=== PATIENT | female | born 1945 | race Caucasian/White ===

== ENCOUNTER 2016-12-29 15:25 | Emergency (ER) | payer OTHER, MEDICARE ==
[2016-12-29 15:33] VITALS: TEMP 97.9
--- NOTE | 2016-12-29 15:49 | CPEKG ---
Heart Rate: 74 RR Interval: 811 P-R Interval: 144 QRSD Interval: 72 QT Interval: 396 QTC Interval: 440 P Jet: 75 QRS Jet: 34 T Wave Jet: 74 EKG Severity - BORDERLINE ECG - EKG Impression: SINUS RHYTHM EKG Impression: BORDERLINE T ABNORMALITIES, ANT-LAT LEADS Electronically Signed By: Jj Lauren 29-Dec-2016 18:15:01
[2016-12-29] MEDS ORDERED: NS 1,000 ML IV ONE (15:58)
--- NOTE | 2016-12-29 16:05 | EDPHY ---
H & P Stated Complaint: chest pressure Time Seen by Provider: 12/29/16 15:38 HPI/ROS: CHIEF COMPLAINT: Chest wall pain HISTORY OF PRESENT ILLNESS: The patient presents to the ED with a 2 day history of chest wall pain. The patient's symptoms began without history of trauma, cough or congestion. She reports a history of similar discomfort with prior history of pneumonia. The patient reportedly used cannabis oil on her chest wall which has resulted in market resolution of her symptoms. The patient was somewhat concerned that her chest pain was software support representative of myocardial infarction prompting her visit to the ED today. Patient has no history of myocardial infarction she does have a history of ulcerative colitis and has chronic abdominal pain from this condition. The patient has undergone a colectomy. She currently has a colostomy bag. The patient reports normal output from the colostomy bag. She denies dysuria. She denies history of exertional chest pain or shortness of breath. Patient denies history of PE or DVT. REVIEW OF SYSTEMS: A comprehensive 10 point review of systems is otherwise negative aside from elements mentioned in the history of present illness. Source: Patient Exam Limitations: No limitations - Personal History Current Tetanus/Diphtheria Vaccine: Unsure - Medical/Surgical History Hx Asthma: Yes Hx Chronic Respiratory Disease: No Hx Diabetes: No Hx Cardiac Disease: No Hx Renal Disease: No Hx Cirrhosis: No Hx Alcoholism: No Hx HIV/AIDS: No Hx Splenectomy or Spleen Trauma: No Other PMH: PMH: asthma, ulcerative colitis, arthritis, chronic neck and back pain, pneumonia, depression, chronic pain with opioid dependence. PSH: Total colectomy with ostomy, 3 sx related to bowel obstructions in the past, HERNIA REPAIR - Social History Smoking Status: Heavy smoker - Physical Exam Exam: General Appearance: Thin female, no acute distress Eyes: Pupils equal and round no pallor or injection ENT, Mouth: Mucous membranes moist Respiratory: Lungs clear to auscultation, mild tenderness to palpation throughout the anterior chest wall Cardiovascular: Regular rate and rhythm Gastrointestinal: Abdomen is soft and nontender, no masses, bowel sounds normal Neurological: A&O, normal motor function, normal sensory exam, normal cranial nerves Skin: Warm and dry, no rashes Musculoskeletal: Neck is supple nontender Extremities: symmetrical, full range of motion Constitutional: Initial Vital Signs Temperature (C) 36.6 C 12/29/16 15:32 Heart Rate 90 12/29/16 15:32 Respiratory Rate 18 12/29/16 15:32 Blood Pressure 109/85 H 12/29/16 15:32 O2 Sat (%) 90 L 12/29/16 15:32 O2 Delivery Mode Nasal Cannula O2 (L/minute) 3 Allergies/Adverse Reactions: amoxicillin Allergy (Verified 12/29/16 15:30) budesonide Allergy (Verified 12/29/16 15:30) cefuroxime Allergy (Verified 12/29/16 15:30) ciprofloxacin Allergy (Verified 12/29/16 15:30) clarithromycin Allergy (Verified 12/29/16 15:30) clavulanic acid Allergy (Verified 12/29/16 15:30) codeine Allergy (Verified 12/29/16 15:30) dicyclomine Allergy (Verified 12/29/16 15:30) Unknown doxycycline Allergy (Verified 12/29/16 15:30) duloxetine HCl [From Cymbalta] Allergy (Verified 12/29/16 15:30) fluconazole Allergy (Verified 12/29/16 15:30) gabapentin Allergy (Verified 12/29/16 15:30) hydrocodone Allergy (Verified 12/29/16 15:30) metronidazole Allergy (Verified 12/29/16 15:30) prednisone Allergy (Verified 12/29/16 15:30) rabeprazole Allergy (Verified 12/29/16 15:30) ranitidine Allergy (Verified 12/29/16 15:30) Home Medications: Medication Instructions Recorded Herbals/Supplements -Info Only 1 ea PO DAILY 08/10/15 Ondansetron Odt [Zofran Odt 4 mg 4 mg PO Q6 PRN 08/10/15 (*)] Albuterol [Proventil Inhaler HFA 2 puffs IH DAILY PRN 08/13/15 (*)] Cholecalciferol Vit D3 [Vitamin D3 1,000 units PO DAILY 05/25/16 (*)] Acetaminophen [Tylenol 325mg (*)] 650 mg PO Q4HRS PRN #0 tab 09/14/16 Melatonin [Melatonin 3 MG (*)] 3 mg PO HS 09/14/16 Nystatin [Mycostatin Oral Liquid 5 ml PO QID PRN 09/14/16 (*)] oxyCODONE IR [Oxycodone Ir (*)] 5 mg PO Q4H PRN 10/22/16 Ascorbic Acid [Vitamin C 500 mg 1,000 mg PO DAILY 11/13/16 (*)] Diazepam [Valium 5 MG (*)] 2.5 - 5 mg PO Q8 PRN 11/13/16 oxyCODONE HCL/ACETAMINOPHEN 1 each PO Q4HRS PRN 11/13/16 [Percocet 10-325 mg Tablet] Acetaminophen [Tylenol 325mg (*)] 650 mg PO Q4HRS PRN #0 tab 11/15/16 Medical Decision Making - Diagnostics EKG Interpretation: EKG: Complete interpretation has been separately recorded in the [email or web address] archive. Summary impression: Sinus rhythm Imaging: Chest x-ray PA lateral: Negative for acute disease by my interpretation ED Course/Re-evaluation: The patient presents to the ED with a 2 day history of anterior chest wall pain which has been resolved with the application of THC ointment. The patient has no ischemic changes on her EKG. The patient has a negative troponin. The patient has stable vital signs and an unremarkable physical examination. At this point time I clinical suspicion for acute coronary syndrome is quite low. I feel she most likely is experiencing musculoskeletal chest pain. The patient will be discharged home and instructed to follow up with her regular primary care provider. She should use ibuprofen for pain. The patient did undergo 3 serial examinations in the ED by myself over a 2.5 hour period. She remained with stable vital signs and an unremarkable physical exam. Differential Diagnosis: Differential diagnosis considered includes costochondritis, pericarditis, acute coronary syndrome, rib fracture, pneumonia, pneumothorax - Data Points Laboratory Results: Laboratory Results 12/29/16 15:45 12/29/16 15:45 12/29/16 15:45 WBC 6.75 10^3/uL (3.80-9.50) RBC 5.22 10^6/uL (4.18-5.33) Hgb 15.3 g/dL (12.6-16.3) Hct 46.9 % (38.0-47.0) MCV 89.8 fL (81.5-99.8) MCH 29.3 pg (27.9-34.1) MCHC 32.6 g/dL (32.4-36.7) RDW 13.5 % (11.5-15.2) Plt Count 346 10^3/uL (150-400) MPV 10.1 fL (8.7-11.7) Neut % (Auto) 76.6 H % (39.3-74.2) Lymph % (Auto) 13.9 L % (15.0-45.0) Davidson % (Auto) 6.4 % (4.5-13.0) Eos % (Auto) 1.5 % (0.6-7.6) Baso % (Auto) 1.3 % (0.3-1.7) Nucleat RBC Rel Count 0.0 % (0.0-0.2) Absolute Neuts (auto) 5.17 10^3/uL (1.70-6.50) Absolute Lymphs (auto) 0.94 L 10^3/uL (1.00-3.00) Absolute Monos (auto) 0.43 10^3/uL (0.30-0.80) Absolute Eos (auto) 0.10 10^3/uL (0.03-0.40) Absolute Basos (auto) 0.09 10^3/uL (0.02-0.10) Absolute Nucleated RBC 0.00 10^3/uL (0-0.01) Immature Gran % 0.3 % (0.0-1.1) Immature Gran # 0.02 10^3/uL (0.00-0.10) Sodium 137 mEq/L (134-144) Potassium 5.8 H mEq/L (3.5-5.2) Chloride 103 mEq/L (97-110) Carbon Dioxide 24 mEq/l (22-31) Anion Gap 10 mEq/L (8-16) BUN 8 mg/dL (7-23) Creatinine 0.6 mg/dL (0.6-1.0) Estimated GFR > 60 Glucose 89 mg/dL (70-100) Calcium 9.6 mg/dL (8.5-10.4) Troponin I < 0.012 ng/mL (0-0.034) Specimen Hemolysis 150 Medications Given: Discontinued Medications Sodium Chloride (Ns) 1,000 mls @ 0 mls/hr IV EDNOW ONE PRN Reason: Wide Open Stop: 12/29/16 15:59 Last Admin: 12/29/16 15:59 Dose: 1,000 mls Departure - Departure Disposition: Home, Routine, Self-Care Clinical Impression: Chest wall pain Condition: Good Instructions: Chest Wall Pain (ED) Additional Instructions: 1. Take Ibuprofen or Motrin 600 mg by mouth three times a day. 2. Please return to the ED for markedly worsening symptoms or other concerns. 3. Please schedule a follow-up appointment with your primary care provider as needed
[2016-12-29 16:12] LABS: % IMMATURE GRANULYOCYTES 0.3 % (0.0-1.1); ABSOLUTE IMMATURE GRANULOCYTES 0.02 10^3/uL (0.00-0.10); ADD DIFF? NO; ADD MORPH? NO; ADD SCAN? NO; ATYPICAL LYMPHOCYTE FLAG 10 (0-99); FRAGMENT RBC FLAG 0 (0-99); HEMATOCRIT 46.9 % (38.0-47.0); HEMOGLOBIN 15.3 g/dL (12.6-16.3); LEFT SHIFT FLG 0 (0-99); LIPEMIA HEMOLYSIS FLAG 80 (0-99); MEAN CELL HEMOGLOBIN 29.3 pg (27.9-34.1); MEAN CELL HEMOGLOBIN CONCENTR. 32.6 g/dL (32.4-36.7); MEAN CELL VOLUME 89.8 fL (81.5-99.8); MEAN PLATELET VOLUME 10.1 fL (8.7-11.7); PLATELET CLUMPS FLAG 0 (0-99); PLATELET COUNT 346 10^3/uL (150-400); RED BLOOD CELL COUNT 5.22 10^6/uL (4.18-5.33); RED CELL DISTRIBUTION WIDTH 13.5 % (11.5-15.2)
[2016-12-29 16:18] LABS: ANION GAP 10 mEq/L (8-16); CALCIUM 9.6 mg/dL (8.5-10.4); CARBON DIOXIDE 24 mEq/l (22-31); CHLORIDE 103 mEq/L (97-110); CREATININE 0.6 mg/dL (0.6-1.0); GLOMERULAR FILTRATION RATE > 60; GLUCOSE 89 mg/dL (70-100); POTASSIUM 5.8 mEq/L (3.5-5.2); SODIUM 137 mEq/L (134-144); SPECIMEN HEMOLYSIS 150
[2016-12-29 16:30] LABS: TROPONIN I < 0.012 ng/mL (0-0.034)
[2016-12-29 16:32] VITALS: BP 118/60
--- NOTE | 2016-12-29 17:45 | DX ---
Chest, Two Views at 1547 hours History: Chest pain. Comparison: October 2016 Findings: Cardiac silhouette is within normal range. Hyperinflation lungs and flattening the hemidiap hragms consistent with COPD. Alveolar opacity in the right lower lobe consistent with pneumonia, new since previous study. Previous cervical fusion hardware. Thoracic dextroscoliosis. No definite pleura l effusion. Impression: 1. Right lower lobe pneumonia. 2. COPD. 3. Recommend follow-up until clear.
[2016-12-29] MEDS ORDERED: IBUPROFEN 600 MG TAB PO ONE (18:45)
[2016-12-29 18:56] VITALS: PULSE 68; RESP 16; O2SAT 98
== END 2016-12-29 18:48 | disposition home or self-care (01) ==
DX: R07.89 Other chest pain (principal); J45.909 Unspecified asthma, uncomplicated; F17.200 Nicotine dependence, unspecified, uncomplicated

== ENCOUNTER 2017-02-27 18:13 | Inpatient (IN) | payer OTHER, MEDICARE ==
--- NOTE | 2017-02-27 18:40 | EDPHY ---
H & P Stated Complaint: abd [id number] abd hx Time Seen by Provider: 02/27/17 18:40 - Personal History Current Tetanus Diphtheria and Acellular Pertussis (TDAP): Unsure - Medical/Surgical History Hx Asthma: Yes Hx Chronic Respiratory Disease: No Hx Diabetes: No Hx Cardiac Disease: No Hx Renal Disease: No Hx Cirrhosis: No Hx Alcoholism: No Hx HIV/AIDS: No Hx Splenectomy or Spleen Trauma: No Other PMH: PMH: asthma, ulcerative colitis, arthritis, chronic neck and back pain, pneumonia, depression, chronic pain with opioid dependence. PSH: Total colectomy with ostomy, 3 sx related to bowel obstructions in the past, HERNIA REPAIR - Social History Smoking Status: Heavy smoker Constitutional: Initial Vital Signs Temperature (C) 36.6 C 02/27/17 18:18 Heart Rate 91 02/27/17 18:18 Respiratory Rate 16 02/27/17 18:18 Blood Pressure 135/81 H 02/27/17 18:18 O2 Sat (%) 96 02/27/17 18:18 O2 Delivery Mode Room Air Allergies/Adverse Reactions: amoxicillin Allergy (Verified 02/27/17 18:17) budesonide Allergy (Verified 02/27/17 18:17) cefuroxime Allergy (Verified 02/27/17 18:17) ciprofloxacin Allergy (Verified 02/27/17 18:17) clarithromycin Allergy (Verified 02/27/17 18:17) clavulanic acid Allergy (Verified 02/27/17 18:17) codeine Allergy (Verified 02/27/17 18:17) dicyclomine Allergy (Verified 02/27/17 18:17) Unknown doxycycline Allergy (Verified 02/27/17 18:17) duloxetine HCl [From Cymbalta] Allergy (Verified 02/27/17 18:17) fluconazole Allergy (Verified 02/27/17 18:17) gabapentin Allergy (Verified 02/27/17 18:17) hydrocodone Allergy (Verified 02/27/17 18:17) metronidazole Allergy (Verified 02/27/17 18:17) prednisone Allergy (Verified 02/27/17 18:17) rabeprazole Allergy (Verified 02/27/17 18:17) ranitidine Allergy (Verified 02/27/17 18:17) Home Medications: Medication Instructions Recorded Herbals/Supplements -Info Only 1 ea PO DAILY 08/10/15 Ondansetron Odt [Zofran Odt 4 mg 4 mg PO Q6 PRN 08/10/15 (*)] Albuterol [Proventil Inhaler HFA 2 puffs IH DAILY PRN 08/13/15 (*)] Cholecalciferol Vit D3 [Vitamin D3 1,000 units PO DAILY 05/25/16 (*)] Acetaminophen [Tylenol 325mg (*)] 650 mg PO Q4HRS PRN #0 tab 09/14/16 Melatonin [Melatonin 3 MG (*)] 3 mg PO HS 09/14/16 Nystatin [Mycostatin Oral Liquid 5 ml PO QID PRN 09/14/16 (*)] oxyCODONE IR [Oxycodone Ir (*)] 5 mg PO Q4H PRN 09/14/16 Ascorbic Acid [Vitamin C 500 mg 1,000 mg PO DAILY 11/13/16 (*)] Diazepam [Valium 5 MG (*)] 2.5 - 5 mg PO Q8 PRN 11/13/16 oxyCODONE HCL/ACETAMINOPHEN 1 each PO Q4HRS PRN 11/13/16 [Percocet 10-325 mg Tablet] Acetaminophen [Tylenol 325mg (*)] 650 mg PO Q4HRS PRN #0 tab 11/15/16 Medical Decision Making ED Course/Re-evaluation: CHIEF COMPLAINT: Chronic abdominal pain HISTORY OF PRESENT ILLNESS: The patient is a 71 y/o female, with 5 previous ED visit for abdominal pain in the last year, complaining of chronic abdominal pain for the last several months. She had an ostomy performed by Dr. Montgomery for ulcerative colitis. The patient reports she followed up with Dr. Montgomery 2 days ago and "she couldn't do anything" for her pain. She was unable to see Dr. Oliveira. Her PCP manages her pain, but has been reducing her narcotic prescriptions recently. The patient says she is using 5 pills of 10mg Oxycodone and 2 doses of 5mg Oxycodone every day without alleviation of her pain. REVIEW OF SYSTEMS: A 10 point review of systems was performed and is negative with the exception of the elements mentioned in the history of present illness. PHYSICAL EXAM: HR, BP, O2 Sat, RR. Temp noted General Appearance: Alert, well hydrated, appropriate, and malnourished appearing. Head: Atraumatic without scalp tenderness or obvious injury Eyes: Pupils equal, round, reactive to light and accommodation, EOMI, no trauma , no injection. Ears: Clear bilaterally, no perforation, normal landmarks Nose: Atraumatic, no rhinorrhea, clear. Throat: There is no erythema or exudates, no lesions, normal tonsils, mucus membranes moist. Neck: Supple, nontender, no lymphadenopathy. Respiratory: No retractions, no distress, no wheezes, and no accessory muscle use. Lungs are clear to auscultation bilaterally. Cardiovascular: Regular rate and rhythm, no murmurs, rubs, or gallops. Good capillary refill all extremities. Gastrointestinal: Abdomen is soft, diffusely tender, non-distended, no masses, no rebound, no guarding, no peritoneal signs. Ostomy has normal output. Musculoskeletal: Normal active ROM of all extremities, atraumatic. Neurological: Alert, appropriate, and interactive. The patient has normal DTRs and non-focal cranial nerves, motor, sensory, and cerebellar exam. Skin: No rashes, good turgor, no nodules on palpation. Past medical history: chronic abdominal pain, ulcerative colitis status post colectomy, chronic continuous opioid dependency, COPD, chronic hypoxemic respiratory failure, depression, anxiety, malnutrition Past surgical history: total colectomy with ostomy - Dr. Montgomery, hernia repair, cervical spine surgery, take down of J-pouch, lysis of adhesions Family history: noncontributory Social history: Family member at bedside. PCP: Kavita Maldonado Prior medical records reviewed including admission 11/13/16 for chronic abdominal pain and vomiting. DIAGNOSTICS/PROCEDURES/CRITICAL CARE TIME: I viewed the images myself on the PACS system. DIFFERENTIAL DIAGNOSIS: The differential diagnosis for the patient's abdominal pain included but was not limited to chronic abdominal pain, ovarian cyst, pelvic inflammatory disease, ovarian torsion, urinary tract infection, ectopic , cholecystitis, and appendicitis. MEDICAL DECISION MAKING: This is a 71 y/o female with a history of chronic abdominal pain and continuous opioid dependency presenting with the same pain again. Her ostomy has had normal output and she denies any new symptoms. She is unwilling to allow me to touch her abdomen due to pain, so examination is difficult. Plan to consult her surgeon and manage her symptoms. IV established. Labs drawn including CBC, CHEM , lipase, LFTs, and UA. 2 tabs PO Oxycodone and 5mg PO Valium administered. 1899: Consulted with Dr. Friedman, surgeon, who is on-call for Dr. Montgomery. He will assess patient in the ED. 1929: Dr. Friedman requests a CTA to rule out ischemic bowel and recommends admission. 1999: Spoke with Dr. Ayon, hospitalist. She accepts admission for chronic abdominal pain. - Data Points Laboratory Results: Laboratory Results 02/27/17 19:23 02/27/17 19:23 02/27/17 02/27/17 19:23 19:23 WBC 7.07 10^3/uL 10^3/uL (3.80-9.50) RBC 4.97 10^6/uL 10^6/uL (4.18-5.33) Hgb 14.3 g/dL g/dL (12.6-16.3) Hct 43.8 % % (38.0-47.0) MCV 88.1 fL fL (81.5-99.8) MCH 28.8 pg pg (27.9-34.1) MCHC 32.6 g/dL g/dL (32.4-36.7) RDW 13.3 % % (11.5-15.2) Plt Count 337 10^3/uL 10^3/uL (150-400) MPV 9.9 fL fL (8.7-11.7) Neut % (Auto) 76.2 % H % (39.3-74.2) Lymph % (Auto) 14.1 % L % (15.0-45.0) Cottle % (Auto) 7.1 % % (4.5-13.0) Eos % (Auto) 0.7 % % (0.6-7.6) Baso % (Auto) 1.6 % % (0.3-1.7) Nucleat RBC Rel Count 0.0 % % (0.0-0.2) Absolute Neuts (auto) 5.39 10^3/uL 10^3/uL (1.70-6.50) Absolute Lymphs (auto) 1.00 10^3/uL 10^3/uL (1.00-3.00) Absolute Monos (auto) 0.50 10^3/uL 10^3/uL (0.30-0.80) Absolute Eos (auto) 0.05 10^3/uL 10^3/uL (0.03-0.40) Absolute Basos (auto) 0.11 10^3/uL H 10^3/uL (0.02-0.10) Absolute Nucleated RBC 0.00 10^3/uL 10^3/uL (0-0.01) Immature Gran % 0.3 % % (0.0-1.1) Immature Gran # 0.02 10^3/uL 10^3/uL (0.00-0.10) Sodium 138 mEq/L mEq/L (134-144) Potassium 5.0 mEq/L mEq/L (3.5-5.2) Chloride 99 mEq/L mEq/L (97-110) Carbon Dioxide 30 mEq/l mEq/l (22-31) Anion Gap 9 mEq/L mEq/L (8-16) BUN 12 mg/dL mg/dL (7-23) Creatinine 0.7 mg/dL mg/dL (0.6-1.0) Estimated GFR > 60 Glucose 93 mg/dL mg/dL (70-100) Calcium 10.1 mg/dL mg/dL (8.5-10.4) Total Bilirubin 0.6 mg/dL mg/dL (0.1-1.4) Conjugated Bilirubin 0.4 mg/dL mg/dL (0.0-0.5) Unconjugated Bilirubin 0.2 mg/dL mg/dL (0.0-1.1) AST 33 IU/L IU/L (14-46) ALT 39 IU/L IU/L (9-52) Alkaline Phosphatase 115 IU/L IU/L (38-126) Total Protein 7.9 g/dL g/dL (6.3-8.2) Albumin 4.3 g/dL g/dL (3.5-5.0) Lipase 21.0 IU/L L IU/L (23-300) Medications Given: Discontinued Medications Diazepam (Valium) 5 mg PO EDNOW ONE Stop: 02/27/17 19:32 Last Admin: 02/27/17 19:34 Dose: 5 mg Hydromorphone HCl (Dilaudid) 2 mg PO EDNOW ONE Stop: 02/27/17 18:53 Last Admin: 02/27/17 18:55 Dose: 2 mg Departure - Departure Disposition: [facility] In[facility] Acute Clinical Impression: Chronic abdominal pain Condition: Fair Report Scribed for: Billy Durant Report Scribed by: Diana Irvin Date of Report: 02/27/17 Time of Report: 18:44
[2017-02-27] MEDS ORDERED: HYDROmorphONE/DILAUDID 2 MG TAB PO ONE (18:52)
[2017-02-27] MEDS ORDERED: DIAZEPAM 5 MG TAB PO ONE (19:31)
[2017-02-27 19:35] LABS: % IMMATURE GRANULYOCYTES 0.3 % (0.0-1.1); ABSOLUTE IMMATURE GRANULOCYTES 0.02 10^3/uL (0.00-0.10); ADD DIFF? NO; ADD MORPH? NO; ADD SCAN? NO; ATYPICAL LYMPHOCYTE FLAG 10 (0-99); FRAGMENT RBC FLAG 10 (0-99); HEMATOCRIT 43.8 % (38.0-47.0); HEMOGLOBIN 14.3 g/dL (12.6-16.3); LEFT SHIFT FLG 0 (0-99); LIPEMIA HEMOLYSIS FLAG 80 (0-99); MEAN CELL HEMOGLOBIN 28.8 pg (27.9-34.1); MEAN CELL HEMOGLOBIN CONCENTR. 32.6 g/dL (32.4-36.7); MEAN CELL VOLUME 88.1 fL (81.5-99.8); MEAN PLATELET VOLUME 9.9 fL (8.7-11.7); PLATELET CLUMPS FLAG 0 (0-99); PLATELET COUNT 337 10^3/uL (150-400); RED BLOOD CELL COUNT 4.97 10^6/uL (4.18-5.33); RED CELL DISTRIBUTION WIDTH 13.3 % (11.5-15.2)
[2017-02-27 19:40] LABS: ALANINE AMINOTRANSFERASE 39 IU/L (9-52); ALBUMIN 4.3 g/dL (3.5-5.0); ALKALINE PHOSPHATASE 115 IU/L (38-126); ANION GAP 9 mEq/L (8-16); ASPARTATE AMINOTRANSFERASE 33 IU/L (14-46); BILIRUBIN,TOTAL 0.6 mg/dL (0.1-1.4); BILIRUBIN-CONJUGATED 0.4 mg/dL (0.0-0.5); BILIRUBIN-UNCONJUGATED 0.2 mg/dL (0.0-1.1); CALCIUM 10.1 mg/dL (8.5-10.4); CARBON DIOXIDE 30 mEq/l (22-31); CHLORIDE 99 mEq/L (97-110); CREATININE 0.7 mg/dL (0.6-1.0); GLOMERULAR FILTRATION RATE > 60; GLUCOSE 93 mg/dL (70-100); SODIUM 138 mEq/L (134-144); TOTAL PROTEIN 7.9 g/dL (6.3-8.2)
[2017-02-27] MEDS ORDERED: IOPAMIDOL (ISOVUE 370) 100 ML BTL IV ONE (19:43)
[2017-02-27] MEDS ORDERED: ONDANSETRON 4 MG/2 ML VIAL IVP PRN (20:00)
[2017-02-27] MEDS ORDERED: OXYCODONE/APAP 5/325 TAB PO PRN (20:00)
[2017-02-27] MEDS ORDERED: ACETAMINOPHEN 325 MG TAB PO PRN (20:00)
[2017-02-27] MEDS ORDERED: ALBUTEROL 60 PUFFS/8 GM MDI IH PRN (21:20)
[2017-02-27] MEDS ORDERED: HYDROGEN PEROXIDE 236 ML BOTTLE TP PRN (21:20)
[2017-02-27] MEDS ORDERED: DIAZEPAM 5 MG TAB PO PRN ×2 (21:20→22:40)
--- NOTE | 2017-02-27 22:13 | GHP ---
[f rep st] HISTORY AND PHYSICAL DATE OF ADMISSION: 02/27/2017 CHIEF COMPLAINT: Abdominal pain. HISTORY OF PRESENT ILLNESS: This is a 71-year-old female with a longstanding history of chronic abd ominal pain, status post total colectomy with ostomy for ulcerative colitis, who presents after seei ng an outpatient provider everyday this week with persisting unmanageable abdominal pain. The patie nt reports that her pain is markedly worse first thing when she wakes up in the morning, and is mini jane treated by pain medications to allow her to tolerate some p.o. intake, but again, gets markedl y worse later in the day. The patient reports the ability to take some p.o. intake, but her nutriti onal intake overall is markedly decreased. She reports that her ostomy output more recently has bec ome more solid. She denies any bloodiness or melena, denies any dysuria, denies any hematuria, fredy es any chest pain or palpitations. Does have intermittent shortness of breath and uses oxygen at [facility]. Denies any subjective fevers or chills, any new rashes, and simply describes this chronic, unr elenting pain has become truly unmanageable. PAST MEDICAL HISTORY: 1. Ulcerative colitis, status post total colectomy with ostomy. 2. Chronic pain with continuous opioid dependency. 3. COPD. 4. Chronic hypoxic respiratory failure thought secondary to COPD and hyperventilation from opioid t herapy. 5. Depression. 6. Anxiety. 7. Severe protein-calorie malnutrition. SOCIAL HISTORY: Patient smokes a pack of cigarettes a day. Denies alcohol, but does use daily THC tinctures and occasionally smokes marijuana, as well. FAMILY HISTORY: Negative for ulcerative colitis. ADVANCED DIRECTIVES: Patient is full cor, full tube. REVIEW OF SYSTEMS: A 10-point review of systems is negative with the exception of that reported in the HPI. PHYSICAL EXAMINATION: VITAL SIGNS: Blood pressure is 111/56, heart rate 66, respiratory rate 20, 9 4 on room air, 36.6. GENERAL: This is a cachectic-appearing elderly female in mild distress. HEEN T: Notable for dry mucous membranes. Eye exam is negative for any icterus. CARDIAC: Patient is r egular rate and rhythm. PULMONARY: Clear to auscultation bilaterally. GASTROINTESTINAL: The lotus ent has positive bowel sounds, ostomy output appears nonbloody. The patient is tender in all 4 quad rants. MUSCULOSKELETAL: Negative for any lower extremity edema. SKIN: Has chronic changes of the bilateral lower extremities. NEUROLOGIC: She is alert and oriented x3. PSYCHIATRIC: She is depr essed. LABORATORY DATA: White count 7.07, hematocrit 43, creatinine 0.7. Lipase low at 21. CT of the abd omen and pelvis, which I personally reviewed and interpreted shows no acute abscess or abnormality. Official recording from radiology is pending with the description of chronic postsurgical changes. ASSESSMENT AND PLAN: A 71-year-old female with chronic abdominal pain. 1. Acute on chronic abdominal pain. Initial radiographic review does not show acute cause of her w orsening symptoms. I am encouraged that her stooling has been more regular and that she has not had nausea and vomiting in the home. Will initiate a regular diet with p.r.n. antiemetics and pain med ications. Will consult with both Gastroenterology and General Surgery for recommendations on the ne xt step of diagnostic workup. She is quite thin, wonder about SMA syndrome. 2. Severe protein-calorie malnutrition. It appears the longstanding gastrointestinal complaints milligan ve led to malnutrition. Will ask dietary to see the patient and make recommendations on high-calori e repletion. 3. Depression and anxiety. Will continue her home medications. 4. Chronic pain with continuous opioid dependency. Once reconciled, will continue her home medicat ions with p.r.n. IV medications, as well. 5. Prophylaxis with Lovenox. DIET: She can tolerate regular. DISPOSITION: I expect greater than 2 midnights, as patient is presenting with a difficult complaint that will take diagnostics and coordinated care to address. I have discussed the case with the [facility] physician. Patient will be triaged to the medical-surgical floor for care. /[id number]/MODL
[2017-02-27] MEDS ORDERED: HYDROCODONE/APAP 10/325 TAB PO PRN (22:45)
[2017-02-27] MEDS: DIAZEPAM 5 MG TAB PO PRN (23:11)
[2017-02-28 00:15] LABS: COLOR YELLOW; LEUKOCYTE ESTERASE,URINE NEGATIVE (NEGATIVE); NITRITE,URINE NEGATIVE (NEGATIVE)
[2017-02-28] MEDS: oxyCODONE IR 5 MG TAB PO PRN ×5 (00:57→20:58)
[2017-02-28] MEDS: ONDANSETRON DISINTEGRATING 4 MG TAB PO PRN ×4 (02:12→22:17)
[2017-02-28] MEDS: OXYCODONE/APAP 5/325 TAB PO PRN ×5 (02:12→20:57)
[2017-02-28] MEDS: MELATONIN 3 MG TAB PO SCH (03:26)
[2017-02-28 05:18] LABS: % IMMATURE GRANULYOCYTES 0.2 % (0.0-1.1); ABSOLUTE IMMATURE GRANULOCYTES 0.01 10^3/uL (0.00-0.10); ADD DIFF? NO; ADD MORPH? NO; ADD SCAN? NO; ATYPICAL LYMPHOCYTE FLAG 20 (0-99); FRAGMENT RBC FLAG 0 (0-99); HEMATOCRIT 37.7 % (38.0-47.0); HEMOGLOBIN 12.1 g/dL (12.6-16.3); LEFT SHIFT FLG 0 (0-99); LIPEMIA HEMOLYSIS FLAG 80 (0-99); MEAN CELL HEMOGLOBIN 29.4 pg (27.9-34.1); MEAN CELL HEMOGLOBIN CONCENTR. 32.1 g/dL (32.4-36.7); MEAN CELL VOLUME 91.5 fL (81.5-99.8); MEAN PLATELET VOLUME 10.2 fL (8.7-11.7); PLATELET CLUMPS FLAG 0 (0-99); PLATELET COUNT 244 10^3/uL (150-400); RED BLOOD CELL COUNT 4.12 10^6/uL (4.18-5.33); RED CELL DISTRIBUTION WIDTH 13.4 % (11.5-15.2)
[2017-02-28 05:31] LABS: ANION GAP 9 mEq/L (8-16); CARBON DIOXIDE 27 mEq/l (22-31); CHLORIDE 103 mEq/L (97-110); CREATININE 0.7 mg/dL (0.6-1.0); GLOMERULAR FILTRATION RATE > 60; GLUCOSE 57 mg/dL (70-100); POTASSIUM 4.4 mEq/L (3.5-5.2); SODIUM 139 mEq/L (134-144)
[2017-02-28] MEDS: HYDROmorphONE/DILAUDID 1 MG/ML SYR IVP PRN ×3 (06:07→20:00)
[2017-02-28] MEDS: DIAZEPAM 5 MG TAB PO PRN ×2 (08:26→16:32)
[2017-02-28] MEDS: CHOLECALCIFEROL VIT D3 1,000 UNITS TAB PO SCH (08:32)
[2017-02-28] MEDS: ENOXAPARIN 40 MG/0.4 ML SYR SC SCH (08:32)
[2017-02-28] MEDS: ASCORBIC ACID 500 MG TAB PO SCH (08:32)
[2017-02-28] MEDS ORDERED: Herbals/Supplements -Info Only PO SCH (09:00)
--- NOTE | 2017-02-28 13:04 | SOAPPROG ---
SOAP Progress Note Assessment/Plan: Assessment: 71yo female with Hx of chronic ab pain, Hx of ulcerative colitis, Hx of remote colectomy with ileostomy, followed later by laparotomy lysis of adhesions ileostomy revision. "ate too much today, abdomen still hurts though not as bad as yesterday". Upset about home situation re relationship with . PE awake alert sitting up, cachectic stool in ostomy, bowel sounds present upon auscultation. CTA from yesterday reviewed, negative. Plan: Try to explain to pt many times that it is unlikely that there is any immediate surgical indication. Patient was frustrated I could not spend more time discussing relationship issues, home issues. 02/28/17 12:56 Objective: Vital Signs Temp Pulse Resp BP Pulse Ox 37.1 C 79 18 111/61 90 L 02/28/17 11:13 02/28/17 11:13 02/28/17 11:13 02/28/17 11:13 02/28/17 11:13 Laboratory Results 02/28/17 04:40 02/28/17 04:40 ICD10 Worksheet Patient Problems: Problems Problem Status Onset Chronic abdominal pain Acute Abdominal pain Acute Abdominal pain, generalized Acute C. difficile diarrhea Acute 05/25/16 Chronic Disease Mgmt/Transitional Care Acute Colonic stricture Acute Constipation by outlet dysfunction Acute Diarrhea in adult patient Acute Failure to thrive in adult Acute Gastroenteritis Acute Generalized pain Acute Hypoxemia Acute Intractable abdominal pain Acute Ulcerative colitis Acute
--- NOTE | 2017-02-28 13:40 | HOSPPROG ---
Hospitalist Progress Note Assessment/Plan: * acute on chronic abdominal pain in setting of ulcerative colitis and multiple bowel surgeries * CTA did not show any significant bowel ischemia * will have GI see * suspect etiology of her pain will be elusive * will check pancreatic elastase to look a pancreatic function * history of ulcer colitis with ileostomy and recent revision about a year ago * COPD * chronic pain * osteoarthritis * tobacco abuse Subjective: pain is about the same. Objective: Vital Signs Temp Pulse Resp BP Pulse Ox 37.1 C 79 18 111/61 90 L 02/28/17 11:13 02/28/17 11:13 02/28/17 11:13 02/28/17 11:13 02/28/17 11:13 Laboratory Results 02/28/17 04:40 02/28/17 04:40 Discussed with surgery and Gastroenterology. CT scan of the abdomen pelvis personally viewed - Physical Exam Constitutional: no apparent distress, appears nourished, not in pain Eyes: anicteric sclera, EOMI Ears, Nose, Mouth, Throat: moist mucous membranes, hearing normal, ears appear normal Cardiovascular: regular rate and rhythym, no murmur, rub, or gallop Respiratory: no respiratory distress, reduced air movement Gastrointestinal: normoactive bowel sounds, tenderness ( diffuse), other ( ileostomy with gas and stool) Skin: warm Neurologic: AAOx3 Psychiatric: interacting appropriately, not anxious, not encephalopathic, thought process linear ICD10 Worksheet Patient Problems: Problems Problem Status Onset Chronic abdominal pain Acute Abdominal pain Acute Abdominal pain, generalized Acute C. difficile diarrhea Acute 05/25/16 Chronic Disease Mgmt/Transitional Care Acute Colonic stricture Acute Constipation by outlet dysfunction Acute Diarrhea in adult patient Acute Failure to thrive in adult Acute Gastroenteritis Acute Generalized pain Acute Hypoxemia Acute Intractable abdominal pain Acute Ulcerative colitis Acute
--- NOTE | 2017-02-28 18:10 | GCON ---
[f rep st] CONSULTATION REFERRING PHYSICIAN: Jamari Vazquez MD ASSESSMENT: 71-year-old female with a history of ulcerative colitis who initially underwent subtotal colectomy with ileal polyps in 2004 with subsequent end ileostomy in June 2016 secondary to abdominal pain, diarrhea, and anal stricture who has had chronic abdominal pain and was admitted for acute on chronic abdominal pain. Her abdominal pain is diffuse and worse in the left lower quadrant. She most likely has chronic abdominal pain syndrome. In addition, she has chronic pancreatitis on CT imaging and abdominal atherosclerotic disease. RECOMMENDATIONS: 1. I agree with the previous recommendations for pain management and consultation with Pain Clinic. 2. She is very depressed and endorses the desire to not go on living and, therefore, would benefit from mental health consultation and counseling. 3. Agree with checking a fecal lactase to see if she would benefit from pancreatic enzymes. 4. At this point, I do not think endoscopic evaluation with EGD, endoscopic ultrasound, or ileoscopy is going to explain her pain. Thank you for allowing me to participate in the care of patient. Please do not hesitate to call with questions. CHIEF COMPLAINT: I was asked to see the patient in consultation by Dr. Vazquez for the chief complaint of diffuse acute on chronic abdominal pain, chronic pancreatitis, history of ulcerative colitis. HISTORY OF PRESENT ILLNESS: The patient is a 71-year-old female, with history of longstanding abdominal pain. She has a history of ulcerative colitis with subtotal colectomy and J pouch in 2004 with subsequent end ileostomy in June 2016 after developing abdominal pain, diarrhea, and anal stricture. She has a history of COPD, hypoxia, respiratory failure, recurrent C diff infections, depression, and chronic pancreatitis. 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 She most recently saw Dr. Jones on February 25, and Dr. Jones advised referral to a pain clinic and application designer. The patient uses marijuana to help supplement narcotics for pain management. Her pain is 10/10 and constant. Nothing makes the pain better. She has been losing weight. She denies any fevers. REVIEW OF SYSTEMS: CONSTITUTIONAL: Negative. HEENT: Negative. RESPIRATORY: Negative. CARDIOVASCULAR: Negative. GASTROINTESTINAL: See history of present illness. She has severe constant abdominal pain which is diffuse and worse in the left lower quadrant. GENITOURINARY: Negative. REPRODUCTIVE ENDOCRINE: Negative. MUSCULOSKELETAL: She feels weak. HEMATOLOGIC/LYMPHATIC : Negative. ALLERGIC/RHEUMATOLOGIC: She has chronic arthritis. SKIN: Negative. NEUROLOGIC: Negative. MENTAL HEALTH: She is very depressed and has a flat base affect. PAST MEDICAL HISTORY: 1. Ulcerative colitis, status post subtotal colectomy and ileal pouch 2004 with subsequent end ileostomy in 2015. 2. Chronic pain with opioid dependence. 3. COPD and ongoing tobacco use. 4. Depression. 5. Anxiety. 6. Severe protein calorie malnutrition. 7. History of C5, C6, C7 cervical neck fusion. 8. History of cholecystectomy. FAMILY HISTORY: There is no family history related to the chief complaint. SOCIAL HISTORY: The patient continues to smoke 1 pack of cigarettes per day. No alcohol use. She uses daily THC tinctures and occasionally smokes marijuana. ALLERGIES: Include amoxicillin, clarithromycin, cefuroxime, ciprofloxacin, codeine, Cymbalta, dicyclomine, doxycycline, Flagyl, fluticasone, gabapentin, hydrocodone, MetroGel, budesonide, ranitidine, and Vicodin. MEDICATIONS: 1. Tylenol. 2. Albuterol. 3. Vitamin C. 4. Vitamin D. 5. Valium. 6. Lovenox. 7. Dilaudid. 8. Melatonin. 9. Zofran. 10. Oxycodone. 11. Percocet. PHYSICAL EXAMINATION: VITAL SIGNS: Blood pressure is 111/61, heart rate 79, respiratory rate 18, saturating 90% on 2 L of oxygen. GENERAL: She is a thin frail appearing female lying in bed. HEENT: PERRL. Oral mucosa is moist. CHEST: Clear to auscultation bilaterally without rales, rhonchi, or wheezing. CARDIOVASCULAR: Regular rate and rhythm. No murmurs, rubs, or gallops. ABDOMEN: Diffusely tender to light and deep palpation. Ostomy has brown stool in it. She has midline surgical incision site. MUSCULOSKELETAL: She has decreased muscle tone and bulk, but there is full range of motion in her extremities. SKIN: [place], warm, well perfused. NEUROLOGIC: Grossly nonfocal. LYMPH NODES: No palpable lymph nodes. PSYCHIATRIC: She is oriented x3. She is depressed and has a flat affect. LABORATORY VALUES: White blood cell count is 4, hemoglobin 12, hematocrit 37, platelet count is 244. LFTs normal. Bilirubin is 0.6. AST 33, ALT 39, alkaline phosphatase 115, total protein 7.9, albumin 4.3, lipase is 21. Sodium 139, potassium 4.4, chloride 103, creatinine is 0.7. 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 She has chronic pancreatitis, right nephrolithiasis, and right parapelvic cysts are unchanged. /[id number]/MODL MTDD
[2017-02-28 20:12] VITALS: RESP 16
[2017-02-28] MEDS ORDERED: MELATONIN 3 MG TAB PO SCH (21:00)
[2017-03-01] MEDS: oxyCODONE IR 5 MG TAB PO PRN ×4 (01:10→15:30)
[2017-03-01] MEDS: OXYCODONE/APAP 5/325 TAB PO PRN ×4 (01:11→15:31)
[2017-03-01] MEDS: DIAZEPAM 5 MG TAB PO PRN ×2 (01:12→10:41)
[2017-03-01] MEDS: MELATONIN 3 MG TAB PO SCH (02:32)
[2017-03-01 08:10] VITALS: BP 135/77; PULSE 62; TEMP 97.5; O2SAT 90
[2017-03-01] MEDS: ASCORBIC ACID 500 MG TAB PO SCH (09:20)
[2017-03-01] MEDS: CHOLECALCIFEROL VIT D3 1,000 UNITS TAB PO SCH (09:20)
[2017-03-01] MEDS: ENOXAPARIN 40 MG/0.4 ML SYR SC SCH (09:21)
--- NOTE | 2017-03-01 09:55 | SOAPPROG ---
SOAP Progress Note Assessment/Plan: Assessment: 71yo female with Hx of chronic ab pain, Hx of ulcerative colitis, Hx of remote colectomy with ileostomy, followed later by laparotomy lysis of adhesions ileostomy revision. Patient called last night, collections clerk service while still in hospital. Spoke to pt for greater than 20min regarding her overall condition, pt wanted to speak about home issues, crying, distraught about relationships. Plan: Try to explain to pt many times that it is unlikely that there is any immediate surgical indication. Patient was frustrated I could not spend more time discussing relationship issues, home issues. Appreciate GI input. will discuss with nursing today as pt should not be calling collections clerk service while in hospital. May have nursing call if any issues. 02/28/17 12:56 03/01/17 09:53 Objective: Vital Signs Temp Pulse Resp BP Pulse Ox 36.4 C 62 16 135/77 H 90 L 03/01/17 08:00 03/01/17 08:00 03/01/17 08:00 03/01/17 08:00 03/01/17 08:00 Laboratory Results 02/28/17 04:40 02/28/17 04:40 ICD10 Worksheet Patient Problems: Problems Problem Status Onset Chronic abdominal pain Acute Abdominal pain Acute Abdominal pain, generalized Acute C. difficile diarrhea Acute 05/25/16 Chronic Disease Mgmt/Transitional Care Acute Colonic stricture Acute Constipation by outlet dysfunction Acute Diarrhea in adult patient Acute Failure to thrive in adult Acute Gastroenteritis Acute Generalized pain Acute Hypoxemia Acute Intractable abdominal pain Acute Ulcerative colitis Acute
--- NOTE | 2017-03-01 10:33 | SOAPPROG ---
SOZAK Progress Note Assessment/Plan: Assessment/PLan: 1. Abdominal Pain - uncertain etiology - likely multifactorial - psych, idiopathic, pancreatitis, etc - continue supportive care 2. Inflammatory Bowel disease - s/p colectomy - may have vague post-op pain from hx of multiple surgeries, but no clear evidence to suggest IBD is active or contributing to pain 3. Biliary ductal dilation - likely consequence of chronic narcotic therapy, perhaps some contribution of chronic pancreatitis - doubt choledocholithiasis in setting of nl LFTs - could consider MRCP - can consider EUS/ERC eventually to help evaluate this finding - but would defer for now as yield is low and risk is high 4. Chronic pancreatitis - fecal elastase pending - can be source of pain - if this is contributing, no particular therapy applies (apart from low fat diet) - can add fecal fat collection of resolve if pancreatic insufficiency at play - tobacco cessation should be priority, given impact of smoking on chronic pancreatitis 5. Depression - certainly a large contributor to patients presentation 6. Dispo - patient eating ron, eggs, hash browns this AM and reporting less pain - consider dc home? - can f/u in GI clinic to consider the above, but no plans for added w/u now - will sign off, call with questions - 25min spent in patient care, >50% spent in coordination of care Subjective: CC: continued pain S: able to eat today tolerating eggs, ron, hash browns this AM no vomiting Objective: Vital Signs Temp Pulse Resp BP Pulse Ox 36.4 C 62 16 135/77 H 90 L 03/01/17 08:00 03/01/17 08:00 03/01/17 08:00 03/01/17 08:00 03/01/17 08:00 Laboratory Results 02/28/17 04:40 02/28/17 04:40 Physical Exam - Physical Exam General Appearance: WD/WN, alert EENT: PERRL/EOMI Neck: non-tender Respiratory: lungs clear Cardiac/Chest: normal peripheral pulses Abdomen: normal bowel sounds, non-tender, soft, rebound Skin: normal color ICD10 Worksheet Patient Problems: Problems Problem Status Onset Chronic abdominal pain Acute Abdominal pain Acute Abdominal pain, generalized Acute C. difficile diarrhea Acute 05/25/16 Chronic Disease Mgmt/Transitional Care Acute Colonic stricture Acute Constipation by outlet dysfunction Acute Diarrhea in adult patient Acute Failure to thrive in adult Acute Gastroenteritis Acute Generalized pain Acute Hypoxemia Acute Intractable abdominal pain Acute Ulcerative colitis Acute
--- NOTE | 2017-03-01 11:49 | HOSPPROG ---
Hospitalist Progress Note Assessment/Plan: 71 yo F with hx of chronic abdominal pain with hx of UC s/p subtotal colectomy as well as hx of chronic pancreatitis and SPCM pw acute on chronic pain # acute on chronic abdominal pain: in the setting of having her pain medications cut down by her PCP with underlying history of chronic pain. Imaging without etiology for worsening pain, GI/gen surgery evaluation completed and consult notes reviewed--nothing in terms of intervention likely to improve her sxs at this point. This am eating large breakfast of ron/eggs/ potatoes and no worsening issues. Suspect a large portion of this is related to her tapering off of narcotics with significant somatic overtones. Again recommended she establish care with pain management service which she remains resistant to doing. # chronic pain and continuous narcotic use and dependency: as above patient recently downtitrated on her pain meds as above, f/u with pcp/pain mgmt # malnutrition: chronic and related to above, eating well here in house # hx of UC: s/p subtotal colectomy and subsequent end ileostomy with hx of anal stricture # copd: without evidence of acute exacerbation # dispo: will dc home likely today, patient interested in snf if possible--will have pt evaluate but do not suspect she meets criteria Patient new to my care. Old records reviewed and summarized as above. Reviewed care plan with CM/PT. Subjective: no significant overnight events, patient eating well this am, states pain is better controlled but still there Objective: Vital Signs Temp Pulse Resp BP Pulse Ox 36.4 C 62 16 135/77 H 90 L 03/01/17 08:00 03/01/17 08:00 03/01/17 08:00 03/01/17 08:00 03/01/17 08:00 Laboratory Results 02/28/17 04:40 02/28/17 04:40 cachectic anicteric op clear rrr no mrg cta b soft nt nd +bs no cce warm dry well perfused oriented appropriate - Time Spent With Patient Time Spent with Patient: greater than 35 minutes Time Spent with Patient: Greater than 35 minutes spent on this patients care, greater than 50% of time spent counseling, educating, and coordinating care regarding the above mentioned plan. ICD10 Worksheet Patient Problems: Problems Problem Status Onset Chronic Disease Mgmt/Transitional Care Acute Colonic stricture Acute Ulcerative colitis Acute Constipation by outlet dysfunction Acute Abdominal pain, generalized Acute Abdominal pain Acute Hypoxemia Acute Failure to thrive in adult Acute Diarrhea in adult patient Acute C. difficile diarrhea Acute 05/25/16 Intractable abdominal pain Acute Generalized pain Acute Gastroenteritis Acute Chronic abdominal pain Acute
[2017-03-01] MEDS: ONDANSETRON DISINTEGRATING 4 MG TAB PO PRN (12:00)
--- NOTE | 2017-03-01 14:55 | PDDCSUM ---
Discharge Summary Discharge Summary: Dates of service: 02/27-03/01/17 Consultations: GI, general surgery Procedures: abd ct Hospital course by problem: # acute on chronic abdominal pain: largely appears at baseline, some worsening after having pain meds cut down by her PCP, eating well, ambulating well, eval by GI/gen surg without any intervention that would be likely to help. # chronic pain and continuous narcotic use and dependency: as above patient recently downtitrated on her pain meds as above, f/u with pcp/pain mgmt # malnutrition: chronic and related to above, eating well here in house # hx of UC: s/p subtotal colectomy and subsequent end ileostomy with hx of anal stricture # copd: without evidence of acute exacerbation DC home with f/u with PCP and pain mgmt > 35 minutes spent in dc of patient more than half in coordination of care
== END 2017-03-01 16:12 | disposition home or self-care (01) | DRG 391 ==
LOC: OBSVTOIN 20:00 → F3E 20:45
PROVIDERS: ADMIT Hospitalist; ATTEND Hospitalist
DX: R10.9 Unspecified abdominal pain (principal); E43 Unspecified severe protein-calorie malnutrition; F11.20 Opioid dependence, uncomplicated; G89.29 Other chronic pain; F41.8 Other specified anxiety disorders; J44.9 Chronic obstructive pulmonary disease, unspecified; Z72.0 Tobacco use; Z98.1 Arthrodesis status
CPT/HCPCS: 97161-GP; 97165-GO; G8978-GP-CI; G8979-GP-CI; G8980-GP-CI; G8987-GO-CI; G8988-GO-CI; G8989-GO-CI; J1170; J1650; Q9967

== ENCOUNTER 2017-04-01 17:31 | Emergency (ER) | payer OTHER, MEDICARE ==
[2017-04-01 17:41] VITALS: TEMP 98.1
[2017-04-01] MEDS ORDERED: ONDANSETRON 4 MG/2 ML VIAL IVP ONE (18:03)
[2017-04-01] MEDS ORDERED: KETAMINE 100 MG/10 ML SYR IVP ONE (18:03)
[2017-04-01] MEDS ORDERED: DIAZEPAM 10 MG/2 ML SYR IVP ONE (18:03)
[2017-04-01] MEDS ORDERED: NS 1,000 ML IV ONE (18:03)
--- NOTE | 2017-04-01 18:07 | EDPHY ---
H & P Stated Complaint: Abd pain;needs more pain meds;wants to be admitted;can't get in to pain mgt Time Seen by Provider: 04/01/17 17:42 HPI/ROS: CHIEF COMPLAINT: Chronic abdominal pain and arthritis HISTORY OF PRESENT ILLNESS: Patient is a 71-year-old female with a history of chronic abdominal pain and arthritis. She has a history consistent for ulcerative colitis Status post colectomy with ostomy, chronic pain with opiate dependency, COPD, depression, anxiety and malnutrition. She has been admitted to the hospital several times for pain control. She has been referred several times to pain management. Her doctor recently decreased her opiates and she states that she has had chronic pain for the last month since then. She saw the pain management physician Beverley Proctro today who was recommending a less addictive narcotic but wanted to switch her from Valium to another muscle relaxant. The patient refused this. She states that her pain today is not changed from her baseline but that she simply is here wanting better pain control. She has had normal output from her ostomy. REVIEW OF SYSTEMS: Constitutional: denies: chills, fever, recent illness, recent injury EENTM: denies: blurred vision, double vision, nose congestion Respiratory: denies: cough, shortness of breath Cardiac: denies: chest pain, irregular heart rate, lightheadedness, palpitations Gastrointestinal/Abdominal: Abdominal pain, chronic denies: diarrhea, nausea, vomiting, blood streaked stools Genitourinary: denies: dysuria, frequency, hematuria, pain Musculoskeletal: Chronic diffuse pain Skin: denies: lesions, rash, jaundice, bruising Neurological: denies: headache, numbness, paresthesia, tingling, dizziness, weakness Hematologic/Lymphatic: denies: blood clots, easy bleeding, easy bruising Immunologic/allergic: denies: HIV/AIDS, transplant EXAM: GENERAL: Cachectic, malnourished HEAD: Atraumatic, normocephalic. EYES: Pupils equal round and reactive to light, extraocular movements intact, sclera anicteric, conjunctiva are normal. ENT: TMs normal, nares patent, oropharynx clear without exudates. Slightly dry mucous membranes. NECK: Normal range of motion, supple without lymphadenopathy or JVD. LUNGS: Breath sounds clear to auscultation bilaterally and equal. No wheezes rales or rhonchi. HEART: Regular rate and rhythm without murmurs, rubs or gallops. ABDOMEN: Diffuse pain, patient jumps before palpated, normoactive bowel sounds. No guarding, no rebound. No masses appreciated. BACK: No CVA tenderness, no spinal tenderness, step-offs or deformities EXTREMITIES: Normal range of motion, no pitting or edema. No clubbing or cyanosis. NEUROLOGICAL: Cranial nerves II through XII grossly intact. Normal speech, normal gait. 5/5 strength, normal movement in all extremities, normal sensation PSYCH: Normal mood, normal affect. SKIN: Warm, dry, normal turgor, no visible rashes or lesions. Source: Patient Exam Limitations: No limitations - Personal History Current Tetanus Diphtheria and Acellular Pertussis (TDAP): No - Medical/Surgical History Hx Asthma: Yes Hx Chronic Respiratory Disease: No Hx Diabetes: No Hx Cardiac Disease: No Hx Renal Disease: No Hx Cirrhosis: No Hx Alcoholism: No Hx HIV/AIDS: No Hx Splenectomy or Spleen Trauma: No Other PMH: PMH: asthma, ulcerative colitis, arthritis, chronic neck and back pain, pneumonia, depression, chronic pain with opioid dependence. PSH: Total colectomy with ostomy, 3 sx related to bowel obstructions in the past, HERNIA REPAIR - Family History Significant Family History: No pertinent family hx - Social History Smoking Status: Heavy smoker Alcohol Use: Sober Drug Use: None Constitutional: Initial Vital Signs Temperature (C) 36.7 C 04/01/17 17:35 Heart Rate 92 04/01/17 17:35 Respiratory Rate 18 04/01/17 17:35 Blood Pressure 104/68 04/01/17 17:35 O2 Sat (%) 91 L 04/01/17 17:35 O2 Delivery Mode Room Air Allergies/Adverse Reactions: amoxicillin Allergy (Verified 04/01/17 17:31) budesonide Allergy (Verified 04/01/17 17:31) cefuroxime Allergy (Verified 04/01/17 17:31) ciprofloxacin Allergy (Verified 04/01/17 17:31) clarithromycin Allergy (Verified 04/01/17 17:31) clavulanic acid Allergy (Verified 04/01/17 17:31) codeine Allergy (Verified 04/01/17 17:31) dicyclomine Allergy (Verified 04/01/17 17:31) Unknown doxycycline Allergy (Verified 04/01/17 17:31) duloxetine HCl [From Cymbalta] Allergy (Verified 04/01/17 17:31) fluconazole Allergy (Verified 04/01/17 17:31) gabapentin Allergy (Verified 04/01/17 17:31) hydrocodone Allergy (Verified 04/01/17 17:31) metronidazole Allergy (Verified 04/01/17 17:31) prednisone Allergy (Verified 04/01/17 17:31) rabeprazole Allergy (Verified 04/01/17 17:31) ranitidine Allergy (Verified 04/01/17 17:31) Home Medications: Medication Instructions Recorded Herbals/Supplements -Info Only 1 ea PO DAILY 08/10/15 Ondansetron Odt [Zofran Odt 4 mg 4 mg PO Q6 PRN 08/10/15 (*)] Albuterol [Proventil Inhaler HFA 2 puffs IH DAILY PRN 08/13/15 (*)] Cholecalciferol Vit D3 [Vitamin D3 1,000 units PO DAILY 05/25/16 (*)] Melatonin [Melatonin 3 MG (*)] 3 mg PO HS 09/14/16 oxyCODONE IR [Oxycodone Ir (*)] 5 mg PO Q4H PRN 09/14/16 Ascorbic Acid [Vitamin C 500 mg 1,000 mg PO DAILY 11/13/16 (*)] Diazepam [Valium 5 MG (*)] 2.5 - 5 mg PO TID PRN 11/13/16 oxyCODONE HCL/ACETAMINOPHEN 1 - 2 each PO Q4HRS PRN MDD 5 tabs 11/13/16 [Percocet 10-325 mg Tablet] Hydrogen Peroxide [Hydrogen 1 ben TP BID PRN 02/27/17 Peroxide (OTC)] Acetaminophen [Tylenol 325mg (*)] 650 mg PO Q4HRS PRN #0 tab 03/01/17 Medical Decision Making ED Course/Re-evaluation: The patient is here for pain management. She is refusing to take the [place] of her pain management physician and primary care physicians who were trying to wean her off of opiates. I told her that I will not provide her opiates here in the emergency department and I will not admit her. I feel that this would be detrimental to her progress. I explained to her that opiates are sensitized in her and making her have more severe and chronic pain. Her agrees with this. I will try and treat her with non narcotics here in the emergency department as well as hydration. She is tearful and frustrated. Her is supportive. 6:50 p.m. the patient has been seen by case management. She will be sent a no Narc letter. The patient was at her pain management doctors today and when they discussed her plan her states she went irate and demanded to come to the ER . He agrees with our plan currently and not giving her narcotics. The patient is feeling much better after treatment here in the emergency department with Valium and ketamine. She states she is ready to go home. We discussed indications for returning. Differential Diagnosis: Partial list of the Differential diagnosis considered include but were not limited to; opiate dependency, chronic abdominal pain, arthritis and although unlikely based on the history and physical exam, I also considered infection, obstruction, ischemia, volvulus. I discussed these differential diagnoses and the plan with the patient as well as the usual and expected course. The patient understands that the diagnosis is provisional and that in medicine we are not always correct and that further workup is often warranted. Usual and customary warnings were given. All of the patient's questions were answered. The patient was instructed to return to the emergency department should the symptoms at all worsen or return, otherwise to followup with the physician as we discussed. - Data Points Medications Given: Discontinued Medications Diazepam (Valium Injection) 5 mg IVP EDNOW ONE Stop: 04/01/17 18:04 Last Admin: 04/01/17 18:23 Dose: 5 mg Sodium Chloride (Ns) 1,000 mls @ 0 mls/hr IV ONCE ONE PRN Reason: Wide Open Stop: 04/01/17 18:04 Last Admin: 04/01/17 18:24 Dose: 1,000 mls Ketamine HCl (Ketamine) 10 mg IVP EDNOW ONE Stop: 04/01/17 18:04 Last Admin: 04/01/17 18:24 Dose: 10 mg Ondansetron HCl (Zofran) 4 mg IVP EDNOW ONE Stop: 04/01/17 18:04 Last Admin: 04/01/17 18:24 Dose: 4 mg Departure - Departure Disposition: Home, Routine, Self-Care Clinical Impression: Chronic generalized abdominal pain, Arthritis Opiate dependence Qualifiers: Substance use status: uncomplicated Qualified Code(s): F11.20 - Opioid dependence, uncomplicated Condition: Fair Instructions: Narcotic Abuse (ED), Arthritis (ED), Chronic Abdominal Pain (ED) Referrals: [facility] [Other] - As per Instructions
[2017-04-01 19:14] VITALS: BP 131/73; PULSE 80; RESP 16; O2SAT 97
== END 2017-04-01 19:14 | disposition home or self-care (01) ==
DX: R10.84 Generalized abdominal pain (principal); G89.29 Other chronic pain; M19.90 Unspecified osteoarthritis, unspecified site; F11.20 Opioid dependence, uncomplicated; J45.909 Unspecified asthma, uncomplicated; F17.200 Nicotine dependence, unspecified, uncomplicated; Z90.49 Acquired absence of other specified parts of digestive tract
CPT/HCPCS: 96361; 96374; 96375; 99284; J2405

== ENCOUNTER → 2017-06-27 | Outpatient (CLI) | payer OTHER, MEDICARE | LOC: FIMAGING 17:39 | PROVIDERS: ATTEND Internal Medicine Gastroenterology | DX: K94.13 Enterostomy malfunction (principal) ==

== ENCOUNTER 2017-07-03 08:03 | Inpatient (IN) | payer OTHER, MEDICARE ==
--- NOTE | 2017-07-03 09:01 | EDPHY ---
H & P Stated Complaint: chronic abd pain/surg scheduled for surg friday/in [facility] in may Time Seen by Provider: 07/03/17 08:57 HPI/ROS: CHIEF COMPLAINT: Worsening chronic abdominal pain HISTORY OF PRESENT ILLNESS: The patient presents to the ED with acutely worsening chronic abdominal pain. The patient unfortunately has been struggling with this condition for months. She does have a history of ulcerative colitis status post colostomy. The patient recently underwent an upper GI series which did demonstrate evidence of a stricture at the terminal ileum. The patient has been evaluated in consultation by Dr. Jacinda Montgomery who had planned on performing surgery next week. The patient states that her pain is unmanageable. The patient reports she has symptoms of bloating, erratic output from her ostomy and unmanaged nausea. The patient denies fever, cough or congestion. She has no complaints of acute dysuria. The patient reports her symptoms are moderate to severe in nature. REVIEW OF SYSTEMS: A comprehensive 10 point review of systems is otherwise negative aside from elements mentioned in the history of present illness. Source: Patient - Personal History Current Tetanus/Diphtheria Vaccine: Unsure - Medical/Surgical History Hx Asthma: Yes Hx Chronic Respiratory Disease: No Hx Diabetes: No Hx Cardiac Disease: No Hx Renal Disease: No Hx Cirrhosis: No Hx Alcoholism: No Hx HIV/AIDS: No Hx Splenectomy or Spleen Trauma: No Other PMH: PMH: asthma, ulcerative colitis, arthritis, chronic neck and back pain, pneumonia, depression, chronic pain with opioid dependence. PSH: Total colectomy with ostomy, 3 sx related to bowel obstructions in the past, HERNIA REPAIR - Social History Smoking Status: Heavy smoker - Physical Exam Exam: General Appearance: Thin female, cachectic, no acute distress Eyes: Pupils equal and round no pallor or injection ENT, Mouth: Mucous membranes moist Respiratory: There are no retractions, lungs are clear to auscultation Cardiovascular: Regular rate and rhythm Gastrointestinal: Ostomy site clean dry and intact, generalized mild abdominal tenderness Neurological: A&O, normal motor function, normal sensory exam, normal cranial nerves Skin: Warm and dry, no rashes Musculoskeletal: Neck is supple nontender Extremities: symmetrical, full range of motion Constitutional: Initial Vital Signs Temperature (C) 36.4 C 07/03/17 08:08 Heart Rate 75 07/03/17 08:08 Respiratory Rate 18 07/03/17 08:08 Blood Pressure 98/82 H 07/03/17 08:08 O2 Sat (%) 93 07/03/17 08:08 O2 Delivery Mode Room Air Allergies/Adverse Reactions: amoxicillin Allergy (Verified 07/03/17 08:04) budesonide Allergy (Verified 07/03/17 08:04) cefuroxime Allergy (Verified 07/03/17 08:04) ciprofloxacin Allergy (Verified 07/03/17 08:04) clarithromycin Allergy (Verified 07/03/17 08:04) clavulanic acid Allergy (Verified 07/03/17 08:04) codeine Allergy (Verified 07/03/17 08:04) dicyclomine Allergy (Verified 07/03/17 08:04) Unknown doxycycline Allergy (Verified 07/03/17 08:04) duloxetine HCl [From Cymbalta] Allergy (Verified 07/03/17 08:04) fluconazole Allergy (Verified 07/03/17 08:04) gabapentin Allergy (Verified 07/03/17 08:04) hydrocodone Allergy (Verified 07/03/17 08:04) metronidazole Allergy (Verified 07/03/17 08:04) prednisone Allergy (Verified 07/03/17 08:04) rabeprazole Allergy (Verified 07/03/17 08:04) ranitidine Allergy (Verified 07/03/17 08:04) Home Medications: Medication Instructions Recorded Herbals/Supplements -Info Only 1 ea PO DAILY 08/10/15 Ondansetron Odt [Zofran Odt 4 mg 4 mg PO Q6 PRN 08/10/15 (*)] Albuterol [Proventil Inhaler HFA 2 puffs IH DAILY PRN 08/13/15 (*)] Cholecalciferol Vit D3 [Vitamin D3 1,000 units PO DAILY 05/25/16 (*)] Melatonin [Melatonin 3 MG (*)] 3 mg PO HS 09/14/16 oxyCODONE IR [Oxycodone Ir (*)] 5 mg PO Q4H PRN 09/14/16 Diazepam [Valium 5 MG (*)] 2.5 - 5 mg PO TID PRN MDD 15mg 11/13/16 oxyCODONE HCL/ACETAMINOPHEN 1 each PO Q4HRS PRN MDD 5 tabs 11/13/16 [Percocet 10-325 mg Tablet] Nystatin 5 ml PO DAILY 07/03/17 Medical Decision Making ED Course/Re-evaluation: I reviewed the patient's past medical records. I consulted with Dr. Jacinda Montgomery from General surgery who recommends admission to the hospital. The patient does have a stricture in her terminal ileum which is likely the etiology of her symptoms. The patient will require surgical repair of this condition. Additional database in the emergency department included an unremarkable CBC and basic metabolic panel. The patient did receive 1 L of IV fluid for dehydration. The patient will be admitted to the medical-surgical floor under the care of Dr. Montgomery. Differential Diagnosis: Differential diagnosis considered includes perforation, obstruction, dehydration , renal failure, metabolic abnormality, peritonitis - Data Points Medications Given: Potassium Chloride/Dextrose/Sod Cl (D5w 1/2 Ns W/ 20 Kcl/L) 1,000 mls @ 75 mls/ hr IV CONT NANDINI Stop: 12/30/17 10:29 Last Admin: 07/03/17 13:31 Dose: 1,000 mls Morphine Sulfate (Morphine) 2 mg IVP Q1HR PRN PRN Reason: Pain, Severe Unable to Take PO Stop: 07/13/17 10:25 Last Admin: 07/03/17 15:07 Dose: 2 mg Discontinued Medications Sodium Chloride (Ns) 1,000 mls @ 0 mls/hr IV EDNOW ONE; Wide Open PRN Reason: Protocol Stop: 07/03/17 09:09 Last Admin: 07/03/17 10:07 Dose: 1,000 mls Lactated Ringer's (Lr) 1,000 mls @ 0 mls/hr IV ONCE ONE PRN Reason: KVO Stop: 07/03/17 16:31 Last Admin: 07/03/17 16:36 Dose: 1,000 mls Departure - Departure Disposition: [facility] Inpatient Acute Clinical Impression: Chronic abdominal pain, Stricture of small intestine Condition: Fair
[2017-07-03] MEDS ORDERED: NS 1,000 ML IV ONE (09:08)
[2017-07-03 10:11] LABS: % IMMATURE GRANULYOCYTES 0.2 % (0.0-1.1); ABSOLUTE IMMATURE GRANULOCYTES 0.01 10^3/uL (0.00-0.10); ADD DIFF? NO; ADD MORPH? NO; ADD SCAN? NO; ATYPICAL LYMPHOCYTE FLAG 10 (0-99); FRAGMENT RBC FLAG 0 (0-99); HEMATOCRIT 36.5 % (38.0-47.0); HEMOGLOBIN 12.1 g/dL (12.6-16.3); LEFT SHIFT FLG 0 (0-99); LIPEMIA HEMOLYSIS FLAG 80 (0-99); MEAN CELL HEMOGLOBIN 29.8 pg (27.9-34.1); MEAN CELL HEMOGLOBIN CONCENTR. 33.2 g/dL (32.4-36.7); MEAN CELL VOLUME 89.9 fL (81.5-99.8); MEAN PLATELET VOLUME 9.4 fL (8.7-11.7); PLATELET CLUMPS FLAG 10 (0-99); PLATELET COUNT 257 10^3/uL (150-400); RED BLOOD CELL COUNT 4.06 10^6/uL (4.18-5.33); RED CELL DISTRIBUTION WIDTH 12.8 % (11.5-15.2)
[2017-07-03 10:29] LABS: ANION GAP 10 mEq/L (8-16); CALCIUM 9.2 mg/dL (8.5-10.4); CARBON DIOXIDE 31 mEq/l (22-31); CHLORIDE 93 mEq/L (97-110); CREATININE 0.5 mg/dL (0.6-1.0); GLOMERULAR FILTRATION RATE > 60; GLUCOSE 80 mg/dL (70-100); POTASSIUM 4.1 mEq/L (3.5-5.2); SODIUM 134 mEq/L (134-144)
--- NOTE | 2017-07-03 12:02 | GCON ---
[f rep st] CONSULTATION REQUESTING PHYSICIANS: Dr. Candy Montgomery. REASON FOR CONSULTATION: Abdominal pain. Briefly, Ms. Christine is a complicated 72-year-old female with a past medical history for ulcerative c olitis. She is status post partial colectomy with ileoanal pull-through. She had multiple pouch is sues after that surgery and ultimately has undergone a total colectomy with ileostomy placement. Fani nolasco has recurring abdominal pain symptoms that are likely multifactorial. In the setting of her compl ex recurring pain history, she appears to be having some recurrence of poor function, or possibly pa rtial obstruction, of her ileostomy. She has had multiple emergency room visits and hospital stays and on more than one occasion may have had imaging evidence consistent with obstruction. She presen [place] to the emergency room today with worsening abdominal pain. This worsening abdominal pain has oc curred, however, in the setting of what appears to be stable ostomy function over the last several d ays. She was recently admitted to [facility]. At that time, x-rays revealed partial obstruction. Catheter placement into the ostomy led to resolution of abdominal pain symptoms. Last week she underwent radiographic evaluation of the distal small bowel, and it was felt that she had an approximately 1 or 2 cm long terminal ileal stricture. In the setting of recurring abdominal sym ptoms, possible recurring partial obstruction at the ileostomy site, surgical revision has been cons idered. Prior to surgical revision, however, it has been requested by Dr. Montgomery to perform ileoscopy in [facility] to confirm the presence or absence of terminal ileal stricturing. ALLERGIES: To amoxicillin, budesonide, cefuroxime, ciprofloxacin, clarithromycin, clavulanic acid, codeine, dicyclomine, doxycycline, duloxetine, fluconazole, gabapentin, hydrocodone, metronidazole, prednisone, rabeprazole and ranitidine. CURRENT ACTIVE MEDICINES: 1. Morphine. 2. Zofran. 3. Potassium. PAST MEDICAL HISTORY: Includes ulcerative colitis, constipation and outlet dysfunction, abdominal p ain, history of C diff diarrhea, history of generalized abdominal pain, history of arthritis, histor y of H pylori infection, history of opiate dependence. FAMILY HISTORY: Negative for inflammatory bowel disease. SOCIAL HISTORY: She is a smoker. Does not use drugs. Takes THC tincture occasionally. Occasional ly smokes marijuana. OUTPATIENT MEDICINES: Included: 1. Tylenol. 2. Albuterol. 3. Multivitamins. 4. Valium. 5. Zofran. 6. Oxycodone. 7. Percocet. REVIEW OF SYSTEMS: A complete 10-point review of systems was undertaken with the patient. The pert inent positives and negatives are detailed in history of present illness. PHYSICAL EXAM: GENERAL: This is a thin elderly female, in no apparent distress. She appears chron ically ill. Her oropharynx is clear. NECK: Supple. She has no lymphadenopathy. HEART: Regular without murmur. ABDOMEN: Soft, nontender, with normoactive bowel sounds. She has a right lower qu adrant ileostomy that appears to be in good condition. There is both gas and stool in her ostomy ba g. EXTREMITIES: Free of cyanosis, clubbing, edema. NEURO: Grossly nonfocal. SKIN: Without lesi ons or jaundice. NEUROLOGIC: Grossly nonfocal. PSYCH: Reveals somewhat flat and depressed affect . LABORATORY: Shows a white count of 4.18, hemoglobin of 12.1 and hematocrit of 36.5, platelet count of 257. Chemistry shows sodium of 134, potassium of 4.1, chloride of 93, bicarb of 31, creatinine o f 0.5, BUN of 16. On 06/27/2017 she underwent fluoroscopy which showed appearance of a benign ileal stricture approximately 17 mm in length, several centimeters deep to the ostomy orifice. IMPRESSION AND RECOMMENDATIONS: Ms. Christine is admitted to the hospital today with abdominal pain. She has recurring functional/multifactorial abdominal pain syndrome. Coincident with this backgroun d of intermittent, and sometimes severe, abdominal pain, she may be having some intermittent obstruc tive symptoms related to her ileostomy. Recent admission to the hospital and fluoroscopy is concern ing for possible terminal ileal stricture. As such, consideration has been given for surgical ostom y revision. In order to help decision making related to surgical therapy of ostomy, I recommend the patient unde rgo ileoscopy today. If stricturing is confirmed, the patient is likely to receive some benefit fro m ostomy revision. If stricturing is not described, patient may not benefit from ileostomy revision . Given her chronic narcotic therapies, debilitated status, and increased anxiety, we will plan her ileoscopy procedure to occur with general anesthesia. /[id number]/MODL
[2017-07-03] MEDS ORDERED: ALBUTEROL 60 PUFFS/8 GM MDI IH PRN (12:50)
[2017-07-03] MEDS ORDERED: NON-FORMULARY NEW DRUG (Oxycodone Hcl/Acetaminophen [Percocet 10-325 Mg Tablet] 1 EACH) PO PRN (12:50)
[2017-07-03] MEDS ORDERED: oxyCODONE IR 5 MG TAB PO PRN (13:04)
[2017-07-03] MEDS ORDERED: ALBUTEROL 200 PUFFS/18 GM MDI IH PRN (13:09)
[2017-07-03] MEDS: D5W 1/2 NS W/ 20 KCl/L 1,000 ML IV SCH ×2 (13:31→20:59)
[2017-07-03] MEDS ORDERED: BUPIVACAINE 0.5% 30 ML SDV ONE (15:27)
[2017-07-03] MEDS ORDERED: BACITRACIN ZINC 14.2 GM OINTTUBE TP ONE (15:30)
[2017-07-03] MEDS ORDERED: ERTAPENEM 1 GM in NS 100 ML IV ONE (16:00)
[2017-07-03] MEDS ORDERED: NYSTATIN SUSP 500000 UNIT/5 ML UDCUP PO ONE (16:00)
[2017-07-03] MEDS ORDERED: fentaNYL 100 MCG/2 ML INJ ONE ×2 (16:22→19:35)
[2017-07-03] MEDS ORDERED: PROPOFOL/EMULSION 500 MG/50 ML BOTTLE IV ONE (16:22)
[2017-07-03] MEDS ORDERED: LIDOCAINE 2% 100 MG/5 ML SYR ONE (16:23)
[2017-07-03] MEDS ORDERED: LR 1,000 ML IV ONE (16:30)
--- NOTE | 2017-07-03 16:32 | PDANEPAE ---
ANE Past Medical History - Cardiovascular History Hx Hypertension: No Hx Arrhythmias: No Hx Chest Pain: No Hx Coronary Artery / Peripheral Vascular Disease: No Hx CHF / Valvular Disease: No Hx Palpitations: No - Pulmonary History Hx COPD: Yes Hx Asthma/Reactive Airway Disease: Yes Hx Recent Upper Respiratory Infection: No Hx Oxygen in Use at Home: Yes O2 in Use at Home (L/minute): 3 Hx Sleep Apnea: No Sleep Apnea Screening Result - Last Documented: Negative Pulmonary History Comment: ASTHMA - Neurologic History Hx Cerebrovascular Accident: No Hx Seizures: No Hx Dementia: No - Endocrine History Hx Diabetes: No - Renal History Hx Renal Disorders: No - Liver History Hx Hepatic Disorders: No Hepatic History Comment: hep a age 15 - Neurological & Psychiatric Hx Hx Neurological and Psychiatric Disorders: Yes Neurological / Psychiatric History Comment: depression, anxiety, stress - Cancer History Hx Cancer: No - Congenital Disorder History Hx Congenital Disorders: No - GI History Hx Gastrointestinal Disorders: Yes Gastrointestinal History Comment: ulcerative colitis- rem large intestine 10 y ago. ventral hernia. diarrhea, leakage of stool occ, constipation occ, abd pain. hx esophagitis. nausea. poor appetite - Other Health History Other Health History: na - Chronic Pain History Chronic Pain: Yes - Surgical History Prior Surgeries: SIGMOIDOSCOPY WITH GATOF 06/26/16. FLEX SIG, DIL STRICTURE . COLON SURG FOR ULCERATIVE COLITIS- REM LARGE INTESTINE 10 Y AGO. CERVICAL FUSION C5-7. CINDY. OVARY REM. EYE CATARCTS TIMOTHY ANE Patient History - Allergies Allergies/Adverse Reactions: amoxicillin Allergy (Verified 07/03/17 08:04) budesonide Allergy (Verified 07/03/17 08:04) cefuroxime Allergy (Verified 07/03/17 08:04) ciprofloxacin Allergy (Verified 07/03/17 08:04) clarithromycin Allergy (Verified 07/03/17 08:04) clavulanic acid Allergy (Verified 07/03/17 08:04) codeine Allergy (Verified 07/03/17 08:04) dicyclomine Allergy (Verified 07/03/17 08:04) Unknown doxycycline Allergy (Verified 07/03/17 08:04) duloxetine HCl [From Cymbalta] Allergy (Verified 07/03/17 08:04) fluconazole Allergy (Verified 07/03/17 08:04) gabapentin Allergy (Verified 07/03/17 08:04) hydrocodone Allergy (Verified 07/03/17 08:04) metronidazole Allergy (Verified 07/03/17 08:04) prednisone Allergy (Verified 07/03/17 08:04) rabeprazole Allergy (Verified 07/03/17 08:04) ranitidine Allergy (Verified 07/03/17 08:04) - Home Medications Home Medications: Herbals/Supplements -Info Only 1 ea PO DAILY 08/10/15 [Last Taken 07/22/16] Ondansetron Odt [Zofran Odt 4 mg (*)] 4 mg PO Q6 PRN 08/10/15 [Last Taken ] Albuterol [Proventil Inhaler HFA (*)] 2 puffs IH DAILY PRN 08/13/15 [Last Taken 02/27/17] Cholecalciferol Vit D3 [Vitamin D3 (*)] 1,000 units PO DAILY 05/25/16 [Last Taken 02/27/17] Melatonin [Melatonin 3 MG (*)] 3 mg PO HS 09/14/16 [Last Taken 07/02/17] oxyCODONE IR [Oxycodone Ir (*)] 5 mg PO Q4H PRN 09/14/16 [Last Taken 07/02/17] Diazepam [Valium 5 MG (*)] 2.5 - 5 mg PO TID PRN MDD 15mg 11/13/16 [Last Taken 07/03/17] oxyCODONE HCL/ACETAMINOPHEN [Percocet 10-325 mg Tablet] 1 each PO Q4HRS PRN MDD 5 tabs 11/13/16 [Last Taken 07/03/17 07:00] Nystatin 5 ml PO DAILY 07/03/17 [Last Taken Unknown] - NPO status NPO Since - Liquids (Date): 07/03/17 NPO Since - Liquids (Time): 08:00 NPO Since - Solids (Date): 07/03/17 NPO Since - Solids (Time): 08:00 - Smoking Hx Smoking Status: Heavy smoker - Family Anes Hx Family Hx Anesthesia Complications: NONE ANE Labs/Vital Signs - Labs Result Diagrams: 07/03/17 10:00 07/03/17 10:00 - Vital Signs Blood Pressure: 131/75 Heart Rate: 71 Respiratory Rate: 16 O2 Sat (%): 97 Height: 160.02 cm Weight: 39.78 kg ANE Physical Exam - Airway Mallampati Score: Class 2 Mouth exam: normal dental/mouth exam - Pulmonary Pulmonary: no respiratory distress - Cardiovascular Cardiovascular: regular rate and rhythym - ASA Status ASA Status: II, E ANE Anesthesia Plan Anesthesia Plan: general endotracheal anesthesia, MAC
--- NOTE | 2017-07-03 17:37 | SUROPNOTE ---
WIN Operative Report - Surgery ILEOSCOPY Indication: intermittent ileoscopy obstruction Meds: per anesthesia Complications: none acutely Findings: - palpable extra-luminal lesion in LLQ - normal appearing, although somewhat dilated, ileum - scope advanced to 60cm without difficulty - no focal stenosis - minimally tortuous distal ileum - ostomy prolapse of ~5cm, easily reducible
[2017-07-03] MEDS ORDERED: NALOXONE HCL 0.4 MG/ML INJ IVP PRN (18:17)
[2017-07-03] MEDS ORDERED: ONDANSETRON 4 MG/2 ML VIAL IVP PRN (18:17)
--- NOTE | 2017-07-03 18:18 | POSTANESTH ---
Post Anesthetic Evaluation Respiratory Status: Normal, Stable Level of Consciousness/Mental Status: Mildly Sleepy, Arousable Pain Control: Adequate, Prn Tx Ordered Nausea/Vomiting Control: Adequate, Prn Tx Ordered Complications Possibly Related to Anesthesia: None Noted
[2017-07-03] MEDS ORDERED: ONDANSETRON 4 MG/2 ML VIAL ONE (18:39)
--- NOTE | 2017-07-03 18:59 | POSTOPPROG ---
Post Op Note Date of Operation: 07/03/17 Surgeon: Jacinda Montgomery Anesthesiologist: Shira Anesthesia: GET(General Endotracheal) Pre-op Diagnosis: Ileostomy dysfunction Post-op Diagnosis: adhesions Indication: 72 yo with chronic abdominal pain. GI study with stricture. Mass palpated Procedure: ex lap with 1 hour adhesiolysis Findings: inferior pole of kidney touching ileostomy. Some adhesions but no transiti Inf/Abcess present in the surg proc area at time of surgery?: No EBL: Minimal Specimen(s): none
--- NOTE | 2017-07-03 19:35 | GHP ---
[f rep st] HISTORY AND PHYSICAL DATE OF ADMISSION: 07/03/2017 CHIEF COMPLAINT: Abdominal pain. HISTORY OF PRESENT ILLNESS: The patient is a 72-year-old woman well known to me who has a history o f ulcerative colitis. She is status post subtotal colectomy with an ileal pouch anal anastomosis pe rformed in 2004. I then took her to the operating room in 2015 and gave her an end ileostomy. She still has difficulty eating and abdominal pain. She has been admitted to [place] twice in the past 2 months for concern of bowel obstruction. She had a GI study performed through the ileostomy whic h showed a possible stricture just distal to the ileostomy. I have admitted her for abdominal pain and to do a completion workup for the possible ileal stricture. She reports that she is having difficulty eating anything. She sometimes does not have any output f or 12 hours and then will have a lot of output with gas. Her life is miserable. PAST MEDICAL HISTORY: 1. Ulcerative colitis status post subtotal colectomy with ileal pouch and subsequent end ileostomy. 2. Hypoxic respiratory failure on 3 L oxygen at night. 3. COPD. 4. Chronic pain. 5. Anxiety. 6. Asthma. PAST SURGICAL HISTORY: 1. Subtotal colectomy with ileal pouch anal anastomosis. 2. Lysis of adhesions for obstructive symptoms x3 February 2009, September 2009, March 2010. 3. Cholecystectomy. 4. Multiple eye surgeries. 5. Level 5, 6, 7 cervical neck fusion. 6. Ventral hernia repair, July 2015. 7. End ileostomy in 2016. MEDICATIONS: Please see reconciliation. ALLERGIES: Please see chart. SOCIAL HISTORY: She is with 3 children. She smokes cigarettes and uses medical marijuana. FAMILY HISTORY: Significant for hyperlipidemia, heart disease, diabetes. REVIEW OF SYSTEMS: 10-point review of systems negative except per HPI. PHYSICAL EXAM: GENERAL: Pleasant, thin woman. Cachetic. Appears chronically malnourished at visi t with . HEENT: Normocephalic. No gross hearing deficits. Mucous membranes moist. Pupils equal and round. No scleral icterus. LUNGS: Clear to auscultation bilaterally. No increased wor k of breathing. CARDIAC: Regular rate. Normal S1, S2. No peripheral edema. ABDOMEN: Scaphoid w ith multiple incisions. Ostomy is in right upper quadrant with gas and stool in bag. MUSCULOSKELET AL: Normal nails. SKIN: Warm and dry. NEURO: Grossly intact. PSYCH: Somewhat unrealistic. IMPRESSION AND PLAN: The patient is a 72-year-old with multiple medical problems, who has a possibl e stricture. I have asked GI to perform a scope prior to surgery. In the event that there is absol utely no stricture, then I would not proceed with the OR in her. In the event that we need to go th e OR, I have considered for exploratory laparotomy with possible small-bowel resection, possible rev ision of ostomy. Risks and benefits including, but not limited to, stroke, heart attack, , blo od clots, infection, bleeding, damage to surrounding structures, were discussed. She had her questi ons answered to her satisfaction and signed the consent. /[id number]/MODL
[2017-07-03] MEDS: fentaNYL 100 MCG/2 ML INJ IVP PRN ×2 (19:39→19:48)
[2017-07-03] MEDS: OXYCODONE/APAP 5/325 TAB PO PRN (21:02)
--- NOTE | 2017-07-03 21:10 | GOP ---
[f rep st] OPERATIVE REPORT DATE OF OPERATION: 07/03/2017 SURGEON: Jacinda Montgomery MD ANESTHESIOLOGIST: Harsha Silva MD. PREOPERATIVE DIAGNOSIS: Possible external compression of ileostomy/ileostomy stricture. POSTOPERATIVE DIAGNOSIS: Adhesions. PROCEDURE PERFORMED: Exploratory laparotomy with 1 hour of adhesiolysis. FINDINGS: Inferior pole of kidney is very near to the ileostomy. No obvious strictures. Her proximal bowel was a bit more decompressed than the distal bowel. She has no midline adhesions but she does have some interloop adhesions. SPECIMENS: None. INDICATIONS: The patient is a 72-year-old woman with history of subtotal colectomy and end ileostomy with multiple other abdominal surgeries. She was having more abdominal pain and difficulty eating. Her barium study through her ileostomy showed possible stricture. She had a scope performed that showed a sharp angle below the fascia but no obvious caliber change. When I palpated through the ostomy I could feel a possible external mass compressing the ileum. DESCRIPTION OF PROCEDURE: The patient was brought in the operating room, placed supine on the table, and general anesthesia was administered. Her abdomen was prepped and draped in the usual sterile fashion. I infiltrated the area with 0.5% Marcaine. I made an incision above her previous incision, dissected down through the subcutaneous tissue until I encountered the fascia. I divided the fascia and entered the peritoneal cavity sharply. She had no midline adhesions. I extended the incision further. I placed an Jt wound protector. I was able to identify the ileostomy and the mass near her ileostomy was the right inferior pole of the kidney. Attention was drawn to the bowel. She had some decompressed small bowel that was very easy to run. She also had a lot of other bowel that was of slightly larger caliber with a lot of interloop adhesions without any obvious transition point. The bowel had areas where it waxed and waned in size without an obvious area of obstruction. None of the bowel was very dilated. I spent 60 minutes performing adhesiolysis due to extensive intraloop adhesions which made this procedure approximately 50 % longer than the average duration for this type of procedure. All the bowel was returned to the abdominal cavity. Fascia closed with 0 PDS. Skin closed with heather. Dressing applied. Ostomy appliance replaced. She was awakened in the operating room, extubated, transferred to PACU in stable condition. /[id number]/MODL MTDD
[2017-07-03] MEDS: MELATONIN 3 MG TAB PO SCH (21:49)
[2017-07-04] MEDS: HYDROmorphONE/DILAUDID 1 MG/ML SYR IVP PRN ×5 (00:55→20:03)
[2017-07-04] MEDS: DIAZEPAM 5 MG TAB PO PRN ×4 (01:00→20:03)
[2017-07-04] MEDS: oxyCODONE IR 5 MG TAB PO PRN ×2 (02:36→07:50)
[2017-07-04] MEDS: OXYCODONE/APAP 5/325 TAB PO PRN ×4 (02:36→20:48)
[2017-07-04] MEDS: CHOLECALCIFEROL VIT D3 1,000 UNITS TAB PO SCH ×2 (07:49→17:03)
[2017-07-04] MEDS: D5W 1/2 NS W/ 20 KCl/L 1,000 ML IV SCH (07:49)
[2017-07-04] MEDS: ALBUTEROL HFA ANES ONLY 200 PUFFS/8.5 GM MDI IH PRN ×2 (07:54→21:55)
[2017-07-04] MEDS ORDERED: NYSTATIN SUSP 500000 UNIT/5 ML UDCUP PO SCH (09:00)
--- NOTE | 2017-07-04 13:02 | SOAPPROG ---
SOAP Progress Note Assessment/Plan: Assessment: POD # 1 s/p laparotomy and lysis of adhesions for intermittent small bowel obstruction Pain last night Slept well this am Advance diet as tolerated Ambulate S: Pain last night O: Dressing with staining. Stool in ostomy appliance Abdomen scaphoid and appropriately tender Plan: 07/04/17 13:01 Objective: Vital Signs Temp Pulse Resp BP Pulse Ox 36.6 C 68 18 107/58 L 92 07/04/17 11:18 07/04/17 11:18 07/04/17 11:18 07/04/17 11:18 07/04/17 11:18 Laboratory Results 07/03/17 10:00 07/03/17 10:00 07/03/17 07/04/17 07/05/17 05:59 05:59 05:59 Intake Total 1244 Output Total 430 Balance 814 ICD10 Worksheet Patient Problems: Problems Problem Status Onset Chronic abdominal pain Acute Stricture of small intestine Acute Abdominal pain Acute Abdominal pain, generalized Acute C. difficile diarrhea Acute 05/25/16 Chronic Disease Mgmt/Transitional Care Acute Chronic abdominal pain Acute Colonic stricture Acute Constipation by outlet dysfunction Acute Diarrhea in adult patient Acute Failure to thrive in adult Acute Gastroenteritis Acute Generalized pain Acute Hypoxemia Acute Intractable abdominal pain Acute Ulcerative colitis Acute
[2017-07-04] MEDS: ONDANSETRON DISINTEGRATING 4 MG TAB PO PRN (15:24)
[2017-07-04] MEDS ORDERED: ALBUTEROL 3 ML DEYVIAL IH PRN (16:36)
[2017-07-04] MEDS ORDERED: ALBUTEROL 3 ML DEYVIAL ONE (16:36)
[2017-07-04] MEDS: NYSTATIN SUSP 500000 UNIT/5 ML UDCUP PO SCH ×2 (17:48→21:56)
[2017-07-04] MEDS: LORazepam 0.5 MG TAB PO PRN (19:43)
[2017-07-04] MEDS: MELATONIN 3 MG TAB PO SCH (21:54)
[2017-07-05] MEDS: OXYCODONE/APAP 5/325 TAB PO PRN ×4 (00:49→17:37)
[2017-07-05] MEDS: ONDANSETRON 4 MG/2 ML VIAL IVP PRN (00:52)
[2017-07-05] MEDS: DIAZEPAM 5 MG TAB PO PRN ×3 (03:12→17:40)
[2017-07-05] MEDS: NYSTATIN SUSP 500000 UNIT/5 ML UDCUP PO SCH ×4 (05:22→21:32)
[2017-07-05] MEDS: ALBUTEROL HFA ANES ONLY 200 PUFFS/8.5 GM MDI IH PRN ×2 (05:24→21:35)
[2017-07-05] MEDS: HYDROmorphONE/DILAUDID 1 MG/ML SYR IVP PRN ×3 (07:42→21:18)
[2017-07-05] MEDS: CHOLECALCIFEROL VIT D3 1,000 UNITS TAB PO SCH (07:43)
[2017-07-05] MEDS: ONDANSETRON DISINTEGRATING 4 MG TAB PO PRN ×2 (10:30→19:53)
[2017-07-05] MEDS: LORazepam 0.5 MG TAB PO PRN ×3 (10:53→22:04)
[2017-07-05] MEDS ORDERED: DIAZEPAM 5 MG TAB PO ONE (11:15)
--- NOTE | 2017-07-05 16:14 | SOAPPROG ---
SOAP Progress Note Assessment/Plan: Assessment: POD # 2 s/p laparotomy and lysis of adhesions for intermittent small bowel obstruction Pain continues Advance diet as tolerated Ambulate S: Anxiety this am but improved after valium O: Dressing with staining. Stool in ostomy appliance Abdomen scaphoid and appropriately tender Plan: 17 13:01 07/05/17 16:12 Objective: Vital Signs Temp Pulse Resp BP Pulse Ox 36.3 C 78 1 L 121/65 H 20 L 07/05/17 15:31 07/05/17 15:31 07/05/17 15:31 07/05/17 15:31 07/05/17 15:31 Laboratory Results 07/03/17 10:00 07/03/17 10:00 07/04/17 07/05/17 07/06/17 05:59 05:59 05:59 Intake Total 1244 1589 Output Total 430 6287 548 Balance 814 -61 -090 ICD10 Worksheet Patient Problems: Problems Problem Status Onset Chronic abdominal pain Acute Stricture of small intestine Acute Abdominal pain Acute Abdominal pain, generalized Acute C. difficile diarrhea Acute 05/25/16 Chronic Disease Mgmt/Transitional Care Acute Chronic abdominal pain Acute Colonic stricture Acute Constipation by outlet dysfunction Acute Diarrhea in adult patient Acute Failure to thrive in adult Acute Gastroenteritis Acute Generalized pain Acute Hypoxemia Acute Intractable abdominal pain Acute Ulcerative colitis Acute
[2017-07-05] MEDS: MELATONIN 3 MG TAB PO SCH (21:32)
[2017-07-05] MEDS ORDERED: HYDROmorphONE/DILAUDID 1 MG/ML SYR IVP ONE (22:03)
[2017-07-06] MEDS: DIAZEPAM 5 MG TAB PO PRN ×3 (00:03→18:14)
[2017-07-06] MEDS: OXYCODONE/APAP 5/325 TAB PO PRN ×5 (00:03→23:48)
[2017-07-06] MEDS: LORazepam 0.5 MG TAB PO PRN ×3 (04:51→21:56)
[2017-07-06] MEDS: NYSTATIN SUSP 500000 UNIT/5 ML UDCUP PO SCH ×4 (04:51→19:26)
[2017-07-06] MEDS: CHOLECALCIFEROL VIT D3 1,000 UNITS TAB PO SCH ×2 (08:33→09:12)
[2017-07-06] MEDS: ONDANSETRON 4 MG/2 ML VIAL IVP PRN (09:55)
--- NOTE | 2017-07-06 10:37 | SOAPPROG ---
SOAP Progress Note Assessment/Plan: Assessment: POD # 3 s/p laparotomy and lysis of adhesions for intermittent small bowel obstruction Pain continues Regular diet Still having difficulty with pain control - mainly back pain due to arthritis - unable to supply cannabis cream Offered lidocaine patch which was declined Added toradol Ambulate S: Did not sleep well. Ambulated to hallway yesterday O: Incision cdi. Stool in ostomy appliance Abdomen scaphoid and appropriately tender BS present Lungs clear Heart regular Plan: 07/04/17 13:01 07/05/17 16:12 07/06/17 10:36 Objective: Vital Signs Temp Pulse Resp BP Pulse Ox 36.4 C 74 24 H 152/80 H 90 L 07/06/17 07:32 07/06/17 07:32 07/06/17 07:32 07/06/17 07:32 07/06/17 07:32 Laboratory Results 07/03/17 10:00 07/03/17 10:00 07/05/17 07/06/17 07/07/17 05:59 05:59 05:59 Intake Total 1589 2290 Output Total 1650 2993 600 Balance -61 -460 -600 ICD10 Worksheet Patient Problems: Problems Problem Status Onset Chronic abdominal pain Acute Stricture of small intestine Acute Abdominal pain Acute Abdominal pain, generalized Acute C. difficile diarrhea Acute 05/25/16 Chronic Disease Mgmt/Transitional Care Acute Chronic abdominal pain Acute Colonic stricture Acute Constipation by outlet dysfunction Acute Diarrhea in adult patient Acute Failure to thrive in adult Acute Gastroenteritis Acute Generalized pain Acute Hypoxemia Acute Intractable abdominal pain Acute Ulcerative colitis Acute
[2017-07-06] MEDS: KETOROLAC 15 MG/1 ML SDV IVP SCH ×3 (12:38→23:07)
[2017-07-06] MEDS: D5W 1/2 NS W/ 20 KCl/L 1,000 ML IV SCH (17:17)
[2017-07-06] MEDS: MELATONIN 3 MG TAB PO SCH (19:26)
[2017-07-06] MEDS: ONDANSETRON DISINTEGRATING 4 MG TAB PO PRN (23:48)
[2017-07-07] MEDS: DIAZEPAM 5 MG TAB PO PRN ×3 (00:59→20:09)
[2017-07-07] MEDS: OXYCODONE/APAP 5/325 TAB PO PRN ×4 (03:50→20:09)
[2017-07-07] MEDS: D5W 1/2 NS W/ 20 KCl/L 1,000 ML IV SCH ×2 (03:54→15:55)
[2017-07-07 05:15] LABS: % IMMATURE GRANULYOCYTES 0.4 % (0.0-1.1); ABSOLUTE IMMATURE GRANULOCYTES 0.04 10^3/uL (0.00-0.10); ADD DIFF? NO; ADD MORPH? NO; ADD SCAN? NO; ATYPICAL LYMPHOCYTE FLAG 0 (0-99); FRAGMENT RBC FLAG 0 (0-99); HEMATOCRIT 37.9 % (38.0-47.0); HEMOGLOBIN 12.4 g/dL (12.6-16.3); LEFT SHIFT FLG 0 (0-99); LIPEMIA HEMOLYSIS FLAG 80 (0-99); MEAN CELL HEMOGLOBIN CONCENTR. 32.7 g/dL (32.4-36.7); MEAN CELL VOLUME 91.5 fL (81.5-99.8); PLATELET CLUMPS FLAG 0 (0-99); PLATELET COUNT 252 10^3/uL (150-400); RED BLOOD CELL COUNT 4.14 10^6/uL (4.18-5.33)
[2017-07-07] MEDS: KETOROLAC 15 MG/1 ML SDV IVP SCH ×4 (05:20→22:50)
[2017-07-07] MEDS: NYSTATIN SUSP 500000 UNIT/5 ML UDCUP PO SCH ×4 (05:21→22:10)
[2017-07-07 05:33] LABS: ANION GAP 6 mEq/L (8-16); CALCIUM 8.8 mg/dL (8.5-10.4); CARBON DIOXIDE 31 mEq/l (22-31); CHLORIDE 102 mEq/L (97-110); CREATININE 0.5 mg/dL (0.6-1.0); GLOMERULAR FILTRATION RATE > 60; GLUCOSE 80 mg/dL (70-100); POTASSIUM 4.1 mEq/L (3.5-5.2); SODIUM 139 mEq/L (134-144)
[2017-07-07] MEDS: CHOLECALCIFEROL VIT D3 1,000 UNITS TAB PO SCH (09:11)
[2017-07-07] MEDS: ALBUTEROL 3 ML DEYVIAL NEB PRN ×2 (14:50→23:08)
[2017-07-07] MEDS: ONDANSETRON DISINTEGRATING 4 MG TAB PO PRN (17:33)
--- NOTE | 2017-07-07 18:28 | SOAPPROG ---
SOAP Progress Note Assessment/Plan: Assessment: POD#4 s/p laparotomy and lysis of adhesions for intermittent small bowel obstruction Pain continues Regular diet Return of bowel function Incision CDI Still having difficulty with pain control - mainly back pain due to arthritis - unable to supply cannabis cream Ambulate, PT/OT Spent significant time talking about psychosocial factors affecting recovery and pain S: Feels awful. Walked around room after encouragement from nurse Fransisco. O: Laying in bed, comfortable, NAD Incision cdi. Stool in ostomy appliance Abdomen soft, tender to deep palpation No increased WOB Objective: Vital Signs Temp Pulse Resp BP Pulse Ox 36.4 C 97 14 125/78 H 95 07/07/17 16:00 07/07/17 16:00 07/07/17 16:00 07/07/17 16:00 07/07/17 16:00 Laboratory Results 07/07/17 04:20 07/07/17 04:20 07/06/17 07/07/17 07/08/17 05:59 05:59 05:59 Intake Total 2290 0 1380 Output Total 2750 1750 Balance -460 -1750 1380 ICD10 Worksheet Patient Problems: Problems Problem Status Onset Chronic abdominal pain Acute Stricture of small intestine Acute Abdominal pain Acute Abdominal pain, generalized Acute C. difficile diarrhea Acute 05/25/16 Chronic Disease Mgmt/Transitional Care Acute Chronic abdominal pain Acute Colonic stricture Acute Constipation by outlet dysfunction Acute Diarrhea in adult patient Acute Failure to thrive in adult Acute Gastroenteritis Acute Generalized pain Acute Hypoxemia Acute Intractable abdominal pain Acute Ulcerative colitis Acute
[2017-07-07] MEDS: HYDROmorphONE/DILAUDID 1 MG/ML SYR IVP PRN (20:59)
[2017-07-07] MEDS: guaiFENesin 600 MG TAB.ER PO SCH (21:54)
[2017-07-07] MEDS: MELATONIN 3 MG TAB PO SCH (22:11)
[2017-07-07] MEDS: LORazepam 0.5 MG TAB PO PRN (22:50)
[2017-07-08] MEDS: OXYCODONE/APAP 5/325 TAB PO PRN ×5 (00:14→19:54)
[2017-07-08] MEDS: HYDROmorphONE/DILAUDID 1 MG/ML SYR IVP PRN ×3 (01:58→22:37)
[2017-07-08] MEDS: D5W 1/2 NS W/ 20 KCl/L 1,000 ML IV SCH (05:17)
[2017-07-08] MEDS: NYSTATIN SUSP 500000 UNIT/5 ML UDCUP PO SCH ×5 (05:17→22:39)
[2017-07-08] MEDS: KETOROLAC 15 MG/1 ML SDV IVP SCH ×3 (05:17→18:44)
[2017-07-08] MEDS: DIAZEPAM 5 MG TAB PO PRN ×2 (05:17→16:44)
[2017-07-08] MEDS: ALBUTEROL HFA ANES ONLY 200 PUFFS/8.5 GM MDI IH PRN (05:46)
--- NOTE | 2017-07-08 07:17 | SOAPPROG ---
SOAP Progress Note Assessment/Plan: Assessment: POD # 5 s/p laparotomy and lysis of adhesions for intermittent small bowel obstruction Underweight with BMI 15.5 Opiod Dependence - pain continues to be an issue. Back pain from arthritis as well as abdominal pain. unable to supply cannabis cream Severe protein calorie malnutrition Chronic respirator failure - home oxygen dependence Regular diet Ambulate S: Will ambulate to hallway but in a lot of pain. Trying to eat O: Incision cdi. Stool in ostomy appliance Abdomen scaphoid and appropriately tender BS present Lungs clear Heart regular Plan: 07/04/17 13:01 07/05/17 16:12 07/06/17 10:36 07/08/17 07:15 07/08/17 21:34 Objective: Vital Signs Temp Pulse Resp BP Pulse Ox 36.2 C 79 16 143/84 H 92 07/08/17 04:00 07/08/17 04:00 07/08/17 04:00 07/08/17 04:00 07/08/17 04:00 Laboratory Results 07/07/17 04:20 07/07/17 04:20 07/07/17 07/08/17 07/09/17 05:59 05:59 05:59 Intake Total 0 1380 Output Total 1750 Balance -1750 1380 ICD10 Worksheet Patient Problems: Problems Problem Status Onset Chronic abdominal pain Acute Stricture of small intestine Acute Abdominal pain Acute Abdominal pain, generalized Acute C. difficile diarrhea Acute 05/25/16 Chronic Disease Mgmt/Transitional Care Acute Chronic abdominal pain Acute Colonic stricture Acute Constipation by outlet dysfunction Acute Diarrhea in adult patient Acute Failure to thrive in adult Acute Gastroenteritis Acute Generalized pain Acute Hypoxemia Acute Intractable abdominal pain Acute Ulcerative colitis Acute
[2017-07-08] MEDS: CHOLECALCIFEROL VIT D3 1,000 UNITS TAB PO SCH (09:46)
[2017-07-08] MEDS: guaiFENesin 600 MG TAB.ER PO SCH ×2 (09:47→19:56)
[2017-07-08] MEDS: ALBUTEROL 3 ML DEYVIAL NEB PRN (11:22)
[2017-07-08] MEDS: ONDANSETRON DISINTEGRATING 4 MG TAB PO PRN (12:59)
[2017-07-08] MEDS: MELATONIN 3 MG TAB PO SCH (19:56)
[2017-07-09] MEDS: KETOROLAC 15 MG/1 ML SDV IVP SCH ×2 (00:25→06:11)
[2017-07-09] MEDS: OXYCODONE/APAP 5/325 TAB PO PRN ×5 (00:25→20:12)
[2017-07-09] MEDS: MELATONIN 3 MG TAB PO SCH ×2 (00:30→20:13)
[2017-07-09] MEDS: DIAZEPAM 5 MG TAB PO PRN ×3 (00:32→20:13)
[2017-07-09] MEDS: ALBUTEROL HFA ANES ONLY 200 PUFFS/8.5 GM MDI IH PRN (01:30)
[2017-07-09] MEDS: HYDROmorphONE/DILAUDID 1 MG/ML SYR IVP PRN ×3 (03:17→18:36)
[2017-07-09] MEDS: NYSTATIN SUSP 500000 UNIT/5 ML UDCUP PO SCH ×4 (06:11→20:13)
[2017-07-09] MEDS: [UNRECOGNIZED DRUG - OTHER] PO SCH (08:25)
[2017-07-09] MEDS: guaiFENesin 600 MG TAB.ER PO SCH ×2 (08:35→20:13)
[2017-07-09] MEDS: ONDANSETRON DISINTEGRATING 4 MG TAB PO PRN (15:51)
--- NOTE | 2017-07-09 16:28 | SOAPPROG ---
SOAP Progress Note Assessment/Plan: Assessment: POD#6 s/p laparotomy and lysis of adhesions for intermittent small bowel obstruction. Severe protein deficient malnutrition. Pain continues Regular diet Return of bowel function Incision CDI Check CXR Still having difficulty with pain control - mainly back pain due to arthritis - unable to supply cannabis cream Ambulate, PT/OT Change ostomy appliance today - I encouraged Mariana to do this herself as she does it independently at home Dispo: we recommend SNF to get stronger and work with PT/OT prior to d/c home. D /c tomorrow. Seen c Dr. Montgomery S: Walked yesterday and taking deep breaths. Breathing easier today, not coughing, no fevers. Anxious about ostomy change today O: Laying in bed, comfortable, NAD Incision cdi. heather in place Stool in ostomy appliance Abdomen soft, tender to deep palpation No increased WOB Objective: Vital Signs Temp Pulse Resp BP Pulse Ox 36.7 C 80 20 155/78 H 98 07/09/17 15:31 07/09/17 15:31 07/09/17 15:31 07/09/17 15:31 07/09/17 15:31 Laboratory Results 07/07/17 04:20 07/07/17 04:20 07/08/17 07/09/17 07/10/17 05:59 05:59 05:59 Intake Total 1380 480 Output Total 150 Balance 1380 330 ICD10 Worksheet Patient Problems: Problems Problem Status Onset Chronic abdominal pain Acute Stricture of small intestine Acute Abdominal pain Acute Abdominal pain, generalized Acute C. difficile diarrhea Acute 05/25/16 Chronic Disease Mgmt/Transitional Care Acute Chronic abdominal pain Acute Colonic stricture Acute Constipation by outlet dysfunction Acute Diarrhea in adult patient Acute Failure to thrive in adult Acute Gastroenteritis Acute Generalized pain Acute Hypoxemia Acute Intractable abdominal pain Acute Ulcerative colitis Acute
[2017-07-09] MEDS ORDERED: LOPERAMIDE HCL 2 MG CAP PO ONE (22:15)
[2017-07-10] MEDS: ALBUTEROL 3 ML DEYVIAL NEB PRN (00:20)
[2017-07-10] MEDS: OXYCODONE/APAP 5/325 TAB PO PRN ×5 (00:33→20:26)
[2017-07-10] MEDS: MELATONIN 3 MG TAB PO SCH ×3 (00:34→23:07)
[2017-07-10] MEDS: LORazepam 0.5 MG TAB PO PRN ×2 (00:34→23:07)
[2017-07-10] MEDS: HYDROmorphONE/DILAUDID 1 MG/ML SYR IVP PRN ×4 (03:52→23:06)
[2017-07-10] MEDS: NYSTATIN SUSP 500000 UNIT/5 ML UDCUP PO SCH ×4 (06:17→20:25)
[2017-07-10] MEDS: ONDANSETRON DISINTEGRATING 4 MG TAB PO PRN ×2 (09:12→18:07)
[2017-07-10] MEDS: [UNRECOGNIZED DRUG - OTHER] PO SCH (09:12)
[2017-07-10] MEDS: guaiFENesin 600 MG TAB.ER PO SCH ×2 (09:12→20:20)
[2017-07-10] MEDS: DIAZEPAM 5 MG TAB PO PRN ×2 (09:28→18:07)
[2017-07-10 20:18] VITALS: O2SAT 96
--- NOTE | 2017-07-10 21:08 | SOAPPROG ---
SOAP Progress Note Assessment/Plan: Assessment: POD # 7 s/p laparotomy and lysis of adhesions for intermittent small bowel obstruction Underweight with BMI 15.5 Opiod Dependence - pain continues to be an issue. Back pain from arthritis as well as abdominal pain. unable to supply cannabis cream Severe protein calorie malnutrition Chronic respirator failure - home oxygen dependence Likely home tomorrow Regular diet - appreciate dietary meeting with her. Ambulate S: Tolerated oatmeal. concerned about ostomy appliance. No respiratory symptoms O: Incision cdi. Stool in ostomy appliance Abdomen scaphoid Looks much better today Plan: 07/04/17 13:01 07/05/17 16:12 07/06/17 10:36 07/08/17 07:15 07/08/17 21:34 07/10/17 21:06 Objective: Vital Signs Temp Pulse Resp BP Pulse Ox 36.8 C 86 18 143/71 H 96 07/10/17 20:17 07/10/17 20:17 07/10/17 20:17 07/10/17 20:17 07/10/17 20:17 Laboratory Results 07/07/17 04:20 07/07/17 04:20 07/09/17 07/10/17 07/11/17 05:59 05:59 05:59 Intake Total 480 1000 Output Total 150 3 Balance 330 997 ICD10 Worksheet Patient Problems: Problems Problem Status Onset Chronic abdominal pain Acute Stricture of small intestine Acute Abdominal pain Acute Abdominal pain, generalized Acute C. difficile diarrhea Acute 05/25/16 Chronic Disease Mgmt/Transitional Care Acute Chronic abdominal pain Acute Colonic stricture Acute Constipation by outlet dysfunction Acute Diarrhea in adult patient Acute Failure to thrive in adult Acute Gastroenteritis Acute Generalized pain Acute Hypoxemia Acute Intractable abdominal pain Acute Ulcerative colitis Acute
[2017-07-10] MEDS: ONDANSETRON 4 MG/2 ML VIAL IVP PRN (23:12)
[2017-07-11] MEDS: OXYCODONE/APAP 5/325 TAB PO PRN ×4 (01:12→14:15)
[2017-07-11] MEDS: DIAZEPAM 5 MG TAB PO PRN ×2 (01:39→08:41)
[2017-07-11] MEDS: NYSTATIN SUSP 500000 UNIT/5 ML UDCUP PO SCH ×2 (05:21→12:19)
[2017-07-11] MEDS: LORazepam 0.5 MG TAB PO PRN (05:21)
[2017-07-11] MEDS: guaiFENesin 600 MG TAB.ER PO SCH (08:29)
[2017-07-11] MEDS: ONDANSETRON DISINTEGRATING 4 MG TAB PO PRN ×2 (08:37→14:32)
[2017-07-11] MEDS: [UNRECOGNIZED DRUG - OTHER] PO SCH (08:38)
[2017-07-11 11:07] VITALS: BP 129/68; PULSE 79; RESP 20; TEMP 97.9
== END 2017-07-11 16:50 | disposition home or self-care (01) | DRG 335 ==
LOC: F3E 10:40
PROVIDERS: ADMIT Surgery; ATTEND Surgery
PROC: 0DN80ZZ Release Small Intestine, Open Approach (ICD-10-PCS; principal; 2017-07-03 16:00)
DX: K56.5 Intestinal adhesions [bands] with obstruction (postinfection) (principal); E43 Unspecified severe protein-calorie malnutrition; Z68.1 Body mass index [BMI] 19.9 or less, adult; J96.10 Chronic respiratory failure, unspecified whether with hypoxia or hypercapnia; Z99.81 Dependence on supplemental oxygen; Z93.2 Ileostomy status
CPT/HCPCS: 97161-GP; G8978-GP-CI; G8979-GP-CI; G8980-GP-CI; J1170; J1335; J1885; J2001; J2405; J2704; J3010

== ENCOUNTER 2017-08-20 14:37 | Inpatient (IN) | payer OTHER, MEDICARE ==
--- NOTE | 2017-08-20 14:54 | EDPHY ---
H & P Stated Complaint: SOB and "pain everywhere" Time Seen by Provider: 08/20/17 14:50 HPI/ROS: CHIEF COMPLAINT: Dyspnea, generalized pain HISTORY OF PRESENT ILLNESS: The patient presents to the ED with an acute exacerbation of chronic dyspnea and generalized pain. The patient has a very complicated past medical history. Most noteworthy the is a recent colostomy for possible stricture. The patient has not done well since her surgery. She continues to have generalized pain. The patient is taking oral narcotics. She recently started gabapentin. The patient reports she has been having some intermittent right-sided chest pain for the past several months. REVIEW OF SYSTEMS: A comprehensive 10 point review of systems is otherwise negative aside from elements mentioned in the history of present illness. Source: Patient Exam Limitations: No limitations - Medical/Surgical History Hx Asthma: Yes Hx Chronic Respiratory Disease: No Hx Diabetes: No Hx Cardiac Disease: No Hx Renal Disease: No Hx Cirrhosis: No Hx Alcoholism: No Hx HIV/AIDS: No Hx Splenectomy or Spleen Trauma: No Other PMH: PMH: asthma, ulcerative colitis, arthritis, chronic neck and back pain, pneumonia, depression, chronic pain with opioid dependence. PSH: Total colectomy with ostomy, 3 sx related to bowel obstructions in the past, HERNIA REPAIR - Social History Smoking Status: Heavy smoker - Physical Exam Exam: General Appearance: Thin female, cachectic Eyes: Pupils equal and round no pallor or injection ENT, Mouth: Dry mucous membranes Respiratory: There are no retractions, lungs are clear to auscultation Cardiovascular: Regular rate and rhythm Gastrointestinal: Abdomen is soft, colostomy patent, a normal appearing stool Neurological: A&O, normal motor function, normal sensory exam, normal cranial nerves Skin: Warm and dry, no rashes Musculoskeletal: Kyphotic Extremities: symmetrical, full range of motion Constitutional: Initial Vital Signs Temperature (C) 36.8 C 08/20/17 14:43 Heart Rate 93 08/20/17 14:43 Respiratory Rate 18 08/20/17 14:43 Blood Pressure 102/64 08/20/17 14:43 O2 Sat (%) 82 L 08/20/17 14:43 O2 Delivery Mode Nasal Cannula O2 (L/minute) 5 Allergies/Adverse Reactions: amoxicillin Allergy (Verified 07/03/17 08:04) budesonide Allergy (Verified 07/03/17 08:04) cefuroxime Allergy (Verified 07/03/17 08:04) ciprofloxacin Allergy (Verified 07/03/17 08:04) clarithromycin Allergy (Verified 07/03/17 08:04) clavulanic acid Allergy (Verified 07/03/17 08:04) codeine Allergy (Verified 07/03/17 08:04) dicyclomine Allergy (Verified 07/03/17 08:04) Unknown doxycycline Allergy (Verified 07/03/17 08:04) duloxetine HCl [From Cymbalta] Allergy (Verified 07/03/17 08:04) fluconazole Allergy (Verified 07/03/17 08:04) gabapentin Allergy (Verified 07/03/17 08:04) hydrocodone Allergy (Verified 07/03/17 08:04) metronidazole Allergy (Verified 07/03/17 08:04) prednisone Allergy (Verified 07/03/17 08:04) rabeprazole Allergy (Verified 07/03/17 08:04) ranitidine Allergy (Verified 07/03/17 08:04) Home Medications: Medication Instructions Recorded Herbals/Supplements -Info Only 1 ea PO DAILY 08/10/15 Ondansetron Odt [Zofran Odt 4 mg 4 mg PO Q6 PRN 08/10/15 (*)] Albuterol [Proventil Inhaler HFA 2 puffs IH DAILY PRN 08/13/15 (*)] Cholecalciferol Vit D3 [Vitamin D3 1,000 units PO DAILY 05/25/16 (*)] Melatonin [Melatonin 3 MG (*)] 3 mg PO HS 09/14/16 Diazepam [Valium 5 MG (*)] 2.5 - 5 mg PO TID PRN MDD 15mg 11/13/16 Nystatin 5 ml PO QID 07/03/17 oxyCODONE/APAP 5/325 [Percocet 1 - 2 tab PO Q4 PRN #30 tab 07/11/17 5/325 (*)] Medical Decision Making - Diagnostics EKG Interpretation: EKG: Complete interpretation has been separately recorded in the [employer] archive. Summary impression: Sinus rhythm Imaging Results: Imaging Impressions Chest/Thorax CTA 08/20/17 15:58 Impression: 1. No evidence of thrombopulmonary embolic disease. 2. Mucous plugging in right lower lobe resulting in right lower lobe atelectasis. 3. Moderate to severe emphysema and chronic airways disease are similar to 2015. 4. No acute pneumonia or failure. 5. Calcified coronary plaque and atherosclerotic normal caliber aorta are unchanged. 6. 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 Findings discussed with Emergency Department physician, Dr. Jj Lauren on August 20, 2017 at 1719 hours. ED Course/Re-evaluation: The patient presents to the ED with a variety of complaints including fatigue, dyspnea, ongoing generalized pain and weakness. The patient was noted to be hypoxemic upon arrival. She reports that she only uses oxygen at night. She has had quite a bit of immobilization over the past several months and is at risk for pulmonary embolism. She was felt to be moderate risk for PE. D-dimer was obtained and found to be positive. This was followed up with a CT pulmonary angiogram which fortunately demonstrates no evidence of PE but does demonstrate emphysema and mucous plugging. I re-evaluated the patient at 5:30 p.m.. I had a discussion with her about her current situation. The patient presents to the ED with generalized decline and failure to thrive following a abdominal surgery for chronic abdominal pain. The patient is noted to be hypoxemic secondary to mucus plugging and likely narcotic medication use. She is clinically quite dehydrated. The patient is afebrile. At this point time the patient does not feel as if she can be discharged home secondary to her weakness and fatigue. The patient will require admission to the hospital. I discussed this with the hospitalist service. I think it is reasonable to have a serious discussion with patient about her long-term treatment goals at this point time. Differential Diagnosis: Differential diagnosis considered includes pneumonia, bronchitis, pulmonary embolism, dehydration, anemia - Data Points Laboratory Results: Laboratory Results 08/20/17 15:15 08/20/17 15:15 08/20/17 08/20/17 08/20/17 15:15 15:15 15:15 WBC 14.66 10^3/uL H 10^3/uL (3.80-9.50) RBC 4.30 10^6/uL 10^6/uL (4.18-5.33) Hgb 12.8 g/dL g/dL (12.6-16.3) Hct 39.0 % % (38.0-47.0) MCV 90.7 fL fL (81.5-99.8) MCH 29.8 pg pg (27.9-34.1) MCHC 32.8 g/dL g/dL (32.4-36.7) RDW 14.2 % % (11.5-15.2) Plt Count 401 10^3/uL H 10^3/uL (150-400) MPV 9.5 fL fL (8.7-11.7) Neut % (Auto) 82.6 % H % (39.3-74.2) Lymph % (Auto) 6.5 % L % (15.0-45.0) Schuyler % (Auto) 6.5 % % (4.5-13.0) Eos % (Auto) 3.1 % % (0.6-7.6) Baso % (Auto) 0.9 % % (0.3-1.7) Nucleat RBC Rel Count 0.0 % % (0.0-0.2) Absolute Neuts (auto) 12.10 10^3/uL H 10^3/uL (1.70-6.50) Absolute Lymphs (auto) 0.96 10^3/uL L 10^3/uL (1.00-3.00) Absolute Monos (auto) 0.96 10^3/uL H 10^3/uL (0.30-0.80) Absolute Eos (auto) 0.45 10^3/uL H 10^3/uL (0.03-0.40) Absolute Basos (auto) 0.13 10^3/uL H 10^3/uL (0.02-0.10) Absolute Nucleated RBC 0.00 10^3/uL 10^3/uL (0-0.01) Immature Gran % 0.4 % % (0.0-1.1) Immature Gran # 0.06 10^3/uL 10^3/uL (0.00-0.10) D-Dimer 0.81 ug/mLFEU H ug/mLFEU (0.00-0.50) Sodium 136 mEq/L mEq/L (134-144) Potassium 5.7 mEq/L H mEq/L (3.5-5.2) Chloride 101 mEq/L mEq/L (97-110) Carbon Dioxide 24 mEq/l mEq/l (22-31) Anion Gap 11 mEq/L mEq/L (8-16) BUN 18 mg/dL mg/dL (7-23) Creatinine 0.6 mg/dL mg/dL (0.6-1.0) Estimated GFR > 60 Glucose 106 mg/dL H mg/dL (70-100) Calcium 9.5 mg/dL mg/dL (8.5-10.4) NT-Pro-B Natriuret Pep 318 pg/mL H pg/mL (0-125) Specimen Hemolysis 142 Medications Given: Discontinued Medications Sodium Chloride (Ns) 500 mls @ 1,000 mls/hr IV EDNOW ONE PRN Reason: Protocol Stop: 08/20/17 15:35 Last Admin: 08/20/17 15:24 Dose: 500 mls Departure - Departure Disposition: [facility] Inpatient Acute Clinical Impression: Hypoxemia, Dehydration, Failure to thrive Condition: Fair Referrals: CORAL,BLANCA [Other] - As per Instructions
[2017-08-20] MEDS ORDERED: NS 500 ML IV ONE (15:06)
[2017-08-20 15:26] LABS: % IMMATURE GRANULYOCYTES 0.4 % (0.0-1.1); ABSOLUTE IMMATURE GRANULOCYTES 0.06 10^3/uL (0.00-0.10); ADD DIFF? NO; ADD MORPH? NO; ADD SCAN? NO; ATYPICAL LYMPHOCYTE FLAG 0 (0-99); FRAGMENT RBC FLAG 0 (0-99); HEMOGLOBIN 12.8 g/dL (12.6-16.3); LEFT SHIFT FLG 0 (0-99); LIPEMIA HEMOLYSIS FLAG 80 (0-99); MEAN CELL HEMOGLOBIN 29.8 pg (27.9-34.1); MEAN CELL HEMOGLOBIN CONCENTR. 32.8 g/dL (32.4-36.7); MEAN CELL VOLUME 90.7 fL (81.5-99.8); MEAN PLATELET VOLUME 9.5 fL (8.7-11.7); PLATELET CLUMPS FLAG 10 (0-99); PLATELET COUNT 401 10^3/uL (150-400); RED CELL DISTRIBUTION WIDTH 14.2 % (11.5-15.2)
[2017-08-20 15:37] LABS: ANION GAP 11 mEq/L (8-16); CALCIUM 9.5 mg/dL (8.5-10.4); CARBON DIOXIDE 24 mEq/l (22-31); CHLORIDE 101 mEq/L (97-110); CREATININE 0.6 mg/dL (0.6-1.0); GLOMERULAR FILTRATION RATE > 60; GLUCOSE 106 mg/dL (70-100); POTASSIUM 5.7 mEq/L (3.5-5.2); SODIUM 136 mEq/L (134-144); SPECIMEN HEMOLYSIS 142
--- NOTE | 2017-08-20 15:38 | CPEKG ---
Heart Rate: 80 RR Interval: 750 P-R Interval: 152 QRSD Interval: 70 QT Interval: 380 QTC Interval: 439 P Girard: 73 QRS Girard: 45 T Wave Girard: 69 EKG Severity - ABNORMAL ECG - EKG Impression: SINUS RHYTHM Electronically Signed By: Jj Lauren 20-Aug-2017 16:48:20
[2017-08-20] MEDS ORDERED: IOPAMIDOL (ISOVUE 370) 100 ML BTL IV ONE (16:11)
[2017-08-20] MEDS ORDERED: NS 1,000 ML IV ONE (17:53)
[2017-08-20] MEDS ORDERED: ALBUTEROL 200 PUFFS/18 GM MDI IH PRN (19:18)
[2017-08-20] MEDS ORDERED: ONDANSETRON 4 MG/2 ML VIAL IVP PRN (19:21)
[2017-08-20] MEDS ORDERED: ACETAMINOPHEN 325 MG TAB PO PRN (19:21)
[2017-08-20] MEDS ORDERED: PROMETHAZINE HCL 25 MG/ML INJ IVP PRN (19:21)
--- NOTE | 2017-08-20 19:44 | HOSPPROG ---
Hospitalist Progress Note Assessment/Plan: will check cortisol given her hyperkalemia Objective: Vital Signs Temp Pulse Resp BP Pulse Ox 36.1 C 79 18 101/59 L 93 08/20/17 18:54 08/20/17 18:54 08/20/17 18:54 08/20/17 18:54 08/20/17 18:54 08/19/17 08/20/17 08/21/17 05:59 05:59 05:59 Intake Total 1500 Balance 1500 ICD10 Worksheet Patient Problems: Problems Problem Status Onset Chronic Disease Mgmt/Transitional Care Acute Colonic stricture Acute Ulcerative colitis Acute Constipation by outlet dysfunction Acute Abdominal pain, generalized Acute Abdominal pain Acute Hypoxemia Acute Failure to thrive in adult Acute Diarrhea in adult patient Acute C. difficile diarrhea Acute 05/25/16 Intractable abdominal pain Acute Generalized pain Acute Gastroenteritis Acute Chronic abdominal pain Acute Chronic abdominal pain Acute Stricture of small intestine Acute Dehydration Acute Failure to thrive Acute
--- NOTE | 2017-08-20 19:51 | GHP ---
[f rep st] HISTORY AND PHYSICAL DATE OF ADMISSION: 08/20/2017 CHIEF COMPLAINT: Pain all over and weakness. HISTORY OF PRESENT ILLNESS: This is a 72-year-old female who has been hospitalized 4 times in 2017 f or abdominal pain status post exploratory laparotomy with lysis of adhesions by Dr. Montgomery on 07/03/20 17. Presents to the hospital today with generalized pain as well as some shortness of breath. The patient tells me that her pain has been poorly controlled. 3 days ago she was started on Neuront in, which she does not think has really helped her. She is eating very little. She is riddled with "pain all over." PAST MEDICAL HISTORY: 1. Ulcerative colitis status post subtotal colectomy with ileal pouch and subsequent end-ileostomy. 2. Hypoxic respiratory failure. On 3 L of oxygen. 3. Chronic obstructive pulmonary disease. 4. Chronic pain. 5. Anxiety. 6. Asthma. PAST SURGICAL HISTORY: 1. Subtotal colectomy with ileal pouch and anastomosis. 2. Lysis of adhesions for obstructive symptoms in February 2009, September 2009, March 2010, as well as mo st recently in June of 2017. 3. Cholecystectomy. 4. Multiple eye surgeries. 5. L5-7 cervical fusion. 6. Ventral hernia repair. 7. End-ileostomy in 2015. HOME MEDICATIONS: Refer to [employer] for details. ALLERGIES: Refer to [employer]. Medication allergies were reviewed. SOCIAL HISTORY: She lives at home with her . She has a history of smoking. She denies any a lcohol or illicit drug use. FAMILY HISTORY: Reviewed and noncontributory. REVIEW OF SYSTEMS: Comprehensive 10-point review of systems was done and is negative except for as m entioned in the HPI. PHYSICAL EXAM: VITAL SIGNS: Blood pressure 101/59, pulse 79, respiratory rate 18, O2 saturation 93% on 4 L. Temperature afebrile. GENERAL: Cachectic, ill-appearing. HEENT: Head: Normocephalic, a traumatic. Eyes: PERRLA. Mouth: Dry oral mucosa. NECK: Supple. No lymphadenopathy. CARDIOVASC ULAR: S1-S2. No JVD. No lower extremity edema. PULMONARY: Lungs are clear. No wheezes, rales, o r rhonchi. ABDOMEN: Soft, nontender, nondistended. No guarding or rebound tenderness. Normoactive bowel sounds. EXTREMITIES: No clubbing or cyanosis. NEURO: Cranial nerves 2-12 grossly intact. No focal motor or sensory deficits. SKIN: Clear. No rashes. DIAGNOSTICS: WBC is 14.66, hemoglobin 12.8, hematocrit 39, platelets 401. D-dimer elevated at 0.81, sodium 136, potassium 5.7, chloride 101, CO2 of 24, BUN 18, creatinine 0.6, glucose 106, calcium 9.5 , BNP 318. CT angio of the chest shows no evidence of PE. There is mucus plugging in the right lower lobe resul ting in right lower lobe atelectasis with [id number] emphysema and chronic airway disease. R efer to report for full details. ASSESSMENT/PLAN: This is a 72-year-old female with history of chronic abdominal pain presenting with : 1. [id number] generalized pain. 2. Shortness of breath. Most likely due to underlying emphysema as demonstrated on her CT scan. 3. Mild hyperkalemia. 4. Mild leukocytosis of unclear significance without any obvious signs of infection. PLAN: The patient will be admitted to medical/surgical floor. She does not appear to be thriving at home and will ask Case Management to look into prison facility placement, which the patient is actually agreeable to. We will continue to control her pain with oral narcotic pain medications. I did discuss the possibility that her oral narcotics may be decreasing her energy level and her ap petite, but she tells me she is unwilling to change the dose since this is only thing that is able to give her some relief. We will repeat her potassium in the morning. The patient requests to be full code status. /[id number]/MODL
[2017-08-20] MEDS: LOPERAMIDE HCL 2 MG CAP PO PRN (20:05)
[2017-08-20] MEDS: oxyCODONE IR 5 MG TAB PO SCH (20:05)
[2017-08-20] MEDS: GABAPENTIN 300 MG CAP PO SCH (20:05)
[2017-08-20] MEDS: NYSTATIN SUSP 500000 UNIT/5 ML UDCUP PO SCH (20:06)
[2017-08-20] MEDS ORDERED: IPRATROPIUM/ALBUTEROL 3 ML DEYVIAL IH PRN (20:29)
[2017-08-20] MEDS ORDERED: OXYCODONE/APAP 5/325 TAB PO PRN ×2 (20:29→20:33)
[2017-08-21] MEDS: LOPERAMIDE HCL 2 MG CAP PO PRN ×7 (00:03→20:35)
[2017-08-21] MEDS: oxyCODONE IR 5 MG TAB PO SCH ×8 (00:03→23:12)
[2017-08-21] MEDS: DIAZEPAM 5 MG TAB PO PRN ×4 (00:06→20:29)
[2017-08-21] MEDS: GABAPENTIN 300 MG CAP PO SCH (01:25)
[2017-08-21] MEDS: OXYCODONE/APAP 5/325 TAB PO PRN ×4 (02:47→19:53)
[2017-08-21 05:28] LABS: % IMMATURE GRANULYOCYTES 0.5 % (0.0-1.1); ABSOLUTE IMMATURE GRANULOCYTES 0.05 10^3/uL (0.00-0.10); ADD DIFF? NO; ADD MORPH? NO; ADD SCAN? NO; ATYPICAL LYMPHOCYTE FLAG 10 (0-99); FRAGMENT RBC FLAG 0 (0-99); HEMATOCRIT 36.9 % (38.0-47.0); HEMOGLOBIN 11.8 g/dL (12.6-16.3); LEFT SHIFT FLG 0 (0-99); LIPEMIA HEMOLYSIS FLAG 80 (0-99); MEAN CELL HEMOGLOBIN 29.4 pg (27.9-34.1); MEAN PLATELET VOLUME 9.9 fL (8.7-11.7); PLATELET CLUMPS FLAG 10 (0-99); PLATELET COUNT 332 10^3/uL (150-400); RED BLOOD CELL COUNT 4.01 10^6/uL (4.18-5.33); RED CELL DISTRIBUTION WIDTH 14.2 % (11.5-15.2)
[2017-08-21 05:46] LABS: ANION GAP 10 mEq/L (8-16); CALCIUM 8.9 mg/dL (8.5-10.4); CARBON DIOXIDE 25 mEq/l (22-31); CHLORIDE 106 mEq/L (97-110); CREATININE 0.5 mg/dL (0.6-1.0); GLOMERULAR FILTRATION RATE > 60; GLUCOSE 84 mg/dL (70-100); POTASSIUM 4.7 mEq/L (3.5-5.2); SODIUM 141 mEq/L (134-144)
[2017-08-21 06:14] LABS: CORTISOL-AM 4.3 ug/dL (4.5-22.7)
[2017-08-21] MEDS: ONDANSETRON DISINTEGRATING 4 MG TAB PO PRN ×3 (07:26→23:12)
[2017-08-21] MEDS: ENOXAPARIN 40 MG/0.4 ML SYR SC SCH (08:16)
[2017-08-21] MEDS: CHOLECALCIFEROL VIT D3 1,000 UNITS TAB PO SCH (08:16)
[2017-08-21] MEDS ORDERED: Herbals/Supplements -Info Only PO SCH (09:00)
[2017-08-21] MEDS: NYSTATIN SUSP 500000 UNIT/5 ML UDCUP PO SCH ×3 (10:47→20:35)
--- NOTE | 2017-08-21 14:46 | HOSPPROG ---
Hospitalist Progress Note Assessment/Plan: Chronic abdominal pain secondary to UC - stable, no e/o flare. Recently started on gabapentin for chronic pain, which she did tolerate. Will stop this. Severe emphysema - personally reviewed and interpreted CT, mucus plugging noted. Discussed with pt her COPD has most definitely not gone away as she stated. Discussed CT findings with pt. She may benefit from bronch though is quite stable at the moment. She has apparently not been wearing her O2 during the day and this likely contributed to her acute SOB. -schedule duonebs -add mucomyst -add azithromycin -pt refuses inhaled or systemic steroids, which is probably fine as she doesn 't have much wheezing Chronic hypoxemic respiratory failure secondary to above - requiring 4 LPM, baseline is 3 LPM -care as outlined above -consider pulmonary consult if condition worsens for possible bronchoscopy Hyperkalemia - resolved DVT PPLX - lovenox Full code Dispo - cont inpt, PT/OT evals planned Subjective: Pt reports generalized pain is better. She thinks she didn't tolerate the gabapentin, new med 3 days ago, and this contributed to her symptoms. She does have increased mucus production. No fevers. Denies CP or SOB. Tells me her COPD "went away". She refuses steroids. Objective: Vital Signs Temp Pulse Resp BP Pulse Ox 36.5 C 72 20 100/54 L 94 08/21/17 08:34 08/21/17 08:34 08/21/17 08:34 08/21/17 08:34 08/21/17 08:34 Laboratory Results 08/21/17 04:50 08/21/17 04:50 08/20/17 08/21/17 08/22/17 05:59 05:59 05:59 Intake Total 2440 Output Total 100 Balance 2340 - Physical Exam Constitutional: chronically ill appearing Eyes: PERRL Ears, Nose, Mouth, Throat: moist mucous membranes Cardiovascular: regular rate and rhythym Respiratory: no respiratory distress, reduced air movement Gastrointestinal: normoactive bowel sounds, soft, non-tender abdomen Skin: warm Musculoskeletal: full muscle strength Neurologic: AAOx3 Psychiatric: interacting appropriately ICD10 Worksheet Patient Problems: Problems Problem Status Onset Dehydration Acute Failure to thrive Acute Hypoxemia Acute Abdominal pain Acute Abdominal pain, generalized Acute C. difficile diarrhea Acute 05/25/16 Chronic Disease Mgmt/Transitional Care Acute Chronic abdominal pain Acute Chronic abdominal pain Acute Colonic stricture Acute Constipation by outlet dysfunction Acute Diarrhea in adult patient Acute Failure to thrive in adult Acute Gastroenteritis Acute Generalized pain Acute Intractable abdominal pain Acute Stricture of small intestine Acute Ulcerative colitis Acute
--- NOTE | 2017-08-21 14:58 | ASMTCASEMG ---
Living Arrangements What is your living Answers: With Spouse arrangement? Who do you live with? Type Of Residence What kind of residence do Answers: House you live in? Discharge Plan Comments Coordination Status Comments Notes: Pt is a 72 y/o female admitted w/ failure to thrive, dehydration and weakness. Pt has been hospitalized 4x in 2017 for abdominal pain status post exploratory laparotomy with lysis of adhesions by Dr. Montgomery on 07/03/17. Pt has a supportive . Therapies have been ordered. Needs are TBD. CM to follow. Date Signed: 08/21/2017 02:57 PM Electronically Signed By:CARLOS Olivia
[2017-08-21] MEDS: IPRATROPIUM/ALBUTEROL 3 ML DEYVIAL IH SCH ×5 (15:23→21:53)
[2017-08-21] MEDS: ACETYLCYSTEINE 20% IH/PO 30 ML VIAL IH SCH ×5 (15:23→21:53)
[2017-08-21] MEDS: AZITHROMYCIN 250 MG TAB PO SCH (18:23)
[2017-08-22] MEDS: OXYCODONE/APAP 5/325 TAB PO PRN ×3 (00:27→10:46)
[2017-08-22] MEDS: LOPERAMIDE HCL 2 MG CAP PO PRN ×2 (00:30→08:28)
[2017-08-22] MEDS: IPRATROPIUM/ALBUTEROL 3 ML DEYVIAL IH SCH ×3 (02:30→11:49)
[2017-08-22] MEDS: DIAZEPAM 5 MG TAB PO PRN (03:19)
[2017-08-22] MEDS: oxyCODONE IR 5 MG TAB PO SCH ×3 (03:20→13:40)
[2017-08-22] MEDS: ONDANSETRON DISINTEGRATING 4 MG TAB PO PRN (06:02)
[2017-08-22] MEDS: ACETYLCYSTEINE 20% IH/PO 30 ML VIAL IH SCH ×2 (06:08→11:49)
[2017-08-22] MEDS: NYSTATIN SUSP 500000 UNIT/5 ML UDCUP PO SCH (08:26)
[2017-08-22] MEDS: AZITHROMYCIN 250 MG TAB PO SCH ×2 (08:26→10:39)
[2017-08-22] MEDS: CHOLECALCIFEROL VIT D3 1,000 UNITS TAB PO SCH ×2 (08:26→10:39)
[2017-08-22] MEDS: ENOXAPARIN 40 MG/0.4 ML SYR SC SCH (08:31)
[2017-08-22 11:12] VITALS: BP 107/64
[2017-08-22 11:19] VITALS: TEMP 97.7
--- NOTE | 2017-08-22 11:29 | PDHOMEO2F ---
Home Oxygen Face to Face Home Orders: I certify that a physician or a nurse practitioner or physician's statistical assistant has had a [id number] encounter with this patient on the date of this order due to the diagnosis listed, which relates to the primary reason the patient requires home oxygen. Alternative treatments have been tried, or considered, and deemed ineffective. It is anticipated that supplemental oxygen will result in improvement with treatment. Home oxygen qualifying diagnosis: COPD SpO2 on room air (%): 86 Frequency of home oxygen needed: continuous Home oxygen liters per minute: 4 Home oxygen delivery device: nasal cannula Concentrator: Yes E-tanks for mobility and back up: Yes If ordering portable O2, is the patient mobile in the home?: Yes I certify that, based on these findings, the home oxygen is medically necessary for this patient for the following length of time. Length of time home oxygen needed: 99 years
--- NOTE | 2017-08-22 12:35 | ASMTCMCOM ---
CM Note CM Note Notes: CM spoke w/ JC Cortes regarding d/c POC. Pt is being discharged home independent today. Pt will have her pick her up. Pt will go home w/ 3L of O2. CM available for changes. Date Signed: 08/22/2017 12:34 PM Electronically Signed By:CARLOS Olivia
[2017-08-22 13:01] VITALS: PULSE 78; RESP 20; O2SAT 86
--- NOTE | 2017-08-22 16:20 | ASDISCHSUM ---
Discharge Information Plan Status:Home with No Needs Medically Cleared to Leave:08/22/2017 Discharge Date:08/22/2017 01:45 PM CM D/C Disposition: ADT D/C Disposition:Home, Routine, Self-Care Projected Discharge Date:08/22/2017 12:00 AM Transportation at D/C: Discharge Delay Reason: Follow-Up Date:08/22/2017 12:00 AM Discharge Slot: Final Diagnosis: Placement Information Patient Contact Information Contact Name:BENITO Relationship: Address:[address] City:[place] Alternate Phone: [facility]/Zip Code:[place] [address] Email: Financial Information Financial Class: Primary Plan Desc:MEDICARE INPATIENT Primary Plan Number:[id number] Secondary Plan Desc:[employer]/M[employer] SUPPLEMENT Secondary Plan Number:[id number] Assessment Information [facility] Initial CM Assessment Living Arrangements What is your living Answers: With Spouse arrangement? Who do you live with? Type Of Residence What kind of residence do Answers: House you live in? Discharge Plan Comments Coordination Status Comments Notes: Pt is a 72 y/o female admitted w/ failure to thrive, dehydration and weakness. Pt has been hospitalized 4x in 2017 for abdominal pain status post exploratory laparotomy with lysis of adhesions by Dr. Montgomery on 07/03/17. Pt has a supportive . Therapies have been ordered. Needs are TBD. CM to follow. Date Signed: 08/21/2017 02:57 PM Electronically Signed By:CARLOS Olivia [facility] CM Progress Note CM Note CM Note Notes: CM spoke w/ Sophia, RN regarding d/c POC. Pt is being discharged home independent today. Pt will have her pick her up. Pt will go home w/ 3L of O2. CM available for changes. Date Signed: 08/22/2017 12:34 PM Electronically Signed By:CARLOS Olivia Intervention Information Intervention Type:*IM-Signed Date of Service:08/22/2017 04:13 PM Patient Type:Inpatient Staff Member:Tamara Butts Hours: Discipline: Severity: Comment:
--- NOTE | 2017-08-22 22:33 | GDS ---
[f rep st] DISCHARGE SUMMARY DISCHARGE DIAGNOSES: 1. Chronic hypoxemic respiratory failure secondary to severe emphysema. 2. Severe emphysema with ongoing mucus plugging noted on CT, which did not require bronchoscopy. 3. Hyperkalemia, resolved. 4. Chronic abdominal pain secondary to ulcerative colitis, stable. HISTORY: For details, please see dictated history and physical dated August 20. In brief, the patient is a 72-year-old female with multiple hospitalizations in 2017 for abdominal pain, who [place] to the emergency department with generalized pain and shortness of breath. She reported to me th at she is not using her oxygen during the day. Given her shortness of breath in generalized pain, sharon nolasco was admitted to the hospital for further management. HOSPITAL COURSE: Patient was admitted to the progressive care unit. CT scan of the chest was negati ve for pulmonary embolism. Mucous plugging was noted in the right lower lobe resulting in right lowe r lobe atelectasis with moderate to severe emphysema and chronic airway disease. The patient did hav e increased sputum production, though no significant wheezing. I recommended to her that we treat he r COPD exacerbation with steroids, nebulizers, and azithromycin. She refuses steroids due to concern for untoward reaction. She also refused azithromycin. She states to me that she believes her COPD had gone away and that she does not use her oxygen during the day. This may have contributed to her shortness of breath on presentation as she does require 2-4 L/minute of oxygen by nasal cannula with a room air sat of 86%. She was started on Mucomyst, along with her scheduled DuoNeb. I reviewed her CT scan with our hematology nurse, Dr. Duane Herrmann, who did not feel there was any indication for broncho scopy. In addition, she had no evidence of infection. She remains afebrile. Her white count prior to discharge is normal. She was overall antagonistic regarding discussions about her treatment plan. Ultimately, I recommended she discharge with Spiriva, as well as an inhaled steroid since she refus ed systemic steroids, in addition to azithromycin and guaifenesin. She has reported that she will no t take the azithromycin or the Qvar. She also noted that she had untoward side effects from the maranda pentin, and we both agreed it would be best to discontinue this medication. DISPOSITION: Patient is discharged home in stable condition. DISCHARGE MEDICATIONS: Please see [facility] for completed outpatient medication list. New medication s on discharge include azithromycin 500 mg p.o. daily, #5, no refills; Qvar 40 one puff inhaled b.i.d ., #1, no refills; guaifenesin 1200 mg p.o. b.i.d., #30, no refills; and Spiriva inhaler 18 mcg inhal ed daily. Continue all of her outpatient medications as prescribed. Discontinued medications includ e Neurontin. FOLLOWUP: Dr. Tj Chaudhary, hematology nurse in [place]. /[id number]/MODL
== END 2017-08-22 13:45 | disposition home or self-care (01) | DRG 191 ==
LOC: F2W 18:45
PROVIDERS: ADMIT Family Medicine; ATTEND Family Medicine
DX: J44.1 Chronic obstructive pulmonary disease with (acute) exacerbation (principal); J96.11 Chronic respiratory failure with hypoxia; J98.09 Other diseases of bronchus, not elsewhere classified; K51.90 Ulcerative colitis, unspecified, without complications; E87.5 Hyperkalemia; G89.29 Other chronic pain; F11.20 Opioid dependence, uncomplicated; F17.210 Nicotine dependence, cigarettes, uncomplicated; Z99.81 Dependence on supplemental oxygen; Z98.1 Arthrodesis status; Z87.01 Personal history of pneumonia (recurrent)
CPT/HCPCS: 97165-GO; G8987-GO-CI; G8988-GO-CI; G8989-GO-CI; J1650; Q9967

== ENCOUNTER 2017-08-23 14:39 | Inpatient (IN) | payer OTHER, MEDICARE ==
--- NOTE | 2017-08-23 15:15 | EDPHY ---
H & P Time Seen by Provider: 08/23/17 14:54 HPI/ROS: CHIEF COMPLAINT: Failure to thrive, generalized weakness HISTORY OF PRESENT ILLNESS: 72-year-old female with severe emphysema presents with failure to thrive. She was just discharged from the hospital yesterday after admission for shortness of breath. She was found to have severe emphysema and an oxygen requirement. She refused most medications during her hospitalization, including antibiotics and inhalers. She states that these medications make her feel sick so she does not take them. She is supposed to be on oxygen around the clock, but uses oxygen only at night. This afternoon she awoke, went to the bathroom and then was unable to get off the toilet because of generalized weakness. She has no new symptoms since her previous admission. She also has depression and feels quite lonely at home. This is associated with chronic pain. REVIEW OF SYSTEMS: Constitutional: No fever, no chills Eyes: No visual changes ENT: No sore throat Respiratory: No cough, no shortness of breath Cardiac: No chest pain Gastrointestinal: No nausea, no vomiting, no abdominal pain Genitourinary: no dysuria Musculoskeletal: No leg pain or swelling Skin: No rash Neurological: No headache Psychiatric: depression Past Medical/Surgical History: emphysema Chronic pain Social History: Smoking Status: Heavy smoker Physical Exam: General Appearance: Alert, tangential thought process, appears depressed Eyes: Pupils equal and round, no conjunctival pallor or injection ENT, Mouth: Mucous membranes moist Neck: Normal inspection Respiratory: Lungs are clear to auscultation Cardiovascular: Regular rate and rhythm Gastrointestinal: Abdomen is soft and nontender Neurological: A&O, nonfocal exam Skin: Warm and dry Extremities: 1+ pedal edema Psychiatric: flat affect Constitutional: Initial Vital Signs Temperature (C) 36.7 C 08/23/17 14:39 Heart Rate 73 08/23/17 14:39 Respiratory Rate 16 08/23/17 14:39 Blood Pressure 131/71 H 08/23/17 14:39 O2 Sat (%) 85 L 08/23/17 14:39 O2 Delivery Mode Nasal Cannula O2 (L/minute) 2 Allergies/Adverse Reactions: amoxicillin Allergy (Verified 07/03/17 08:04) budesonide Allergy (Verified 07/03/17 08:04) cefuroxime Allergy (Verified 07/03/17 08:04) ciprofloxacin Allergy (Verified 07/03/17 08:04) clarithromycin Allergy (Verified 07/03/17 08:04) clavulanic acid Allergy (Verified 07/03/17 08:04) codeine Allergy (Verified 07/03/17 08:04) dicyclomine Allergy (Verified 07/03/17 08:04) Unknown doxycycline Allergy (Verified 07/03/17 08:04) duloxetine HCl [From Cymbalta] Allergy (Verified 07/03/17 08:04) fluconazole Allergy (Verified 07/03/17 08:04) gabapentin Allergy (Verified 07/03/17 08:04) hydrocodone Allergy (Verified 07/03/17 08:04) metronidazole Allergy (Verified 07/03/17 08:04) prednisone Allergy (Verified 07/03/17 08:04) rabeprazole Allergy (Verified 07/03/17 08:04) ranitidine Allergy (Verified 07/03/17 08:04) Home Medications: Medication Instructions Recorded Herbals/Supplements -Info Only 1 ea PO DAILY 08/10/15 Ondansetron Odt [Zofran Odt 4 mg 4 mg PO Q6 PRN 08/10/15 (*)] Albuterol [Proventil Inhaler HFA 2 puffs IH DAILY PRN 08/13/15 (*)] Cholecalciferol Vit D3 [Vitamin D3 1,000 units PO DAILY 05/25/16 (*)] Diazepam [Valium 5 MG (*)] 5 mg PO TID PRN MDD 15mg 11/13/16 Nystatin 5 ml PO QID PRN 07/03/17 Loperamide HCl [Imodium 2 mg (*)] 2 mg PO PRN PRN 08/20/17 oxyCODONE HCL/ACETAMINOPHEN 1 each PO Q4H PRN 08/20/17 [Percocet 10-325 mg Tablet] oxyCODONE IR [Oxycodone Ir (*)] 5 - 10 mg PO Q4H PRN 08/20/17 Medical Decision Making ED Course/Re-evaluation: This patient presents with generalized weakness, failure to thrive and depression. Oxygen saturation 84% on room air on arrival, which is similar to her oxygen saturation on her previous admission. A placed on oxygen 2 L by nasal cannula. She does not feel that she is safe at home and cannot manage by herself. She would like half-way placement. There is no evidence of acute injury or illness. The hospitalist service was consulted for admission. Differential Diagnosis: includes though not limited to pneumonia, UTI, hyponatremia, hypoglycemia - Data Points Medications Given: Cholecalciferol (Vitamin D) 1,000 units PO DAILY NANDINI Stop: 02/20/18 08:59 Last Admin: 08/24/17 08:41 Dose: 1,000 units Diazepam (Valium) 5 mg PO TID PRN PRN Reason: Anxiety Stop: 02/19/18 17:45 Last Admin: 08/24/17 14:23 Dose: 5 mg Enoxaparin Sodium (Lovenox) 40 mg SC DAILY NANDINI Stop: 02/20/18 08:59 Last Admin: 08/24/17 08:46 Dose: Not Given Loperamide HCl (Imodium) 2 mg PO PRN PRN PRN Reason: Diarrhea/Loose Stools Stop: 02/20/18 10:51 Last Admin: 08/24/17 19:47 Dose: 2 mg Nystatin (Mycostatin Oral Liquid) 500,000 unit PO QID PRN; Protocol PRN Reason: mouth dryness Stop: 09/22/17 17:45 Last Admin: 08/24/17 14:34 Dose: 500,000 unit Ondansetron HCl (Zofran Odt) 4 mg PO Q6 PRN PRN Reason: Nausea/Vomiting, Use 1st Stop: 02/19/18 17:45 Last Admin: 08/24/17 21:20 Dose: 4 mg Oxycodone HCl (Oxycodone Ir) 5 - 10 mg PO Q4H PRN PRN Reason: Pain, Moderate Stop: 09/02/17 17:45 Last Admin: 08/24/17 21:21 Dose: 10 mg Oxycodone HCl (Oxycodone Ir) 5 mg PO Q4 PRN PRN Reason: Pain, Severe Able to Take PO Stop: 09/02/17 17:53 Last Admin: 08/24/17 18:29 Dose: 5 mg Oxycodone/Acetaminophen (Percocet 5/325) 1 tab PO Q4 PRN PRN Reason: Pain, Severe Able to Take PO Stop: 09/02/17 17:53 Last Admin: 08/24/17 18:30 Dose: 1 tab Discontinued Medications Loperamide HCl (Imodium) 2 mg PO ONCE ONE Stop: 08/23/17 17:44 Last Admin: 08/23/17 19:31 Dose: 2 mg Ondansetron HCl (Zofran) 4 mg IVP EDNOW ONE Stop: 08/23/17 16:45 Last Admin: 08/23/17 16:47 Dose: 4 mg Departure - Departure Disposition: [facility] In[facility] Acute Clinical Impression: Failure to thrive syndrome, adult Condition: Fair
[2017-08-23 16:14] LABS: % IMMATURE GRANULYOCYTES 0.3 % (0.0-1.1); ABSOLUTE IMMATURE GRANULOCYTES 0.03 10^3/uL (0.00-0.10); ADD DIFF? NO; ADD MORPH? NO; ADD SCAN? NO; ATYPICAL LYMPHOCYTE FLAG 10 (0-99); FRAGMENT RBC FLAG 0 (0-99); HEMATOCRIT 40.2 % (38.0-47.0); LEFT SHIFT FLG 0 (0-99); LIPEMIA HEMOLYSIS FLAG 80 (0-99); MEAN CELL HEMOGLOBIN 29.7 pg (27.9-34.1); MEAN CELL HEMOGLOBIN CONCENTR. 32.3 g/dL (32.4-36.7); MEAN CELL VOLUME 91.8 fL (81.5-99.8); MEAN PLATELET VOLUME 9.5 fL (8.7-11.7); PLATELET CLUMPS FLAG 0 (0-99); PLATELET COUNT 423 10^3/uL (150-400); RED BLOOD CELL COUNT 4.38 10^6/uL (4.18-5.33); RED CELL DISTRIBUTION WIDTH 13.9 % (11.5-15.2)
--- NOTE | 2017-08-23 16:15 | CPEKG ---
Heart Rate: 62 RR Interval: 968 P-R Interval: 160 QRSD Interval: 72 QT Interval: 416 QTC Interval: 423 P [place]: 71 QRS [place]: 35 T Wave [place]: 58 EKG Severity - BORDERLINE ECG - EKG Impression: SINUS RHYTHM EKG Impression: PROBABLE LEFT ATRIAL ABNORMALITY EKG Impression: BORDERLINE R WAVE PROGRESSION, ANTERIOR LEADS Electronically Signed By: Millie Collins 23-Aug-2017 21:56:37
[2017-08-23 16:31] LABS: ANION GAP 11 mEq/L (8-16); CALCIUM 9.8 mg/dL (8.5-10.4); CARBON DIOXIDE 28 mEq/l (22-31); CHLORIDE 101 mEq/L (97-110); CREATININE 0.6 mg/dL (0.6-1.0); GLOMERULAR FILTRATION RATE > 60; GLUCOSE 90 mg/dL (70-100); POTASSIUM 4.6 mEq/L (3.5-5.2); SODIUM 140 mEq/L (134-144)
[2017-08-23] MEDS ORDERED: ONDANSETRON 4 MG/2 ML VIAL IVP ONE (16:44)
[2017-08-23] MEDS ORDERED: LOPERAMIDE HCL 2 MG CAP PO ONE (17:43)
[2017-08-23] MEDS ORDERED: ONDANSETRON DISINTEGRATING 4 MG TAB PO PRN (17:44)
[2017-08-23] MEDS ORDERED: ACETAMINOPHEN 325 MG TAB PO PRN (17:44)
[2017-08-23] MEDS ORDERED: ALBUTEROL 200 PUFFS/18 GM MDI IH PRN (17:46)
[2017-08-23] MEDS ORDERED: NON-FORMULARY NEW DRUG (Oxycodone Hcl/Acetaminophen [Percocet 10-325 Mg Tablet] 1 EACH) PO PRN (17:46)
--- NOTE | 2017-08-23 18:31 | GHP ---
[f rep st] HISTORY AND PHYSICAL DATE OF ADMISSION: 08/23/2017 HISTORY OF PRESENT ILLNESS: The patient is a delightful 72-year-old female with a complex history of ileostomy, COPD, medical noncompliance, who was just discharged from the hospital yesterday followin g pain all over and generalized weakness. Physicians recommended correction facility placement; she deferred and she went home. This morning, she got up out of bed and went to go to the bathroom, was on the toilet and was too weak to get up. She presented to the ER where workup was relatively unremarkable. She attributes many of her symptom s to the initiation of Neurontin a number of days ago. She also thinks that her weakness is caused b y the fact that she had an ostomy bag that spilled. She notes liquid stool that is relatively nonsto p. She does have a history of C difficile in May of 2016. She is not entirely clear if this is sim ilar or not similar to that. She does not have fever or chills. Her shortness of breath is unchange d. She wears oxygen at night. She does take inhalers. REVIEW OF SYSTEMS: A complete 10-point review of systems conducted and negative except as noted in t he HPI. PAST MEDICAL HISTORY: 1. Ulcerative colitis, status post subtotal colectomy with ileal pouch and subsequent end ileostomy. 2. Hypoxemic respiratory failure on 3 L of oxygen. 3. COPD. 4. Chronic pain. 5. Anxiety. 6. Asthma. 7. Subtotal colectomy with ileal pouch anastomosis. 8. Lysis of adhesions for obstructive symptoms in February 2009, September 2009, March 2010, as well as Au 2016. 9. Cholecystectomy. 10. Multiple eye surgeries. 11. L5-L7 fusion. 12. Ventral hernia repair. ALLERGIES: Amoxicillin, budesonide, cefuroxime, ciprofloxacin, clavulanic acid, codeine, dicyclomine , doxycycline, duloxetine, fluconazole, gabapentin, hydrocodone, metronidazole, prednisone, rabeprazo le, ranitidine. MEDICATIONS: Nystatin, loperamide, diazepam, vitamin D3, albuterol, oxycodone/acetaminophen as well as p.r.n. oxycodone and ondansetron. SOCIAL HISTORY: She lives with her in what appears to be [place]. Continues to smoke cigar ettes. Does not drink alcohol. FAMILY HISTORY: Parents are . PHYSICAL EXAMINATION: VITAL SIGNS: Temp 36.7, blood pressure 131/71, pulse 73, breathing 16 times a minute, 85% on room air. GENERAL: Cachectic. No acute distress, grumpy. HEENT: Sclerae anicteri c. Oropharynx clear. Mucous membranes are moist. NECK: Supple, without lymphadenopathy or JVD. L UNGS: Clear to auscultation anterolaterally. HEART: S1, S2. Not tachycardic. ABDOMEN: Soft. Sh e is leaking around her ostomy. Bowel sounds are present. Her midline incision is clean, dry, and i ntact and well healed. LOWER EXTREMITIES: Without edema. Calves are nontender. SKIN: Without lamin h. NEUROLOGIC: Nonfocal. LABS: White count 8.6, hematocrit 40, platelets are 423,000. D-dimer is 0.8, that was last week. S odium 140, potassium 4.6, chloride 101, bicarb 28, BUN 17, creatinine 0.6, glucose 90. EKG interpreted by me shows sinus at 62 with normal axis and intervals and no ST or T-wave changes. I have discussed the case with Dr. Marnie Collins as well as Dr. Princess Ragland, the discharging physicia n from yesterday. ASSESSMENT/PLAN: A 72-year-old female with multiple comorbidities, who presents with weakness. 1. Weakness. This is multifactorial. She probably has poor nourishment and chronic diarrhea as wel l as deconditioning. I do not suspect an acute event. There is no laterality to this to suggest cer ebrovascular accident. Workup as below. 2. Diarrhea. Will check a Clostridium difficile. She has been taking Imodium as many as 8 a day ov er the last few days, and she is demanding it now. Give her 1 dose and check Clostridium difficile. I have a low suspicion this is Clostridium difficile but I do acknowledge her history. 3. Chronic obstructive pulmonary disease. Continue oxygen and inhalers. 4. Plan of care: I have written for a palliative care consult. The patient is somewhat antagonisti c but I think pursuing comfort-based care may be consistent with her goals. It may be difficult to r each consensus between her and providers. 5. Prophylaxis. Pharmacologic prophylaxis indicated. 6. Ostomy malfunction. I will have the wound ostomy care nurse see her. DISPOSITION: Inpatient status, likely needs placement. /[id number]/MODL
[2017-08-23] MEDS: oxyCODONE IR 5 MG TAB PO PRN ×2 (19:31→23:16)
[2017-08-23] MEDS: DIAZEPAM 5 MG TAB PO PRN (19:32)
[2017-08-23] MEDS: OXYCODONE/APAP 5/325 TAB PO PRN (20:51)
[2017-08-23] MEDS: NYSTATIN SUSP 500000 UNIT/5 ML UDCUP PO PRN (20:51)
[2017-08-24] MEDS ORDERED: SIMETHICONE DROPS 30 ML BOTTLE PO PRN (00:29)
[2017-08-24] MEDS: OXYCODONE/APAP 5/325 TAB PO PRN ×6 (01:57→22:37)
[2017-08-24] MEDS: DIAZEPAM 5 MG TAB PO PRN ×3 (03:17→14:23)
[2017-08-24] MEDS: NYSTATIN SUSP 500000 UNIT/5 ML UDCUP PO PRN ×3 (03:17→14:34)
[2017-08-24] MEDS: oxyCODONE IR 5 MG TAB PO PRN ×6 (04:41→21:21)
[2017-08-24 05:08] LABS: % IMMATURE GRANULYOCYTES 0.3 % (0.0-1.1); ABSOLUTE IMMATURE GRANULOCYTES 0.02 10^3/uL (0.00-0.10); ADD DIFF? NO; ADD MORPH? NO; ADD SCAN? NO; ATYPICAL LYMPHOCYTE FLAG 10 (0-99); FRAGMENT RBC FLAG 0 (0-99); HEMATOCRIT 37.9 % (38.0-47.0); HEMOGLOBIN 11.9 g/dL (12.6-16.3); LEFT SHIFT FLG 0 (0-99); LIPEMIA HEMOLYSIS FLAG 80 (0-99); MEAN CELL HEMOGLOBIN 29.3 pg (27.9-34.1); MEAN CELL HEMOGLOBIN CONCENTR. 31.4 g/dL (32.4-36.7); MEAN CELL VOLUME 93.3 fL (81.5-99.8); MEAN PLATELET VOLUME 9.5 fL (8.7-11.7); PLATELET CLUMPS FLAG 0 (0-99); PLATELET COUNT 400 10^3/uL (150-400); RED BLOOD CELL COUNT 4.06 10^6/uL (4.18-5.33)
[2017-08-24 05:20] LABS: ANION GAP 10 mEq/L (8-16); CALCIUM 9.2 mg/dL (8.5-10.4); CARBON DIOXIDE 29 mEq/l (22-31); CHLORIDE 105 mEq/L (97-110); CREATININE 0.5 mg/dL (0.6-1.0); GLOMERULAR FILTRATION RATE > 60; GLUCOSE 72 mg/dL (70-100); POTASSIUM 4.7 mEq/L (3.5-5.2); SODIUM 144 mEq/L (134-144)
[2017-08-24] MEDS: ENOXAPARIN 40 MG/0.4 ML SYR SC SCH ×2 (08:40→08:46)
[2017-08-24] MEDS: CHOLECALCIFEROL VIT D3 1,000 UNITS TAB PO SCH (08:41)
[2017-08-24] MEDS: ONDANSETRON DISINTEGRATING 4 MG TAB PO PRN ×2 (08:54→21:20)
[2017-08-24] MEDS ORDERED: Herbals/Supplements -Info Only PO SCH (09:00)
--- NOTE | 2017-08-24 09:38 | HOSPPROG ---
Hospitalist Progress Note Assessment/Plan: 72 yo admitted due to diarrhea, weakness, and possible poor nutritional intake. Patient new to me today -diarrhea -COPD on 3 l/m chronically -Weakness: multifactorial Objective: Vital Signs Temp Pulse Resp BP Pulse Ox 36.6 C 77 16 109/64 96 08/24/17 07:37 08/24/17 07:37 08/24/17 07:37 08/24/17 07:37 08/24/17 07:37 Laboratory Results 08/24/17 04:51 08/24/17 04:51 08/23/17 08/24/17 08/25/17 05:59 05:59 05:59 Intake Total 50 Output Total 150 Balance -100 ICD10 Worksheet Patient Problems: Problems Problem Status Onset Chronic Disease Mgmt/Transitional Care Acute Colonic stricture Acute Ulcerative colitis Acute Constipation by outlet dysfunction Acute Abdominal pain, generalized Acute Abdominal pain Acute Hypoxemia Acute Failure to thrive in adult Acute Diarrhea in adult patient Acute C. difficile diarrhea Acute 05/25/16 Intractable abdominal pain Acute Generalized pain Acute Gastroenteritis Acute Chronic abdominal pain Acute Chronic abdominal pain Acute Stricture of small intestine Acute Dehydration Acute Failure to thrive Acute
--- NOTE | 2017-08-24 10:57 | HOSPPROG ---
Hospitalist Progress Note Assessment/Plan: 72 yo admitted due to diarrhea, weakness, and possible poor nutritional intake. Patient new to me today. Patient is s/p subtotal colectomy with ileostomy patch. -diarrhea: c-diff negative. Will restart immodium -COPD on 3 l/m chronically; currently stable -Weakness: multifactorial -depression: multi worries about home living, chronic pain due to arthritis. Plan -immodium prn -home tomorrow if stable and less diarrhea -offer home visit, visiting nurse, PT/OT Subjective: multiple complaints, no fever, chills, nausea, vomiting; patient is eating well Objective: Vital Signs Temp Pulse Resp BP Pulse Ox 36.6 C 77 16 109/64 96 08/24/17 07:37 08/24/17 07:37 08/24/17 07:37 08/24/17 07:37 08/24/17 07:37 Laboratory Results 08/24/17 04:51 08/24/17 04:51 08/23/17 08/24/17 08/25/17 05:59 05:59 05:59 Intake Total 50 Output Total 150 Balance -100 - Time Spent With Patient Time Spent with Patient: greater than 35 minutes Time Spent with Patient: Greater than 35 minutes spent on this patients care, greater than 50% of time spent counseling, educating, and coordinating care regarding the above mentioned plan. - Pending Discharge Pending Discharge Within 24 Hours: Yes Pending Discharge Date: 08/25/17 Pending Discharge Time: 11:00 - Physical Exam Constitutional: chronically ill appearing, cachectic Eyes: PERRL Ears, Nose, Mouth, Throat: moist mucous membranes, hearing normal Cardiovascular: regular rate and rhythym, no murmur, rub, or gallop Respiratory: no respiratory distress, no rales or rhonchi, reduced air movement Gastrointestinal: normoactive bowel sounds, soft, non-tender abdomen, no palpable masses Genitourinary: no bladder fullness Skin: warm Musculoskeletal: generalized weakness Neurologic: AAOx3, CN II-XII Intact Psychiatric: interacting appropriately, depressed ICD10 Worksheet Patient Problems: Problems Problem Status Onset Chronic Disease Mgmt/Transitional Care Acute Colonic stricture Acute Ulcerative colitis Acute Constipation by outlet dysfunction Acute Abdominal pain, generalized Acute Abdominal pain Acute Hypoxemia Acute Failure to thrive in adult Acute Diarrhea in adult patient Acute C. difficile diarrhea Acute 05/25/16 Intractable abdominal pain Acute Generalized pain Acute Gastroenteritis Acute Chronic abdominal pain Acute Chronic abdominal pain Acute Stricture of small intestine Acute Dehydration Acute Failure to thrive Acute
[2017-08-24] MEDS: LOPERAMIDE HCL 2 MG CAP PO PRN ×4 (12:13→23:19)
[2017-08-25] MEDS: DIAZEPAM 5 MG TAB PO PRN ×3 (01:02→23:14)
[2017-08-25] MEDS: oxyCODONE IR 5 MG TAB PO PRN ×10 (02:36→23:13)
[2017-08-25] MEDS: NYSTATIN SUSP 500000 UNIT/5 ML UDCUP PO PRN ×3 (02:37→22:49)
[2017-08-25] MEDS: OXYCODONE/APAP 5/325 TAB PO PRN ×5 (02:37→23:13)
[2017-08-25] MEDS: LOPERAMIDE HCL 2 MG CAP PO PRN ×8 (03:19→23:14)
[2017-08-25] MEDS: ONDANSETRON DISINTEGRATING 4 MG TAB PO PRN ×3 (05:41→23:12)
[2017-08-25] MEDS: CHOLECALCIFEROL VIT D3 1,000 UNITS TAB PO SCH (10:48)
[2017-08-25] MEDS: ONDANSETRON 4 MG/2 ML VIAL IVP PRN (10:48)
[2017-08-25] MEDS: ENOXAPARIN 40 MG/0.4 ML SYR SC SCH (10:48)
--- NOTE | 2017-08-25 16:09 | HOSPPROG ---
Hospitalist Progress Note Assessment/Plan: 72 yo admitted due to diarrhea, weakness, and possible poor nutritional intake. -diarrhea: Now resolving with the use of Imodium. -COPD on 3 l/m chronically. This appears to be stable without wheezing. She is having no respiratory distress -Weakness: multifactorial. This a problem compounded by both her persistent diarrhea COPD and an underlying depression which is currently not treated. Discussion with patient about her multifactorial problems: I spoke with the patient about her many problems, her home situation, her apparent inability to obtain assistance of her , and her most recent unwillingness to deal and face with these issues. She is very resistant to the fact that she has a colostomy. She reports she cannot accept this. She reports her does not help her although the actual fax or truly unclear. She does have a PCP who speaks with her about this and she reports she has tried antidepressants and says they do not work. She actually has more function and she allows and it is probably her depression more than medical impairment that limits her. She reports pain in the morning lasting approximately 1 hour all over for which she uses a cannabis cream which she says works. I have offered to allow ready using cannabis cream here in the hospital and she declines to obtain the material. She is stocking on resistance mode to her own well-being. I have asked her to make a decision as to whether to go to a SNF for support or whether she wants to go home. She is to make that decision tomorrow. She is declining an SSRI for her depression. Time: 55 minutes Subjective: Reports numerous problems and inability to resolve her own problems and make decisions. No complaints of chest pain shortness of breath or abdominal pain. She reports the diarrhea is improved with Imodium. Objective: Vital Signs Temp Pulse Resp BP Pulse Ox 36.6 C 74 18 109/66 97 08/25/17 15:32 08/25/17 15:32 08/25/17 15:32 08/25/17 15:32 08/25/17 15:32 Laboratory Results 08/24/17 04:51 08/24/17 04:51 08/24/17 08/25/17 08/26/17 05:59 05:59 05:59 Intake Total 50 400 Output Total 150 Balance -100 400 - Time Spent With Patient Time Spent with Patient: greater than 35 minutes Time Spent with Patient: Greater than 35 minutes spent on this patients care, greater than 50% of time spent counseling, educating, and coordinating care regarding the above mentioned plan. - Pending Discharge Pending Discharge Within 24 Hours: Yes Pending Discharge Date: 08/26/17 Pending Discharge Time: 11:00 - Physical Exam Constitutional: not in pain, chronically ill appearing, cachectic Eyes: PERRL, anicteric sclera Ears, Nose, Mouth, Throat: moist mucous membranes, hearing normal Cardiovascular: regular rate and rhythym, no murmur, rub, or gallop Respiratory: no respiratory distress, no rales or rhonchi, clear to auscultation , reduced air movement Gastrointestinal: normoactive bowel sounds, soft, non-tender abdomen, no palpable masses Genitourinary: no bladder fullness Skin: warm Musculoskeletal: generalized weakness Neurologic: AAOx3, CN II-XII Intact Psychiatric: interacting appropriately, depressed ICD10 Worksheet Patient Problems: Problems Problem Status Onset Chronic Disease Mgmt/Transitional Care Acute Colonic stricture Acute Ulcerative colitis Acute Constipation by outlet dysfunction Acute Abdominal pain, generalized Acute Abdominal pain Acute Hypoxemia Acute Failure to thrive in adult Acute Diarrhea in adult patient Acute C. difficile diarrhea Acute 05/25/16 Intractable abdominal pain Acute Generalized pain Acute Gastroenteritis Acute Chronic abdominal pain Acute Chronic abdominal pain Acute Stricture of small intestine Acute Dehydration Acute Failure to thrive Acute
--- NOTE | 2017-08-25 17:43 | ASMTCMCOM ---
CM Note CM Note Notes: Met with patient and to discuss support patient will need on discharge. Patient said she thought maybe about going to [facility] for rehab but doesnt feel that it will make much difference for her. Patient said that prior to her discharge a year ago she was going to have an intake with madison Muhammad but didnt like the man who came to see her so chose not to proceed. Patient says she is open to talking with the Palliative nurse, Sully, at [facility] before discharge to see if that is the direction she wants to go. C/M spoke with [facility] since patient had had them in the past but there is question if Home care is appropriate for her needs. [facility] will come in the morning to talk with patient regarding her needs. Case management will follow. Date Signed: 08/25/2017 05:42 PM Electronically Signed By:ERNESTO Harris
[2017-08-26] MEDS: ONDANSETRON 4 MG/2 ML VIAL IVP PRN ×2 (01:37→08:19)
[2017-08-26] MEDS: LOPERAMIDE HCL 2 MG CAP PO PRN ×4 (01:38→09:28)
[2017-08-26] MEDS: oxyCODONE IR 5 MG TAB PO PRN ×3 (01:39→06:08)
[2017-08-26] MEDS: DIAZEPAM 5 MG TAB PO PRN ×2 (01:51→08:19)
[2017-08-26] MEDS: OXYCODONE/APAP 5/325 TAB PO PRN (03:29)
[2017-08-26] MEDS: NYSTATIN SUSP 500000 UNIT/5 ML UDCUP PO PRN ×2 (09:23→13:15)
[2017-08-26] MEDS: ENOXAPARIN 40 MG/0.4 ML SYR SC SCH (12:59)
[2017-08-26] MEDS: CHOLECALCIFEROL VIT D3 1,000 UNITS TAB PO SCH (12:59)
[2017-08-26 13:42] LABS: HEMATOCRIT 38.6 % (38.0-47.0)
[2017-08-26 16:01] VITALS: BP 129/77; PULSE 64; RESP 17; TEMP 98.2; O2SAT 95
--- NOTE | 2017-08-26 17:21 | ASDISCHSUM ---
Discharge Information Plan Status:Home with No Needs Medically Cleared to Leave: Discharge Date: D/C Disposition: ADT D/C Disposition:Home, Routine, Self-Care Projected Discharge Date:08/26/2017 06:00 PM Transportation at D/C:Family Discharge Delay Reason: Follow-Up Date:08/26/2017 06:00 PM Discharge Slot: Final Diagnosis: Placement Information Patient Contact Information Contact Name:BENITO Relationship: Address:[address] [place] [address] City:[place] Alternate Phone: State/Zip Code:[place] [address] Email: Financial Information Financial Class: Primary Plan Desc:MEDICARE INPATIENT Primary Plan Number:[id number] Secondary Plan Desc:[employer]/M[employer] SUPPLEMENT Secondary Plan Number:[id number] Assessment Information [facility] Progress Note CM Note CM Note Notes: Met with patient and to discuss support patient will need on discharge. Patient said she thought maybe about going to [facility] for rehab but doesnt feel that it will make much difference for her. Patient said that prior to her discharge a year ago she was going to have an intake with madison Muhammad but didnt like the man who came to see her so chose not to proceed. Patient says she is open to talking with the Palliative nurse, Sully, at [facility] before discharge to see if that is the direction she wants to go. C/M spoke with [facility] since patient had had them in the past but there is question if Home care is appropriate for her needs. [facility] will come in the morning to talk with patient regarding her needs. Case management will follow. Date Signed: 08/25/2017 05:42 PM Electronically Signed By:ERNESTO Harris [facility] CM Progress Note CM Note CM Note Notes: Patient discharging home with today Independent. Dr. Busch discontinued patients pain medications and she said that if she couldnt have them she was going to leave for home. Peri was here from [facility] but said that patient does not meet criteria for SNF placement. She also said that patient has been at [facility] in the past and refused to participate in therapies while there. Patient very upset that Peri would not accept her at [facility]. Patient upset that she has to leave the hospital as well. Ángela appears very lonely and isolated in her life and seems to want to have people around her who will care for her. Date Signed: 08/26/2017 05:20 PM Electronically Signed By:ERNESTO Harris Intervention Information
--- NOTE | 2017-08-26 18:20 | GDS ---
[f rep st] DISCHARGE SUMMARY KNOWN ACUTE DIAGNOSES ON THIS ADMISSION: 1. Generalized weakness secondary to excessive narcotic medication, medical noncompliance and resist ance with medical care. 2. 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 The patient is status post ileostomy for ulcerative colitis. 3. Chronic obstructive pulmonary disease with chronic respiratory failure and oxygen dependence of 3 L per minute. 4. Chronic pain syndrome and anxiety syndrome. 5. Acute severe depression. CHRONIC DIAGNOSES: 1. Ulcerative colitis, status post subtotal colectomy with ileal pouch and subsequent end ileostomy. 2. Chronic respiratory failure, on 3 L of oxygen. 3. Chronic obstructive pulmonary disease. 4. Chronic pain syndrome and chronic anxiety syndrome. 5. Status post lysis of adhesions for obstructive symptoms in February 2009, September 2009, March 2010, a s well as June 2017. 6. Status post cholecystectomy. CONSULTATIONS: None. PROCEDURES: None. HOSPITAL COURSE: 1. The patient was admitted for generalized weakness. Her weakness is multifactorial secondary to p oor nutrition and chronic diarrhea. Overall, her weakness is clearly due to a combination of excessi ve narcotic use and noncompliance with gabapentin and antidepressive medications. She clearly had di arrhea or loose stools in her ileal pouch of which she complained frequently. This was relieved with the use of the Imodium. I attempted to relieve it with the use of Metamucil but she says that did n ot work and refused to accept the use of Metamucil as a means to resolve her diarrhea. Ultimately, i t seemed to be resolved with subsequent doses of Imodium. 2. The diarrhea is secondary to her short bowel syndrome as she has an ileal pouch ileostomy. She r eceived an ileostomy over the years secondary to ulcerative colitis. The patient refuses to accept t he fact that she has an ostomy and is quite anxious and concerned and worried about it. These worrie s are clearly unfounded and it is very difficult to talk logically and sensibly with the patient and offer her alternatives. She refuses all true interventions. 3. Her COPD was frankly stable with 3 L of oxygen and required only her usual medications. 4. Chronic pain syndrome and anxiety syndrome compound the management of her problems. She refuses to accept reasonable alternatives and methods to resolve her problems and when confronted with a vazquez ce, she refuses to make a choice. She has been offered gabapentin and offered that by her outpatient pain management doctor, Dr. Proctor. She says the gabapentin causes diarrhea. As to her anxiety, s he prefers to treat her anxiety with frequent doses of anxiolytics and larger and larger doses of sherley cotic. Reviewing her outpatient narcotic medications, it is clear that she is taking far too much na rcotic. I found her asleep and poorly arousable in the room and only was able to ultimately arouse h er after I just stopped all of her narcotic medication. I confronted her with this and she vehementl y denies that she takes too much narcotic and says that she only takes what she is prescribed. If th at is the case, then she is clearly prescribed too much. It is unclear what her pain syndrome truly is. She speaks of pain all over her body when she awakens in the morning which then is relieved afte r approximately an hour. It is not specifically located in any joints or her abdomen. It is clear s he has a lot of anxiety about having the ileostomy. 5. The patient is also significantly depressed. I would suggest that she is severely depressed. Fani nolasco does not eat or function well at home and she has refused to start an SSRI medication. She reports she has taken them before and they just make her sleepy. Once again, she both refuses medical care and is noncompliant with any reasonable suggestions and assistance. I do not believe the patient is suicidal although she frequently talks about disliking her life. She did not express any specific in tention of suicide nor has she made any gestures. 6. After numerous long discussions with this lady, it was clear that she would not accept any of my suggestions or changes or additions to her therapy. She has refused to take antidepressants, she ref uses take Metamucil for her diarrhea and she refuses to acknowledge that she is probably taking exces sive narcotic medication. I discussed this matter with her and her in the room. I have offe red her placement in a SNF rehab facility but she has also refused this. Ultimately, the only soluti on was to discharge her home accompanied by her . Her was here when this decision was made and agreed. DISCHARGE MEDICATIONS: These are the same as her admission medications and are as follows: A herbal supplementation which is a cannabis oil which she says relieves her pain. She rubs it about the ile ostomy and on her arms and legs. Zofrstevo 4 mg q.6 hours p.r.n. nausea, albuterol HFA inhaler 2 puffs q.4 hours p.r.n. shortness of breath, vitamin D3, Valium 5 mg three times daily p.r.n., nystatin 5 mg p.o. p.r.n., loperamide 2 mg p.o. p.r.n. diarrhea, oxycodone IR 5 to 10 mg q.4 hours p.r.n. pain, Pe rcocet 10/325 mg tablet 1 tablet p.o. q.4 hours p.r.n. pain. I have reviewed these medications with her. I reported that I felt she was taking excessive narcotic . She reports it is prescribed by Dr. Proctor. I have suggested that she should cut the medication in half and take gabapentin for relief of her pain along with taking an SSRI for her depression. Onc e again, she has refused this suggestion. I then suggested she follow up with Dr. Proctor for furthe r management. PLAN: The patient has been discharged home in the company of her . She is to see Dr. Proctor in 1 to 2 weeks and discuss decreasing her narcotic dosage and a new pain management strategy. I milligan ve strongly suggested that she obtain treatment for her depression. MATTERS TO BE ADDRESSED AT THE FIRST FOLLOWUP: Once again suggest treatment of her depression and a decrease in her narcotics. TIME: This discharge required 55 minutes, greater than 50% to counseling center director, coordinate care and manage di scussion with her and the patient. /[id number]/MODL
--- NOTE | 2017-08-26 18:31 | PDPCPN ---
Palliative Care Progress Note Assessment/Plan: Referring provider: Dr Busch Reason for consult: Complex medical decision making Symptom control HPI: Mariana Christine is a 72 yo female with PMH COPD, ulcerative colitis s/p ileostomy 1 year ago ,chronic pain, and failure to thrive admitted to the hospital for increased weakness. Recent discharge from [facility] the day before for similar issues. At that time it was suggested she go to SNF but she refused and went home. Here in the hospital hydrated with IV fluids, diarrhea treated with Imodium, and back to baseline. x of non compliance and frequent admissions. Palliative care consulted for complex medical decision making. Met with Mariana at her bedside this afternoon. She described the past year of loss of quality of life for her. She discussed she feels lonely most of the time and often does not want to care for her ileostomy due to her not accepting it fully. She also is hindered by her chronic pain which she sees an outpt pain specialist at [facility]. She feels if her pain were fully treated, she has a better appetite and is therefore able to do more. When her pain is uncontrolled she does not feel like eating and then gets very weak. Spent a long time listening and discussing her overall concerns with her quality of life. She likes to socialize and feels she actually does better in the hospital because there are people taking care of her and a lot more interaction than she gets at home. Assessment: Physical: - Pain: arthritis and chronic abdominal pain -would only continue her outpt prescriptions of Percocet 10/325 Q4hr PRN and Oxy 5mg Q4h PRN - poor appetite - does well eating here in the hospital and had a large breakfast today - diarrhea - on immodium - can schedule if needed Emotional/psychological:she would benefit from ongoing public health social worker support here in the hospital and at discharge. Advanced Care Planning: Is patient decisional?: Yes Code Status: Full MD POA: unsure who is MDPOA. Plan: Palliative care to sign off. She would benefit most from counseling and support systems. Subjective: i have so much pain Objective: Social History: . Has 2 children. Used to enjoy gardening and socializing. Medication list reviewed ROS: General: fatigue, weakness, weight loss ENT: negative Resp: negative GI: poor appetite, abdominal pain : negative MS: arthritis pain all over Skin: negative Neuro: negative Psych: depression Functional assessment: PPS:70% Functional status: independent in ADLs, IADLs Vital Signs Temp Pulse Resp BP Pulse Ox 36.8 C 64 17 129/77 H 95 08/26/17 16:00 08/26/17 16:00 08/26/17 16:00 08/26/17 16:00 08/26/17 16:00 Laboratory Results 08/26/17 04:51 08/24/17 04:51 08/25/17 08/26/17 08/27/17 05:59 05:59 05:59 Intake Total 400 1150 Balance 400 1150 Physical Exam - Physical Exam General Appearance: alert, no apparent distress Respiratory: No respiratory distress, No accessory muscle use Skin: normal color, warm/dry Extremities: No pedal edema Neuro/Psych: alert, oriented x 3 ICD10 Worksheet Patient Problems: Problems Problem Status Onset Abdominal pain Acute Abdominal pain, generalized Acute C. difficile diarrhea Acute 05/25/16 Chronic Disease Mgmt/Transitional Care Acute Chronic abdominal pain Acute Chronic abdominal pain Acute Colonic stricture Acute Constipation by outlet dysfunction Acute Dehydration Acute Diarrhea in adult patient Acute Failure to thrive Acute Failure to thrive in adult Acute Gastroenteritis Acute Generalized pain Acute Hypoxemia Acute Intractable abdominal pain Acute Stricture of small intestine Acute Ulcerative colitis Acute
== END 2017-08-26 17:53 | disposition home or self-care (01) | DRG 947 ==
LOC: EDUNIT# → F1N 17:16
PROVIDERS: ADMIT Internal Medicine; ATTEND Internal Medicine Pulmonary Disease
DX: R53.1 Weakness (principal); T40.605A Adverse effect of unspecified narcotics, initial encounter; Z91.19 Patient's noncompliance with other medical treatment and regimen; R19.7 Diarrhea, unspecified; F32.9 Major depressive disorder, single episode, unspecified; J96.91 Respiratory failure, unspecified with hypoxia; J43.9 Emphysema, unspecified; K91.2 Postsurgical malabsorption, not elsewhere classified; K51.90 Ulcerative colitis, unspecified, without complications; F17.210 Nicotine dependence, cigarettes, uncomplicated; Z93.3 Colostomy status; Z98.1 Arthrodesis status; Z99.81 Dependence on supplemental oxygen
CPT/HCPCS: 92610-GN; 96374; 97161-GP; 97165-GO; G8978-GP-CH; G8979-GP-CH; G8980-GP-CH; G8987-GO-CI; G8988-GO-CI; G8989-GO-CI; G8996-GN-CH; G8997-GN-CH; G8998-GN-CH; J1650; J2405

== ENCOUNTER → 2017-10-17 | Outpatient (CLI) | payer OTHER, MEDICARE ==
[~2017-10-17] MED LIST: IOPAMIDOL (ISOVUE-300) 100 ML BTL ONE
== END ==
LOC: FIMAGING 15:26
PROVIDERS: ATTEND Surgery
DX: J98.4 Other disorders of lung (principal); N20.0 Calculus of kidney
CPT/HCPCS: 74177; Q9967

== ENCOUNTER 2017-11-03 20:32 | Emergency (ER) | payer OTHER, MEDICARE ==
[2017-11-03 20:48] VITALS: TEMP 97.5
--- NOTE | 2017-11-03 20:55 | EDPHY ---
H & P Stated Complaint: Abd pain 6+ months - Personal History Current Tetanus/Diphtheria Vaccine: Yes Current Tetanus Diphtheria and Acellular Pertussis (TDAP): Yes - Medical/Surgical History Hx Asthma: Yes Hx Chronic Respiratory Disease: Yes Hx Diabetes: No Hx Cardiac Disease: No Hx Renal Disease: No Hx Cirrhosis: No Hx Alcoholism: No Hx HIV/AIDS: No Hx Splenectomy or Spleen Trauma: No Other PMH: PMH: asthma, ulcerative colitis, arthritis, chronic neck and back pain, pneumonia, depression, chronic pain with opioid dependence. PSH: Total colectomy with ostomy, 3 sx related to bowel obstructions in the past, HERNIA REPAIR - Social History Smoking Status: Heavy smoker Constitutional: Initial Vital Signs Temperature (C) 36.4 C 11/03/17 20:42 Heart Rate 91 11/03/17 20:42 Respiratory Rate 18 11/03/17 20:42 Blood Pressure 125/68 H 11/03/17 20:42 O2 Sat (%) 94 11/03/17 20:42 O2 Delivery Mode Nasal Cannula O2 (L/minute) 2 Allergies/Adverse Reactions: amoxicillin Allergy (Verified 07/03/17 08:04) budesonide Allergy (Verified 07/03/17 08:04) cefuroxime Allergy (Verified 07/03/17 08:04) ciprofloxacin Allergy (Verified 07/03/17 08:04) clarithromycin Allergy (Verified 07/03/17 08:04) clavulanic acid Allergy (Verified 07/03/17 08:04) codeine Allergy (Verified 07/03/17 08:04) dicyclomine Allergy (Verified 07/03/17 08:04) Unknown doxycycline Allergy (Verified 07/03/17 08:04) duloxetine HCl [From Cymbalta] Allergy (Verified 07/03/17 08:04) fluconazole Allergy (Verified 07/03/17 08:04) gabapentin Allergy (Verified 07/03/17 08:04) hydrocodone Allergy (Verified 07/03/17 08:04) metronidazole Allergy (Verified 07/03/17 08:04) prednisone Allergy (Verified 07/03/17 08:04) rabeprazole Allergy (Verified 07/03/17 08:04) ranitidine Allergy (Verified 07/03/17 08:04) Home Medications: Medication Instructions Recorded Herbals/Supplements -Info Only 1 ea PO DAILY 08/10/15 Ondansetron Odt [Zofran Odt 4 mg 4 mg PO Q6 PRN 08/10/15 (*)] Albuterol [Proventil Inhaler HFA 2 puffs IH DAILY PRN 08/13/15 (*)] Cholecalciferol Vit D3 [Vitamin D3 1,000 units PO DAILY 05/25/16 (*)] Diazepam [Valium 5 MG (*)] 5 mg PO TID PRN MDD 15mg 11/13/16 Nystatin 5 ml PO QID PRN 07/03/17 Loperamide HCl [Imodium 2 mg (*)] 2 mg PO PRN PRN 08/20/17 oxyCODONE HCL/ACETAMINOPHEN 1 each PO Q4H PRN 08/20/17 [Percocet 10-325 mg Tablet] oxyCODONE IR [Oxycodone Ir (*)] 5 - 10 mg PO Q4H PRN 08/20/17 Medical Decision Making ED Course/Re-evaluation: CHIEF COMPLAINT: "I wish I could stop having pain" HISTORY OF PRESENT ILLNESS: The patient is a 72 y/o female with a history of chronic pain arriving with her complaining of chronic pain. She says she woke up this morning and started screaming because of the pain everywhere. Her pain improved after taking her opioids and using topical CBD oil. She is prescribed multiple opioids for her pain through her pain clinic and has enough pills available to last her until her next appointment. She was admitted for failure to thrive and ultimately refused all treatment recommendations from the hospitalists. The discharge note from that visit says despite several discussions, "it was clear that she would not accept any suggestions or changes or additions to her therapy." The hospitalist offered to arrange discharge to a SNF, which she adamantly refused and was ultimately discharged home with her . During discussion today, she indicates she does not want to go to a rehab facility due to loss of control over her pain medications. She is scheduled to see her PCP in 2 days and a GI and a neurosurgeon in a few weeks. She has had diarrhea for several months. She denies any new complaints today. No vomiting or fever. REVIEW OF SYSTEMS: A 10 point review of systems was performed and is negative with the exception of the elements mentioned in the history of present illness. PHYSICAL EXAM: HR, BP, O2 Sat, RR. Temp noted General Appearance: Alert, appropriate, frail, thin, and cachectic-appearing. Head: Atraumatic without scalp tenderness or obvious injury Eyes: Pupils equal, round, reactive to light and accommodation, EOMI, no trauma , no injection. Ears: Clear bilaterally, no perforation, normal landmarks Nose: Atraumatic, no rhinorrhea, clear. Mouth: Dentures in place Throat: There is no erythema or exudates, no lesions, normal tonsils, mucus membranes moist. Neck: Supple, nontender, no lymphadenopathy. Respiratory: No retractions, no distress, no wheezes, and no accessory muscle use. Lungs are clear to auscultation bilaterally. Cardiovascular: Regular rate and rhythm, no murmurs, rubs, or gallops. Good capillary refill all extremities. Gastrointestinal: Abdomen is soft, nontender, non-distended, no masses, no rebound, no guarding, no peritoneal signs. Musculoskeletal: Normal active ROM of all extremities, atraumatic. Neurological: Alert, appropriate, and interactive. The patient has non-focal cranial nerves, motor, sensory, and cerebellar exam. Skin: No rashes, good turgor, no nodules on palpation. Past medical history: 1. Generalized weakness secondary to excessive narcotic medication, medical compliance and resistance with medical care. 2. Ulcerative colitis status post subtotal colectomy with ileal pouch and subsequent end ileostomy - Dr. Montgomery 3. COPD - hypoxemic respiratory failure on 3L O2 4. Chronic pain syndrome and chronic anxiety syndrome 5. Anxiety 6. Asthma 7. Lysis of adhesions for obstructive symptoms 8. Cholecystectomy 9. Multiple eye surgeries 10. L5-L7 fusion 11. Ventral hernia repair 12. Severe depression Family history: Noncontributory Social history: at bedside assists in care. Lives in [place]. Smokes cigarettes. No alcohol use. Prior medical records reviewed including admission 08/23/17 for failure to thrive. DIFFERENTIAL DIAGNOSIS: The differential diagnosis for the patient's complaints included but was not limited to chronic pain syndrome, chronic anxiety syndrome, untreated depression, opioid dependence. . MEDICAL DECISION MAKING: This is a cachectic-appearing 72 y/o female with chronic pain and opioid dependence who presents complaining of chronic pain. It's unclear what her goals are in the ED today as she does not want to relinquish any control over her narcotics either as an inpatient here or in a SNF. She has been offered assistance moving into a SNF or rehab facility to assist with her care during prior admissions and has adamantly refused. I discussed options for admission or discharge home at length with her, though I see no acute symptoms that we would be able to treat any differently than during prior admissions. She is going to consider the options with her . They Have decided to go home this evening. She has numerous doctor appointments this week. She has recently been admitted to the hospital but that did not really improve anything as she refuses to go to a rehab facility. Departure - Departure Disposition: Home, Routine, Self-Care Clinical Impression: Chronic pain Qualifiers: Chronic pain type: other chronic pain Qualified Code(s): G89.29 - Other chronic pain Condition: Good Instructions: Chronic Pain (ED) Referrals: [facility]AN[facility] [Other] - As per Instructions Report Scribed for: Billy Durant Report Scribed by: Diana Irvin Date of Report: 11/03/17 Time of Report: 21:25
[2017-11-03 21:34] VITALS: O2SAT 97
[2017-11-03 22:34] VITALS: BP 117/80; PULSE 88; RESP 19
== END 2017-11-03 22:35 | disposition home or self-care (01) ==
DX: R10.9 Unspecified abdominal pain (principal); G89.29 Other chronic pain; F17.200 Nicotine dependence, unspecified, uncomplicated; J44.9 Chronic obstructive pulmonary disease, unspecified

== ENCOUNTER 2017-11-22 14:31 | Emergency (ER) | payer OTHER, MEDICARE ==
[2017-11-22] MEDS ORDERED: NS 500 ML IV ONE ×2 (15:08→16:40)
[2017-11-22] MEDS ORDERED: ONDANSETRON 4 MG/2 ML VIAL IVP ONE (15:08)
--- NOTE | 2017-11-22 15:08 | EDPHY ---
General - History Smoking Status: Heavy smoker Narrative: CHIEF COMPLAINT: Abdominal pain, chronic pain HISTORY OF PRESENT ILLNESS: Patient complains of "I keep asking for somebody to help me." She complains of severe abdominal pain, left greater than right. She also has chronic pain from "head to toe that no one can figure out. There has to be something wrong." She does not have chest pain but she does have headache, right-sided neck pain, abdominal pain, nausea, intermittent constipation and diarrhea. No bloody stools. The patient has a very complex abdominal history with multiple evaluations at admission due to colon cancer status post colectomy with ostomy bag. She also has extensive pain medication at home that she has been taking, except her morphine. She has not been taking morphine because "it makes me too sleepy." She denies fever. She is very tearful and emotionally labile during my examination. Chart review performed and commented on below. She is in no acute distress. No other associated complaints or modifying factors. REVIEW OF SYSTEMS: Ten systems reviewed and are negative unless otherwise noted in the HPI PCP: Dr. Kavita Maldonado SPECIALISTS: Dr. Oliveira pharmacy retail support specialist PAST MEDICAL HISTORY: Extensive. Reviewed as documented. Pertinent positives are ulcerative colitis , colon cancer status post colectomy PAST SURGICAL HISTORY: Total colectomy, multiple laparotomies for bowel obstructions SOCIAL HISTORY: Nonsmoker. Opioid dependency due to chronic pain FAMILY HISTORY: Noncontributory EXAMINATION General Appearance: Frail and Cachectic, Alert, no distress, tearful Head: normocephalic, atraumatic Eyes: Pupils equal and round, no conjunctival pallor or injection ENT, Mouth: Mucous membranes mildly dry. Injuries in place. Neck: Normal inspection, supple. There is right-sided trapezius tenderness and muscle spasm. Respiratory: Lungs are clear to auscultation. No wheeze, rhonchi or crackles Cardiovascular: Tachycardic rate. Regular rhythm. No murmur Gastrointestinal: Abdomen is soft and nondistended. Guarding in the left upper quadrant left lower quadrant. Firm abdomen in all 4 quadrants. No rigidity. No tympany. Bowel sounds are symmetric. There is right lower quadrant ostomy with normal appearing output. Neurological: A&O, nonfocal, strength is symmetric in all 4 limbs. Skin: Warm and dry, no rash no petechiae or purpura Extremities: Symmetric range of motions in limbs. Psychiatric: Tearful but denies suicidal ideation. DIFFERENTIAL DIAGNOSES: Including but not limited to chronic pain, acute abdomen, enteritis, gastritis, pancreatitis, dehydration, opioid dependency, UTI MDM: 2:55 p.m. Acute on chronic pain in a very difficult patient. Chart review discovers she has had multiple modalities offered to her that she has declined. This includes palliative care, [facility] facility, inpatient admission. She has had multiple workups at do not reveal any clear etiologies for her pain. She is tachycardic and appears to be guarding the abdomen, thus I have ordered CT scan of the abdomen pelvis, laboratory studies. I informed her that I will order 1 dose of IV morphine given her extensive opiate dependency. She is mildly tachycardic but afebrile and normotensive, and she is in no acute distress. 4:00 p.m. Laboratory studies unremarkable for patient. CT scan is pending. Remains mildly tachycardic despite morphine and 1st bolus of IV fluid. 4:43 p.m. Notified by radiologist Dr. Rios. Chronic CT scan abnormalities but no acute findings. The CT is similar in appearance from September. 4:55 p.m. I have re-evaluated the patient. She complains of no improvement of her pain despite the morphine. She is concerned about going home due to her pain, but she also is hesitant to stay. I do not feel she has a surgical abdomen at this time. Her vital signs have improved. Laboratory studies are baseline. Her CT scan is at baseline. The patient is very difficult in her previous evaluations and has been noncompliant with recommendations and has declined higher care. Despite this, I will consult the hospitalist for their recommendation. She is in no acute distress resting comfortably at this time. 4:59 p.m. Case discussed with Dr. Downing. He will evaluate the patient in the ED shortly. 5:[address] Downing is currently examining the patient. 5:[address] Downing has examine the patient and spent extensive amount of time with her. They ultimately decided together that she should be discharged home. She is requesting her regularly scheduled dose of OxyContin IR 20 mg. I have ordered this. She is also asking for some food, specifically mash potatoes and pudding. Please see Dr. Downing's no for further details. At this time the patient is agreeable with going home and prefers to go home. She is declining admission to the hospital at this time. Additionally I do think she is stable for discharge home. Her vital signs have normalized. She is in no acute distress and she has ambulated here. Both the patient and her spouse are agreeable with this plan and she would like to be discharged home at this time. SUPERVISION: Patient was independently examined, but I discussed the case with my secondary supervising physician Dr. Lauren (Rich Riojas) Medical Decision Making: PHYSICIAN DOCUMENTATION: The patient was evaluated and managed by the Physician Gas Fitter Helper. My co- signature indicates that I have reviewed this chart and I agree with the findings and plan of care as documented. I am the secondary supervising physician. (Jj Lauren) - Diagnostics Imaging Results: Imaging Impressions Abdomen CT 11/22/17 15:09 Impression: No evidence for acute intraabdominal or pelvic abnormality. Multiple chronic findings as above which are stable. Results called and discussed with Rich Riojas PA-C at 11/22/2017 16:39. - Objective Vital Signs: Initial Vital Signs Temperature (C) 36.7 C 11/22/17 14:33 Heart Rate 110 H 11/22/17 14:33 Respiratory Rate 20 11/22/17 14:33 Blood Pressure 93/67 L 11/22/17 14:33 O2 Sat (%) 92 11/22/17 14:33 O2 Delivery Mode Room Air Allergies/Adverse Reactions: amoxicillin Allergy (Verified 11/22/17 14:33) budesonide Allergy (Verified 11/22/17 14:33) cefuroxime Allergy (Verified 11/22/17 14:33) ciprofloxacin Allergy (Verified 11/22/17 14:33) clarithromycin Allergy (Verified 11/22/17 14:33) clavulanic acid Allergy (Verified 11/22/17 14:33) codeine Allergy (Verified 11/22/17 14:33) dicyclomine Allergy (Verified 11/22/17 14:33) Unknown doxycycline Allergy (Verified 11/22/17 14:33) duloxetine HCl [From Cymbalta] Allergy (Verified 11/22/17 14:33) fluconazole Allergy (Verified 11/22/17 14:33) gabapentin Allergy (Verified 11/22/17 14:33) hydrocodone Allergy (Verified 11/22/17 14:33) metronidazole Allergy (Verified 11/22/17 14:33) prednisone Allergy (Verified 11/22/17 14:33) rabeprazole Allergy (Verified 11/22/17 14:33) ranitidine Allergy (Verified 11/22/17 14:33) Home Medications: Medication Instructions Recorded Herbals/Supplements -Info Only 1 ea PO DAILY 08/10/15 Ondansetron Odt [Zofran Odt 4 mg 4 mg PO Q6 PRN 08/10/15 (*)] Albuterol [Proventil Inhaler HFA 2 puffs IH DAILY PRN 08/13/15 (*)] Cholecalciferol Vit D3 [Vitamin D3 1,000 units PO DAILY 05/25/16 (*)] Diazepam [Valium 5 MG (*)] 5 mg PO TID PRN MDD 15mg 11/13/16 Nystatin 5 ml PO QID PRN 07/03/17 Loperamide HCl [Imodium 2 mg (*)] 2 mg PO PRN PRN 08/20/17 oxyCODONE HCL/ACETAMINOPHEN 1 each PO Q4H PRN 08/20/17 [Percocet 10-325 mg Tablet] oxyCODONE IR [Oxycodone Ir (*)] 5 - 10 mg PO Q4H PRN 08/20/17 Laboratory Results: Laboratory Results 11/22/17 15:25 11/22/17 15:25 11/22/17 11/22/17 11/22/17 15:27 15:25 15:25 WBC RBC Hgb POC Hgb 13.3 gm/dL gm/dL (12.6-16.3) Hct POC Hct 39 % % (38-47) MCV MCH MCHC RDW Plt Count MPV Neut % (Auto) Lymph % (Auto) [place] % (Auto) Eos % (Auto) Baso % (Auto) Nucleat RBC Rel Count Absolute Neuts (auto) Absolute Lymphs (auto) Absolute Monos (auto) Absolute Eos (auto) Absolute Basos (auto) Absolute Nucleated RBC Immature Gran % Immature Gran # PT 13.4 SEC SEC (12.0-15.0) INR 1.00 (0.83-1.16) APTT 32.0 SEC SEC (23.0-38.0) POC Sodium 137 mEq/L mEq/L (134-144) Sodium 139 mEq/L mEq/L (134-144) POC Potassium 4.8 mEq/L mEq/L (3.3-5.0) Potassium 5.1 mEq/L mEq/L (3.5-5.2) POC Chloride 99 mEq/L mEq/L (97-110) Chloride 97 mEq/L mEq/L (97-110) Carbon Dioxide 32 mEq/l H mEq/l (22-31) Anion Gap 10 mEq/L mEq/L (8-16) POC BUN 28 mg/dL H mg/dL (7-23) BUN 29 mg/dL H mg/dL (7-23) Creatinine 0.9 mg/dL mg/dL (0.6-1.0) POC Creatinine 0.9 mg/dL mg/dL (0.6-1.0) Estimated GFR > 60 Glucose 111 mg/dL H mg/dL (70-100) POC Glucose 114 mg/dL H mg/dL (70-100) Calcium 9.5 mg/dL mg/dL (8.5-10.4) Total Bilirubin 0.4 mg/dL mg/dL (0.1-1.4) Conjugated Bilirubin 0.3 mg/dL mg/dL (0.0-0.5) Unconjugated Bilirubin 0.1 mg/dL mg/dL (0.0-1.1) AST 43 IU/L IU/L (14-46) ALT 50 IU/L IU/L (9-52) Alkaline Phosphatase 117 IU/L IU/L (38-126) Total Protein 7.4 g/dL g/dL (6.3-8.2) Albumin 3.6 g/dL g/dL (3.5-5.0) Lipase 22 IU/L L IU/L (23-300) 11/22/17 15:25 WBC 6.27 10^3/uL 10^3/uL (3.80-9.50) RBC 4.22 10^6/uL 10^6/uL (4.18-5.33) Hgb 12.2 g/dL L g/dL (12.6-16.3) POC Hgb Hct 37.6 % L % (38.0-47.0) POC Hct MCV 89.1 fL fL (81.5-99.8) MCH 28.9 pg pg (27.9-34.1) MCHC 32.4 g/dL g/dL (32.4-36.7) RDW 13.2 % % (11.5-15.2) Plt Count 360 10^3/uL 10^3/uL (150-400) MPV 9.6 fL fL (8.7-11.7) Neut % (Auto) 75.2 % H % (39.3-74.2) Lymph % (Auto) 12.0 % L % (15.0-45.0) [place] % (Auto) 7.5 % % (4.5-13.0) Eos % (Auto) 3.2 % % (0.6-7.6) Baso % (Auto) 1.8 % H % (0.3-1.7) Nucleat RBC Rel Count 0.0 % % (0.0-0.2) Absolute Neuts (auto) 4.72 10^3/uL 10^3/uL (1.70-6.50) Absolute Lymphs (auto) 0.75 10^3/uL L 10^3/uL (1.00-3.00) Absolute Monos (auto) 0.47 10^3/uL 10^3/uL (0.30-0.80) Absolute Eos (auto) 0.20 10^3/uL 10^3/uL (0.03-0.40) Absolute Basos (auto) 0.11 10^3/uL H 10^3/uL (0.02-0.10) Absolute Nucleated RBC 0.00 10^3/uL 10^3/uL (0-0.01) Immature Gran % 0.3 % % (0.0-1.1) Immature Gran # 0.02 10^3/uL 10^3/uL (0.00-0.10) PT INR APTT POC Sodium Sodium POC Potassium Potassium POC Chloride Chloride Carbon Dioxide Anion Gap POC BUN BUN Creatinine POC Creatinine Estimated GFR Glucose POC Glucose Calcium Total Bilirubin Conjugated Bilirubin Unconjugated Bilirubin AST ALT Alkaline Phosphatase Total Protein Albumin Lipase Medications Given: Discontinued Medications Sodium Chloride (Ns) 500 mls @ 0 mls/hr IV EDNOW ONE; Wide Open PRN Reason: Protocol Stop: 11/22/17 15:09 Last Admin: 11/22/17 15:41 Dose: 500 mls Sodium Chloride (Ns) 500 mls @ 0 mls/hr IV EDNOW ONE; Wide Open PRN Reason: Protocol Stop: 11/22/17 16:41 Last Admin: 11/22/17 16:52 Dose: 500 mls Morphine Sulfate (Morphine) 4 mg IVP EDNOW ONE Stop: 11/22/17 15:09 Last Admin: 11/22/17 15:40 Dose: 4 mg Ondansetron HCl (Zofran) 4 mg IVP EDNOW ONE Stop: 11/22/17 15:09 Last Admin: 11/22/17 15:42 Dose: 4 mg Oxycodone HCl (Oxycodone Ir) 20 mg PO EDNOW ONE Stop: 11/22/17 17:42 Last Admin: 11/22/17 17:46 Dose: 20 mg Point of Care Test Results: 11/22/17 15:27 POC Sodium 137 POC Potassium 4.8 POC Chloride 99 POC BUN 28 H POC Creatinine 0.9 POC Glucose 114 H Departure - Departure Disposition: Home, Routine, Self-Care Clinical Impression: Chronic abdominal pain Opiate dependence Qualifiers: Substance use status: uncomplicated Qualified Code(s): F11.20 - Opioid dependence, uncomplicated Condition: Good Instructions: Chronic Pain (ED), Opioid Dependence (ED), Opioid Pain Management (ED) Additional Instructions: 1. Contact your primary care nurse practitioner Erica 2. ED precautions as discussed Referrals: UNSURE,NAME [Other] - As per Instructions
[2017-11-22 15:40] LABS: PLATELET COUNT 360 10^3/uL (150-400)
[2017-11-22 15:49] LABS: PROTIME(PATIENT) 13.4 SEC (12.0-15.0)
[2017-11-22] MEDS ORDERED: IOPAMIDOL (ISOVUE-300) 100 ML BTL ONE (15:56)
[2017-11-22] MEDS ORDERED: oxyCODONE IR 5 MG TAB PO ONE (17:41)
--- NOTE | 2017-11-22 17:59 | PDCONSULT ---
[employer] Super[employer] Note: PCP: Kavita Maldonado GI: Dr. Oliveira Pain: Dr. Proctor CC: "I'm looking for a miracle" HPI: 72 yo F p/w hopes that she will find a "miracle" and that someone will figure out how to make her pain go away. She characterizes her pain as total body, worse in the L abdomen, sharp, stabbing, associated w/ diarrhea, abd bloating, headache, neck pain. Onset is years ago, duration is persistent, "all day, everyday" as described by the patient. When asked what was different about today, she replied, "I wanted to come to the ED yesterday, and the day before that, and the day before that . . ." implying that she is always looking for help dealing with her pain. It is only somewhat alleviated by PO oxy IR (she takes 20mg q4hrs, and sometimes 15mg q3hrs), and her anxiety is managed by valium 5mg tid. She avoid gabapentin because she believes is exacerbated her diarrhea, and she avoids SSRIs b/c she reports that anti-depressants have made her feel unwell in the past. She reports poor oral intake chronically, but is drinking fluids and taking her meds PO w/o interruption. She reports that CBD cream does alleviate the pain somewhat, and she regularly applies it to the left abdomen. She does not engage in any non-pharmacologic methods of coping with chronic pain. 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 Past surgical history: Cholecystectomy, ileostomy secondary to ulcerative colitis Social history: Patient does not drink alcohol or smoke cigarettes, she lives with her Family history: Patient denies any family history of recent GI illnesses Allergies: Patient has numerous antibiotic allergies, unclear reactions Physical exam: Systolic blood pressure 110, heart rate 86, respirations 12, O2 sat 92% on 3 L nasal cannula, temperature 36.7degrees, alert awake oriented x3, cachectic appearing, anxious, patient reports she is in pain, pupils equal round reactive to light, anicteric sclera, tacky mucous membranes, minimal glossitis, patient has facial symmetry, motor strength 5/5 bilateral upper and lower extremities, proximal muscle wasting, no pain in the hips with flexion, lungs are clear to auscultation bilaterally without any crackles or wheezes, heart rhythm is regular without any murmurs rubs or gallops, abdomen is flat, moderately tender to mild depth palpation, bowel sounds are present, right- sided ostomy in place, well-healed surgical scar midline, no rashes, no erythema around the stoma, no involuntary guarding of the abdomen Data: Lab values include potassium 4.8, serum bicarb 32, creatinine 0.9, white blood count 6300, hemoglobin 12.2, glucose 110, imaging included CT scan demonstrating a cleared right middle lobe, no small-bowel obstruction, L2 and L5 compression abnormalities, calcified pancreas Outside records: 11/03/2017 emergency department report by Dr. Billy Durant, reporting the patient presented for abdominal pain, no objective abnormalities, discharged home without any intervention, 08/26/[address] Jasiel Busch, fully details patient's most recent hospitalization for acute on chronic pain, most likely secondary to her underlying pain disorder, complicated by her anxiety and personality issues, patient refused gabapentin, refused SSRI, refused care home facility placement, refused Imodium Assessment: 72-year-old female presents with acute on chronic abdominal pain, acute on chronic anxiety and depression Plan: The patient is presenting with acute worsening of her chronic pain in the setting of acute worsening of her chronic anxiety and depression, leading to significant frustration about her chronically ill state. The patient currently does not have any acute objective abnormalities, with her heart rate normalizing once she was settled down, her blood pressure normalizing after a minimal amount of IV fluids, and the patient having no evidence of bowel pathology on CT imaging or any it is of acute kidney injury on serum chemistry. I have worked with this patient on numerous occasions in the past, and she both physically and psychologically decompensates when she is in the hospital, further complicated by the fact that her underlying personality issues prevent her from receiving care recommendations in an effective way. This was experienced by Dr. Jasiel Busch during her most recent hospitalization, at which time he had recommended numerous reasonable choice is to treat her symptoms including diarrhea, anxiety, depression, and the patient declined all of them. He also offered the patient additional care any care home facility to facilitate strengthening, physical therapy, and the patient declined this as well. Likely, the patient has recently held in home healthcare , and the patient's reports that it has been in place the last 1-2 weeks. They are hopeful that this will be helpful to the patient and her overall functional status at home. The patient is also established with a paint factory worker, and I have encouraged the patient to work with that specialist to explore non pharmacologic methods of pain control and coping with chronic illness. These have not been strategies the patient has developed in the past, and she may experience some benefit from them in the future. That being said, at the present time, we have no further inpatient management tools which will be beneficial to this patient, and I would recommend ambulating her to ensure she is safe on her feet, feeding her to ensure that she able to tolerate solid intake, and administering her home dosage of pain medication, oxycodone immediate release 20 mg, to ensure she is able to keep her pain medication down, and then discharging her from the emergency department if these are all met. I discussed these recommendations with the emergency department staff and they are in agreement.
[2017-11-22] MEDS ORDERED: DIAZEPAM 5 MG TAB ONE (18:24)
[2017-11-22] MEDS ORDERED: DIAZEPAM 5 MG TAB PO ONE (18:30)
[2017-11-22 18:38] VITALS: BP 110/60; PULSE 78; RESP 19; TEMP 98.4; O2SAT 93
== END 2017-11-22 18:49 | disposition home or self-care (01) ==
DX: R10.9 Unspecified abdominal pain (principal); G89.29 Other chronic pain; F11.20 Opioid dependence, uncomplicated; F17.200 Nicotine dependence, unspecified, uncomplicated
CPT/HCPCS: 74177; 96374; 96375; 99285; J2405; Q9967; 82947-QW